=== PATIENT | female | born 1930 | race African-American/Black ===

== ENCOUNTER 2017-09-20 16:40 | Inpatient (IN) | payer OTHER ==
--- NOTE | 2017-09-20 16:55 | PDOC ---
History of Present Illness - General Chief Complaint: Nausea/Vomiting Stated Complaint: VOMITING Time Seen by Provider: 09/20/17 16:55 - History of Present Illness Initial Comments: The patient is an 87 year old female with a PMH of HTN, diabetes, PVD s/p right BKA, CAD, SVT, and dementia BIBEMS from [facility] after the staff noticed multiple episodes of coffee ground emesis. Patient denies any acute symptoms except for the vomiting. No acute symptoms such as fevers, chills , constipation, diarrhea, chest pain, SOB, or cough documented on [facility] transfer documents. 09/20/17 17:10 Past History - Past Medical History Allergies/Adverse Reactions: Allergies Allergy/AdvReac Type Severity Reaction Status Date / Time No Known Allergies Allergy Verified 09/20/17 17:28 Home Medications: Ambulatory Orders Aspirin [ASA -] 81 mg PO DAILY 01/30/14 Oxycodone HCl 5 mg PO BID 01/30/14 Acetaminophen [Tylenol .Extra-Strength -] 1,000 mg PO Q8H PRN #0 tablet Amlodipine Besylate [Norvasc -] 5 mg PO DAILY #0 tablet 02/04/14 Brimonidine Tartrate [Alphagan 0.2% -] 1 drop OU BID #0 drops 02/04/14 Insulin (Novolog) [Novolog Flexpen -] 0 units SQ ACHS #0 pen 02/04/14 Latanoprost 0.005% Eye Drops [Xalatan 0.005% Eye Drops -] 1 drop OU HS #0 drops 02/04/14 Cholecalciferol (Vitamin D3) [Vitamin D3 -] 50,000 unit PO WEEKLY 09/20/17 Docusate Sodium [Colace] 100 mg PO BID 09/20/17 Gabapentin [Neurontin -] 100 mg PO HS 09/20/17 Insulin (Levemir) [Levemir Flexpen -] 26 units SQ HS 09/20/17 Lisinopril [Prinivil] 30 mg PO DAILY 09/20/17 Magnesium Hydrox 2400MG/30Ml [Milk of Magnesia -] 30 ml PO DAILY PRN 09/20/17 Menthol [Icy Hot] 1 each TP ASDIR PRN 09/20/17 Mirtazapine [Remeron -] 30 mg PO HS 09/20/17 Polyethylene Glycol 3350 [Miralax (For Daily Use) -] 17 gm PO BID 09/20/17 Sennosides [Senna] 2 tab PO HS 09/20/17 Tramadol HCl 50 mg PO Q4H PRN 09/20/17 Dementia: Yes Diabetes: Yes HTN: Yes Hypercholesterolemia: Yes - Suicide/Smoking/Psychosocial Hx Smoking History: Unknown if ever smoked Have you smoked in the past 12 months: No Hx Alcohol Use: No Substance Use Type: None Review of Systems - Review of Systems Able to Perform ROS?: No (demented) *Physical Exam - Physical Exam General Appearance: Yes: Nourished, Appropriately Dressed, Apparent Distress, Mild Distress HEENT: positive: EOMI, CHALO, Normal ENT Inspection, Normal Voice Neck: positive: Trachea midline, Normal Thyroid, Supple. negative: Tender, Rigid Respiratory/Chest: positive: Lungs Clear, Normal Breath Sounds. negative: Chest Tender, Respiratory Distress Cardiovascular: positive: Regular Rhythm, Regular Rate Gastrointestinal/Abdominal: positive: Normal Bowel Sounds, Distended. negative : Tender, Flat Musculoskeletal: negative: Normal Inspection (Overall frail and weak) Extremity: positive: Normal Capillary Refill, Normal Inspection Integumentary: positive: Normal Color, Dry, Warm Neurologic: positive: Alert, Other (Pelasantly demented). negative: Fully Oriented ED Treatment Course - LABORATORY CBC & Chemistry Diagram: 09/23/17 05:40 09/23/17 05:40 Medical Decision Making - Medical Decision Making 87 year old female with multiple episodes of coffee ground emesis at [facility] and in our ED. No hiatory of UGIB and patient has no history of liver pathology so will have ot be evaluated for these pathologies on this admission Given Protonix 40, 2L IV NS, Coffee Ground Emesis seems to have ceased. @ units PRBC ordered but held because H/H only one unit below previous (chronic anemia) . Admitted patient under Dr. Grimes to the ICU under Dr. Lund. Switched over to protonix drip from 40 BID with appropriate consults placed. 09/20/17 19:32 *DC/Admit/Observation/Transfer Diagnosis at time of Disposition: Upper gastrointestinal hemorrhage - Referrals - Patient Instructions - Post Discharge Activity
--- NOTE | 2017-09-20 16:59 | PDOC ---
Attending Attestation - Resident Resident Name: Melina Garnettcharlesbam - HPI HPI: 09/24/17 09:20 Pt presents to the ED complaining of a one day history of coffee ground emesis. Denies other complaints. Extensive history as described in resident note. Patient is demented and is unable to give complete history. - Physicial Exam PE: 09/24/17 09:33 Agree with resident exam. Patient is alert but confused. Lungs are clear. Abdomen is soft, non tender and non distended. - Medical Decision Making 09/24/17 09:39 Pt presents to the ED with coffee ground emesis. Brief episode of hypotension, resolved after IV fluids. Hgb is stable. Will start protonix, admit to medicine for treatment of UGI bleed.
[2017-09-20] MEDS ORDERED: PANTOPRAZOLE SODIUM 40 MG VIAL IVPUSH ONE (17:20)
[2017-09-20] MEDS ORDERED: SODIUM CHLORIDE 0.9% 500 ML INFUS.BAG IV ONE ×2 (17:20→19:02)
[2017-09-20] MEDS ORDERED: ONDANSETRON 4 MG/2 ML VIAL IVPUSH ONE (17:23)
[2017-09-20 17:31] LABS: EOS % 1.3 % (0-4.5); HEMOGLOBIN 10.9 GM/dL (10.7-15.3); LYMPH % 27.8 % (8-40); MCH 27.4 pg (25.7-33.7); MCHC 32.9 g/dl (32.0-36.0); MEAN CELL VOLUME 83.3 fl (80-96); MEAN PLT VOLUME 8.6 fl (7.5-11.1); MONO % 8.1 % (3.8-10.2); NEUT % 61.8 % (42.8-82.8); PLATELET COUNT 309 K/MM3 (134-434); RBC 3.96 M/mm3 (3.60-5.2); RDW 15.9 % (11.6-15.6); WHITE BLOOD COUNT 11.2 K/mm3 (4.0-10.0)
[2017-09-20 17:46] LABS: URINE APPEARANCE CLOUDY; URINE BILIRUBIN NEGATIVE (<2.0 mg/dL); URINE COLOR AMBER; URINE GLUCOSE (UA) NEGATIVE (NEGATIVE); URINE KETONE TRACE (NEGATIVE); URINE LEUK ESTERASE NEGATIVE (NEGATIVE); URINE NITRITE NEGATIVE (NEGATIVE); URINE PROTEIN NEGATIVE (NEGATIVE); URINE UROBILINOGEN NEGATIVE mg/dL (0.2-1.0)
[2017-09-20] MEDS ORDERED: PANTOPRAZOLE SODIUM 40 MG VIAL ONE ×4 (17:52→21:00)
[2017-09-20] MEDS ORDERED: ONDANSETRON 4 MG/2 ML VIAL ONE ×2 (17:52→21:00)
[2017-09-20 17:57] LABS: INR 1.17 (0.82-1.09); PROTHROMBIN TIME (PATIENT) 13.2 SEC (9.7-13.0)
[2017-09-20 18:17] LABS: PHOSPHOROUS 3.4 mg/dL (2.5-4.9)
[2017-09-20 18:19] LABS: MAGNESIUM 2.6 mg/dL (1.8-2.4)
[2017-09-20 18:21] LABS: ALBUMIN 3.6 g/dl (3.4-5.0); ALK PHOS 70 U/L (45-117); ANION GAP 8 (8-16); BILIRUBIN,TOTAL 0.2 mg/dL (0.2-1.0); BLOOD UREA NITROGEN 44 mg/dL (7-18); CALCIUM 9.3 mg/dL (8.5-10.1); CHLORIDE 106 mmol/L (98-107); CO2 24 mmol/L (21-32); CREATININE 1.9 mg/dL (0.55-1.02); GLUCOSE,RANDOM 172 mg/dL (74-106); SGPT/ALT 31 U/L (12-78); SODIUM 138 mmol/L (136-145); TOT PROT 7.2 g/dl (6.4-8.2)
[2017-09-20 18:36] LABS: POTASSIUM 5.3 mmol/L (3.5-5.1); SGOT/AST 23 U/L (15-37)
--- NOTE | 2017-09-20 19:43 | PN ---
Teaching Attending Note Name of Resident: Arely Macedo ATTENDING PHYSICIAN STATEMENT I saw and evaluated the patient. I reviewed the resident's note and discussed the case with the resident. I agree with the resident's findings and plan as documented. SUBJECTIVE: 87 yo F with pmhx. of HTN, DM, PVD s/p R. BKA, CAD, SVT, and dementia who was BIBA from [facility] after coffee ground emesis, multiple times No chest pain or pressure. No shortness of breath. States she had plums earlier and she vomited that. Denies any current chest pain or pressure. No current nausea or vomiting. No diarrhea. States last BM was yesterday and brown, solid. No blood per rectum. No dark or tarry stools OBJECTIVE: Physical: VS: Vital Signs Period Temp Pulse Resp BP Sys/Cabral Pulse Ox Last 24 Hr 98.3 F-99.0 F 97-110 18-18 85-130/52-70 97-100 GEN: NAD, Resting in bed, AA0x3 HEENT: NCAT, PERRL, Throat without erythema or exudates CARD: RRR S1, S2 RESP: CTAB ABD: Distended, BSX4, NTD to palpation EXT: R. BKA, LLE - C/C/E, Bilateral UE - C/C/E, unable to move pt. to examine low back/gluteus. CBCD WBC 11.2 K/mm3 (4.0-10.0) H D 09/20/17 17:20 RBC 3.96 M/mm3 (3.60-5.2) 09/20/17 17:20 Hgb 10.9 GM/dL (10.7-15.3) 09/20/17 17:20 Hct 33.0 % (32.4-45.2) 09/20/17 17:20 MCV 83.3 fl (80-96) 09/20/17 17:20 MCHC 32.9 g/dl (32.0-36.0) 09/20/17 17:20 RDW 15.9 % (11.6-15.6) H 09/20/17 17:20 Plt Count 309 K/MM3 (134-434) 09/20/17 17:20 MPV 8.6 fl (7.5-11.1) D 09/20/17 17:20 CMP Sodium 138 mmol/L (136-145) 09/20/17 17:20 Potassium 5.3 mmol/L (3.5-5.1) H 09/20/17 17:20 Chloride 106 mmol/L (98-107) 09/20/17 17:20 Carbon Dioxide 24 mmol/L (21-32) 09/20/17 17:20 Anion Gap 8 (8-16) 09/20/17 17:20 BUN 44 mg/dL (7-18) H 09/20/17 17:20 Creatinine 1.9 mg/dL (0.55-1.02) H 09/20/17 17:20 Creat Clearance w eGFR 24.89 (>60) 09/20/17 17:20 Random Glucose 172 mg/dL (74-106) H 09/20/17 17:20 Calcium 9.3 mg/dL (8.5-10.1) 09/20/17 17:20 Total Bilirubin 0.2 mg/dL (0.2-1.0) D 09/20/17 17:20 AST 23 U/L (15-37) 09/20/17 17:20 ALT 31 U/L (12-78) 09/20/17 17:20 Alkaline Phosphatase 70 U/L (45-117) 09/20/17 17:20 Total Protein 7.2 g/dl (6.4-8.2) 09/20/17 17:20 Albumin 3.6 g/dl (3.4-5.0) 09/20/17 17:20 CARDIAC ENZYMES Creatine Kinase 44 IU/L (26-192) 09/20/17 17:20 Troponin I 0.02 ng/ml (0.00-0.05) 09/20/17 17:20 CXR: No acute process EKG: NSR St-T changes Inferolateral lead, no elevation Home Medications Medication Instructions Recorded Aspirin [ASA -] 81 mg PO DAILY 01/30/14 Oxycodone HCl 5 mg PO BID 01/30/14 Acetaminophen [Tylenol 1,000 mg PO Q8H PRN #0 tablet 02/04/14 .Extra-Strength -] Amlodipine Besylate [Norvasc -] 5 mg PO DAILY #0 tablet 02/04/14 Brimonidine Tartrate [Alphagan 1 drop OU BID #0 drops 02/04/14 0.2% -] Insulin (Novolog) [Novolog Flexpen 0 units SQ ACHS #0 pen 02/04/14 -] Latanoprost 0.005% Eye Drops 1 drop OU HS #0 drops 02/04/14 [Xalatan 0.005% Eye Drops -] Cholecalciferol (Vitamin D3) 50,000 unit PO WEEKLY 09/20/17 [Vitamin D3 -] Docusate Sodium [Colace] 100 mg PO BID 09/20/17 Gabapentin [Neurontin -] 100 mg PO HS 09/20/17 Insulin (Levemir) [Levemir Flexpen 26 units SQ HS 09/20/17 -] Lisinopril [Prinivil] 30 mg PO DAILY 09/20/17 Magnesium Hydrox 2400MG/30Ml [Milk 30 ml PO DAILY PRN 09/20/17 of Magnesia -] Menthol [Icy Hot] 1 each TP ASDIR PRN 09/20/17 Mirtazapine [Remeron -] 30 mg PO HS 09/20/17 Polyethylene Glycol 3350 [Miralax 17 gm PO BID 09/20/17 (For Daily Use) -] Sennosides [Senna] 2 tab PO HS 09/20/17 Tramadol HCl 50 mg PO Q4H PRN 09/20/17 ASSESSMENT AND PLAN: 87 yo F with pmhx. of HTN, DM, PVD s/p R. BKA, CAD, SVT, and dementia who was BIBA from [facility] after coffee ground emesis, being admitted for Upper GI bleed. 1.) Upper GI Bleed/Abd.Distension - NPo - 2 Large Bore Ivs - CBC Q 6h - Coags - Type & Screen, consent - Protonix - Hold ASA - GI consult - CT ABD wo Con 2.) SIRS? Sepsis ( Tachy may be from vomiting and leukocytosis reactive - Hold Abx. for now - Unkown Etiology - CT ABD wo con - Johns Cx - Repeat LA - IVF 3.) HTN - Hold MARILEE, Norvasc 4.) DM - FS - RAISS 5.) TRAY - U Lytes - Gentle IVF - Renally Dose all Meds - Nephro consult 6.) CAD Hx. - Hold ASA, MARILEE - Trop/EKG- Monitor 7.) Dvt Ppx - SCDS Admit to ICU CC Time: 40 minutes
[2017-09-20] MEDS ORDERED: PANTOPRAZOLE SODIUM 80 MG in SODIUM CHLORIDE 100 ML IVPB SCH ×2 (20:00→20:30)
--- NOTE | 2017-09-20 20:26 | MSN ---
Admitting History and Physical - Admission Chief Complaint: coffee ground emesis History of Present Illness: Patient is an 87 year old female with past medical hx of HTN, diabetes, PVD (S/ p right BKA), CAD, SVT, dementia that presented to the ER after multiple boughts of coffee ground emesis while at [facility]. The patient is a poor historian but stated that she remembered eating plums earlier in the day before feeling nauseas. The patient stated that she only remembered vomiting one time and that it was black in color. The patient states that she has a good appetite, has no abdominal pain, is not dizziness or weak. The patient is also not currently nauseas or or having any difficulty having bowel movements, although she does not remember her previous bowel moment. The patient also denies any chest pain, SOB, fever or chills. ED resident visualized black coffee ground emesis while patient was in ED. While in the ED the patient was given IV zofran 4mg and started on IV NS and protonix drip. 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 Cardiovascular: Yes: Other (perypheral vascular disease) Infectious Disease: Yes: C-Diff Musculoskeletal: Yes: Other (Right lower limb BKA) Endocrine: Yes: Diabetes Mellitus - Past Surgical History Past Surgical History: Yes: Amputation - Smoking History Smoking history: Unknown if ever smoked Have you smoked in the past 12 months: No - Alcohol/Substance Use Hx Alcohol Use: No - Social History Usual Living Arrangement: Yes: Retirement ADL: Support Services Home Medications - Allergies Allergies/Adverse Reactions: Allergies Allergy/AdvReac Type Severity Reaction Status Date / Time No Known Allergies Allergy Verified 09/20/17 17:28 - Home Medications Home Medications: Ambulatory Orders Aspirin [ASA -] 81 mg PO DAILY 01/30/14 Oxycodone HCl 5 mg PO BID 01/30/14 Acetaminophen [Tylenol .Extra-Strength -] 1,000 mg PO Q8H PRN #0 tablet Amlodipine Besylate [Norvasc -] 5 mg PO DAILY #0 tablet 02/04/14 Brimonidine Tartrate [Alphagan 0.2% -] 1 drop OU BID #0 drops 02/04/14 Insulin (Novolog) [Novolog Flexpen -] 0 units SQ ACHS #0 pen 02/04/14 Latanoprost 0.005% Eye Drops [Xalatan 0.005% Eye Drops -] 1 drop OU HS #0 drops 02/04/14 Cholecalciferol (Vitamin D3) [Vitamin D3 -] 50,000 unit PO WEEKLY 09/20/17 Docusate Sodium [Colace] 100 mg PO BID 09/20/17 Gabapentin [Neurontin -] 100 mg PO HS 09/20/17 Insulin (Levemir) [Levemir Flexpen -] 26 units SQ HS 09/20/17 Lisinopril [Prinivil] 30 mg PO DAILY 09/20/17 Magnesium Hydrox 2400MG/30Ml [Milk of Magnesia -] 30 ml PO DAILY PRN 09/20/17 Menthol [Icy Hot] 1 each TP ASDIR PRN 09/20/17 Mirtazapine [Remeron -] 30 mg PO HS 09/20/17 Polyethylene Glycol 3350 [Miralax (For Daily Use) -] 17 gm PO BID 09/20/17 Sennosides [Senna] 2 tab PO HS 09/20/17 Tramadol HCl 50 mg PO Q4H PRN 09/20/17 Review of Systems - Review of Systems Constitutional: denies: Chills, Fever, Lethargy Cardiovascular: denies: Chest Pain, Shortness of Breath Respiratory: denies: Cough, SOB Gastrointestinal: reports: Nausea, Vomiting. denies: Abdominal Pain, Constipation, Diarrhea Genitourinary: reports: No Symptoms Neurological: denies: Dizziness Physical Examination Vital Signs: Vital Signs Temperature 99.0 F 09/20/17 17:00 Pulse Rate 110 H 09/20/17 19:06 Respiratory Rate 18 09/20/17 19:06 Blood Pressure 130/53 09/20/17 19:06 O2 Sat by Pulse Oximetry (%) 98 09/20/17 19:06 Constitutional: Yes: Well Nourished, No Distress, Calm Eyes: Yes: Conjunctiva Clear, PERRL, Other (no conjuctival pallor noted) HENT: Yes: Atraumatic, Normocephalic Neck: Yes: Trachea Midline Cardiovascular: Yes: Tachycardia, S1, S2 Respiratory: Yes: Regular, CTA Bilaterally Gastrointestinal: Yes: Distention, Hyperactive Bowel Sounds ...Rectal Exam: Yes: Guaiac Negative Musculoskeletal: Yes: Other (right BKA) Extremities: Yes: Amputation (Right BKA) Wound/Incision: Yes: Well Approximated Neurological: Yes: Alert, Oriented Labs: CBC, BMP 09/20/17 17:20 09/20/17 17:20 Problem List - Problems (1) Bloody vomitus Code(s): K92.0 - HEMATEMESIS Assessment/Plan Patient is an 87 year old female with pmx of HTN, Diabetes, PVD (s/p R BKA), CAD , and dementia who is presnitng for coffee ground emesis that started today. Problem list: #Coffee ground emesis - R/O UGIB vs Obstruction - hb decreased from 10.9 on admission to 8.9 - Stool Occult blood test negative in ER - obtain CT with oral contrast - GI consult placed, follow up with possibility of upper endoscopy - place two large bore IVs - type/screen, and Coags - npo - start IV protonix - continue N/S - continue Zofran 4 mg PRN #TRAY - BUN 44 and Cr 1.9, elevated from baseline of BUN 24 and Cr 1.1 - continue hydration - hold MARILEE - obtain urine electrolytes - continue to monitor - nephrology consult placed #HTN - hold amlodipdine becasue NPO - hold ACER due to TRAY - continue to monitor BP - consider IV medication if the patient has increased BP # Diabetes - Start insulin sliding scale - hold at home medications #PVD and CAD - Repeat troponins - hold aspirin secondary to possible bleed - EKG showed new t wave changes in the inferior lateral leads, continue to monitor for signs of ACS #elevated WBC - possible reactive vs infectious process - obtain blood culture - monitor vital sign - search for possible source F/E/N -N/S -no electrolytes at this time -NPO Dispo - Admitted to ICU
[2017-09-20 20:28] LABS: BASO % 0.5 % (0-2.0); EOS % 1.2 % (0-4.5); HEMATOCRIT 27.4 % (32.4-45.2); HEMOGLOBIN 8.9 GM/dL (10.7-15.3); LYMPH % 17.4 % (8-40); MCHC 32.4 g/dl (32.0-36.0); MEAN CELL VOLUME 83.3 fl (80-96); MEAN PLT VOLUME 8.9 fl (7.5-11.1); MONO % 7.3 % (3.8-10.2); NEUT % 73.6 % (42.8-82.8); PLATELET COUNT 297 K/MM3 (134-434); RBC 3.29 M/mm3 (3.60-5.2); RDW 16.4 % (11.6-15.6)
[2017-09-20] MEDS ORDERED: INSULIN SLIDING SCALE (NOVOLOG) 1 VIAL SQ SCH (20:45)
[2017-09-20] MEDS ORDERED: PANTOPRAZOLE SODIUM 160 MG in DEXTROSE 5%-WATER - 290 ML IVPB SCH (20:45)
[2017-09-20] MEDS ORDERED: SODIUM CHLORIDE 1,000 ML IV SCH ×2 (20:45→21:00)
--- NOTE | 2017-09-20 20:47 | HP ---
CHIEF COMPLAINT: coffee ground emesis HISTORY OF PRESENT ILLNESS: Patient is a 87 F with a PMHx of HTN, DM, PVD s/p R BKA, CAD, Dementia, presented to the ED from [facility] because of multiple Coffee ground emesis. Patient is a poor historian. Patient mentions eating plums at the custodial that her friend gave which she says she vomited. She described the vomit as black in color. ED resident says the patient had multiple episodes of coffee ground emesis in the ED. Patient currently denies nausea. She said she had 1 normal BM today and yesterday. Patient denies chest pain, sob, dizziness, nausea, bloody stools, dysuria, diarrhea. ER course was notable for: (1) SIRS: Tachy 120, WBC 11.2 (2) IV fluids, Protonix, Zofran Recent Travel: n/a PAST MEDICAL HISTORY: per HPI PAST SURGICAL HISTORY: r bka Social History: Smoking: denies Alcohol:denies Drugs: denies Family History: Allergies No Known Allergies Allergy (Verified 09/20/17 17:28) HOME MEDICATIONS: Home Medications Medication Instructions Recorded Aspirin [ASA -] 81 mg PO DAILY 01/30/14 Oxycodone HCl 5 mg PO BID 01/30/14 Acetaminophen [Tylenol 1,000 mg PO Q8H PRN #0 tablet 02/04/14 .Extra-Strength -] Amlodipine Besylate [Norvasc -] 5 mg PO DAILY #0 tablet 02/04/14 Brimonidine Tartrate [Alphagan 1 drop OU BID #0 drops 02/04/14 0.2% -] Insulin (Novolog) [Novolog Flexpen 0 units SQ ACHS #0 pen 02/04/14 -] Latanoprost 0.005% Eye Drops 1 drop OU HS #0 drops 02/04/14 [Xalatan 0.005% Eye Drops -] Cholecalciferol (Vitamin D3) 50,000 unit PO WEEKLY 09/20/17 [Vitamin D3 -] Docusate Sodium [Colace] 100 mg PO BID 09/20/17 Gabapentin [Neurontin -] 100 mg PO HS 09/20/17 Insulin (Levemir) [Levemir Flexpen 26 units SQ HS 09/20/17 -] Lisinopril [Prinivil] 30 mg PO DAILY 09/20/17 Magnesium Hydrox 2400MG/30Ml [Milk 30 ml PO DAILY PRN 09/20/17 of Magnesia -] Menthol [Icy Hot] 1 each TP ASDIR PRN 09/20/17 Mirtazapine [Remeron -] 30 mg PO HS 09/20/17 Polyethylene Glycol 3350 [Miralax 17 gm PO BID 09/20/17 (For Daily Use) -] Sennosides [Senna] 2 tab PO HS 09/20/17 Tramadol HCl 50 mg PO Q4H PRN 09/20/17 REVIEW OF SYSTEMS CONSTITUTIONAL: Absent: fever, chills, diaphoresis, generalized weakness, malaise, loss of appetite, weight change CARDIOVASCULAR: Absent: chest pain, syncope, palpitations, irregular heart rate, lightheadedness , peripheral edema RESPIRATORY: Absent: cough, shortness of breath, dyspnea with exertion, orthopnea, wheezing, stridor, hemoptysis GASTROINTESTINAL: vomited Absent: abdominal pain, abdominal distension, nausea, diarrhea, constipation, melena, hematochezia GENITOURINARY: Absent: dysuria, frequency, urgency, hesitancy, hematuria, flank pain, genital pain ENDOCRINE: Absent: unexplained weight gain, unexplained weight loss, heat intolerance, cold intolerance NEUROLOGIC: Absent: headache, focal weakness or paresthesias, dizziness, unsteady gait, seizure, mental status changes, bladder or bowel incontinence PHYSICAL EXAMINATION Vital Signs - 24 hr 09/20/17 09/20/17 09/20/17 16:40 17:00 17:50 Temperature 98.3 F 99.0 F Pulse Rate 100 H Pulse Rate [ 103 H Apical] Respiratory 18 18 Rate Blood Pressure 126/60 Blood Pressure 85/52 [Right Arm] O2 Sat by Pulse 100 100 100 Oximetry (%) 09/20/17 09/20/17 18:22 19:06 Temperature Pulse Rate Pulse Rate [ 97 H 110 H Apical] Respiratory 18 18 Rate Blood Pressure Blood Pressure 120/70 130/53 [Right Arm] O2 Sat by Pulse 97 98 Oximetry (%) GENERAL: A/O x1 EYES: extraocular movements intact, sclera anicteric, conjunctiva clear. No lid lag. EARS, NOSE, THROAT: oropharynx clear without exudates. Moist mucous membranes. NECK: supple without lymphadenopathy, JVD, or masses. LUNGS: Breath sounds equal, clear to auscultation bilaterally. No wheezes, and no crackles HEART: tachy, normal S1 and S2 without murmur, rub or gallop. ABDOMEN: Hyperactive bowel sounds, distended abdomen, nontender to palpation. UPPER EXTREMITIES: 2+ pulses, warm, No peripheral edema. LOWER EXTREMITIES: 2+ pulses, No peripheral edema. R L amputation below knee NEUROLOGICAL: Cranial nerves II-XII intact. Normal speech. Laboratory Results - last 24 hr 09/20/17 09/20/17 09/20/17 17:11 17:20 17:20 WBC 11.2 H D RBC 3.96 Hgb 10.9 Hct 33.0 MCV 83.3 MCH 27.4 MCHC 32.9 RDW 15.9 H Plt Count 309 MPV 8.6 D Neutrophils % 61.8 Lymphocytes % 27.8 D Monocytes % 8.1 Eosinophils % 1.3 Basophils % 1.0 PT with INR 13.20 H INR 1.17 H Sodium Potassium Chloride Carbon Dioxide Anion Gap BUN Creatinine Creat Clearance w eGFR Random Glucose Lactic Acid Calcium Phosphorus Magnesium Total Bilirubin AST ALT Alkaline Phosphatase Creatine Kinase Troponin I Total Protein Albumin Urine Color Urine Appearance Urine pH Ur Specific Trail Urine Protein Urine Glucose (UA) Urine Ketones Urine Blood Urine Nitrite Urine Bilirubin Urine Urobilinogen Ur Leukocyte Esterase Stool Occult Blood Negative Blood Type Antibody Screen 09/20/17 09/20/17 09/20/17 17:20 17:20 17:20 WBC RBC Hgb Hct MCV MCH MCHC RDW Plt Count MPV Neutrophils % Lymphocytes % Monocytes % Eosinophils % Basophils % PT with INR INR Sodium 138 Potassium 5.3 H Chloride 106 Carbon Dioxide 24 Anion Gap 8 BUN 44 H Creatinine 1.9 H Creat Clearance w eGFR 24.89 Random Glucose 172 H Lactic Acid 2.7 H* Calcium 9.3 Phosphorus Magnesium Total Bilirubin 0.2 D AST 23 ALT 31 Alkaline Phosphatase 70 Creatine Kinase Troponin I Total Protein 7.2 Albumin 3.6 Urine Color Urine Appearance Urine pH Ur Specific Trail Urine Protein Urine Glucose (UA) Urine Ketones Urine Blood Urine Nitrite Urine Bilirubin Urine Urobilinogen Ur Leukocyte Esterase Stool Occult Blood Blood Type O POSITIVE Antibody Screen Negative 09/20/17 09/20/17 17:20 17:30 WBC RBC Hgb Hct MCV MCH MCHC RDW Plt Count MPV Neutrophils % Lymphocytes % Monocytes % Eosinophils % Basophils % PT with INR INR Sodium Potassium Chloride Carbon Dioxide Anion Gap BUN Creatinine Creat Clearance w eGFR Random Glucose Lactic Acid Calcium Phosphorus 3.4 Magnesium 2.6 H Total Bilirubin AST ALT Alkaline Phosphatase Creatine Kinase 44 Troponin I 0.02 Total Protein Albumin Urine Color Sanna Urine Appearance Cloudy Urine pH [address] 1.024 Urine Protein Negative Urine Glucose (UA) Negative Urine Ketones Trace H Urine Blood Negative Urine Nitrite Negative Urine Bilirubin Negative Urine Urobilinogen Negative Ur Leukocyte Esterase Negative Stool Occult Blood Blood Type Antibody Screen ASSESSMENT/PLAN: 87 yo F with a PMHx HTN, DM, PVD, s/p R BKA, CAD, dementia, presented from [facility] [place] with coffee ground emesis and abdominal distention. #Upper GI bleed -Hgb in ED 10.9, repeat Hgb 8.9 -CT Abd w/ Oral contrast -NPO -CBC q6h -Coags -Type screen -2 large bore IVs -Protonix -Aspirin held -GI consulted: Dr Mccormick -FOBT neg -Transfuse if Hgb<7 #Abdominal distention -KUB -CT Abd w/ oral contrast #SIRS -tachy, elevated wbc -likely reactive vs unlikely infectious -Bcx,Ucx -Ct Abd -Hold Abx at this time -Repeat LA -IVF -monitor VS #TRAY -1.1 cr in July from [place] paperwork -Urine lytes, cr -IV fluids @83ml/hour -renally dose all meds -avoid nephrotoxins -Nephro consulted #HTN/CAD -On Norvasc 5mg at home. -HELD norvasc due to hypotension and patient NPO -Will monitor BP -Held aspirin due to UGIB -cont when appropriate #DM -BGM -ISS -Held Home Levemir 26U HS #Hyperkalemia/Magnesium -5.3 K, Mg 2.6 -Possibly taking milk of magnesia a CO (need med rec) -will monitor #FEN -IV fluids @ 83ml/hour -Monitor K -NPO #PPX -SCDs -Protonix Gtt ICU admission Visit type - Emergency Visit Emergency Visit: Yes ED Registration Date: 09/20/17 Care time: The patient presented to the Emergency Department on the above date and was hospitalized for further evaluation of their emergent condition. - New Patient This patient is new to me today: Yes Date on this admission: 09/25/17 - Critical Care Critical Care patient: Yes Total Critical Care Time (in minutes): 40 Critical Care Statement: The care of this patient involved high complexity decision making to prevent further life threatening deterioration of the patient 's condition and/or to evaluate & treat vital organ system(s) failure or risk of failure. Hospitalist Screening - Colonoscopy Questionnaire Colonoscopy Questionnaire: Colonoscopy Questionnaire - Patient: 50 - 75 years old and never had a screening colonoscopy: Unknown History of colon or rectal polyps, or CA: Unknown History of IBD, Crohn's disease or UC: Unknown History of abdominal radiation therapy as a child: Unknown - Relative: 1 with colon or rectal CA, or polyps at age 60 or younger: Unknown Colon or rectal CA diagnosed at age 45 or younger: Unknown Multiple relatives with colon or rectal CA: Unknown - Outcome: Screening Result: Negative Screen
[2017-09-20] MEDS ORDERED: ONDANSETRON 4 MG/2 ML VIAL IVPUSH PRN (21:03)
[2017-09-20] MEDS ORDERED: BRIMONIDINE TARTRATE 0.2% OPHTHALMIC 5 ML BOTTLE OU SCH (22:00)
[2017-09-20] MEDS ORDERED: LATANOPROST 0.005% OPHTH SOLN 2.5ML BOTTLE OU SCH (22:00)
[2017-09-20] MEDS ORDERED: SODIUM CHLORIDE 1,000 ML IV STA (22:09)
[2017-09-20] MEDS: CHLORHEXIDINE GLUCONATE 4% CLEANSER FOR DECOLONIZATION TP SCH (22:37)
[2017-09-20] MEDS: SODIUM CHLORIDE 1,000 ML IV SCH (23:07)
[2017-09-20] MEDS: BRIMONIDINE TARTRATE 0.2% OPHTHALMIC 5 ML BOTTLE OU SCH (23:08)
[2017-09-20] MEDS: LATANOPROST 0.005% OPHTH SOLN 2.5ML BOTTLE OU SCH (23:08)
[2017-09-20] MEDS: MUPIROCIN 2% TOPICAL OINTMENT FOR DECOLONIZATION NS SCH (23:09)
[2017-09-21] MEDS ORDERED: INSULIN SLIDING SCALE (NOVOLOG) 1 VIAL SQ SCH
[2017-09-21 00:42] LABS: HEMOGLOBIN 8.1 GM/dL (10.7-15.3); MCHC 32.6 g/dl (32.0-36.0)
[2017-09-21 00:43] LABS: HEMATOCRIT 24.9 % (32.4-45.2); MEAN PLT VOLUME 8.5 fl (7.5-11.1); PLATELET COUNT 234 K/MM3 (134-434); RDW 16.2 % (11.6-15.6); WHITE BLOOD COUNT 9.6 K/mm3 (4.0-10.0)
[2017-09-21] MEDS: INSULIN SLIDING SCALE (NOVOLOG) 1 VIAL SQ SCH ×6 (02:00→23:17)
[2017-09-21 04:25] LABS: ALBUMIN 2.9 g/dl (3.4-5.0); ALK PHOS 55 U/L (45-117); ANION GAP 10 (8-16); BILIRUBIN,TOTAL 0.2 mg/dL (0.2-1.0); BLOOD UREA NITROGEN 35 mg/dL (7-18); CHLORIDE 113 mmol/L (98-107); CO2 21 mmol/L (21-32); CREATININE 1.4 mg/dL (0.55-1.02); GLUCOSE,RANDOM 138 mg/dL (74-106); MAGNESIUM 2.3 mg/dL (1.8-2.4); PHOSPHOROUS 2.5 mg/dL (2.5-4.9); POTASSIUM 5.2 mmol/L (3.5-5.1); SGOT/AST 21 U/L (15-37); SGPT/ALT 24 U/L (12-78); SODIUM 144 mmol/L (136-145); TOT PROT 5.7 g/dl (6.4-8.2)
[2017-09-21] MEDS ORDERED: PANTOPRAZOLE SODIUM 80 MG in SODIUM CHLORIDE 100 ML IVPB SCH (06:00)
[2017-09-21 06:26] LABS: INR 1.19 (0.82-1.09); PROTHROMBIN TIME (PATIENT) 13.4 SEC (9.7-13.0)
[2017-09-21 06:38] LABS: CALCIUM 7.7 mg/dL (8.5-10.1); CHLORIDE 114 mmol/L (98-107); SODIUM 144 mmol/L (136-145)
[2017-09-21 06:45] LABS: ALBUMIN 2.8 g/dl (3.4-5.0); ALK PHOS 53 U/L (45-117); ANION GAP 8 (8-16); BILIRUBIN,TOTAL 0.2 mg/dL (0.2-1.0); BLOOD UREA NITROGEN 31 mg/dL (7-18); CO2 22 mmol/L (21-32); CREATININE 1.2 mg/dL (0.55-1.02); GLUCOSE,RANDOM 110 mg/dL (74-106); MAGNESIUM 2.2 mg/dL (1.8-2.4); PHOSPHOROUS 2.5 mg/dL (2.5-4.9); SGOT/AST 20 U/L (15-37); SGPT/ALT 21 U/L (12-78); TOT PROT 5.5 g/dl (6.4-8.2)
[2017-09-21 09:21] LABS: HEMATOCRIT 23.8 % (32.4-45.2); HEMOGLOBIN 7.6 GM/dL (10.7-15.3); MCH 26.8 pg (25.7-33.7); MEAN CELL VOLUME 83.6 fl (80-96); MEAN PLT VOLUME 7.8 fl (7.5-11.1); PLATELET COUNT 220 K/MM3 (134-434); RBC 2.84 M/mm3 (3.60-5.2); WHITE BLOOD COUNT 8.3 K/mm3 (4.0-10.0)
--- NOTE | 2017-09-21 10:29 | EKG ---
Test Reason : Blood Pressure : / mmHG Vent. Rate : 111 BPM Atrial Rate : 111 BPM P-R Int : 122 ms QRS Dur : 102 ms QT Int : 334 ms P-R-T Axes : 058 030 178 degrees QTc Int : 454 ms SINUS TACHYCARDIA ABNORMAL ECG WHEN COMPARED WITH ECG OF 30-JAN-2014 09:56, SINUS RHYTHM HAS REPLACED JUNCTIONAL RHYTHM VENT. RATE HAS INCREASED BY 43 BPM T WAVE INVERSION NOW EVIDENT IN INFERIOR LEADS T WAVE INVERSION NOW EVIDENT IN LATERAL LEADS Confirmed by RESHMA MAYA MD ([id number]) on 09/21/2017 10:28:54 AM Referred By: Confirmed By:RESHMA MAYA MD
[2017-09-21] MEDS: BRIMONIDINE TARTRATE 0.2% OPHTHALMIC 5 ML BOTTLE OU SCH ×2 (10:38→22:30)
[2017-09-21] MEDS ORDERED: PT OWN MED DRAWER 7, Y5N ONE (10:41)
[2017-09-21] MEDS: MUPIROCIN 2% TOPICAL OINTMENT FOR DECOLONIZATION NS SCH ×2 (11:00→23:17)
--- NOTE | 2017-09-21 11:20 | PN ---
Teaching Attending Note Name of Resident: Becka Lewis ATTENDING PHYSICIAN STATEMENT I saw and evaluated the patient. I reviewed the resident's note and discussed the case with the resident. I agree with the resident's findings and plan as documented. SUBJECTIVE: Pt seen and examined in the ICU. Briefly, 87yo female with h/o HTN, DM, PAD s/p R BKA, CAD, dementia who was transferred from the assisted for coffee ground emesis. History not reliable given dementia. H/H dropping, denies abdominal pain. Has not vomited since admission to ICU. Abdominal film showing gastric distention. Seen by GI who is planning upper endoscopy. OBJECTIVE: Last Vital Signs Temp Pulse Resp BP Pulse Ox 98.4 F 88 12 111/47 100 09/21/17 09:28 09/21/17 09:28 09/21/17 09:28 09/21/17 09:28 09/21/17 08:11 Intake & Output 09/18/17 09/19/17 09/20/17 09/21/17 23:59 23:59 23:59 23:59 Intake Total 1000 Balance 1000 Weight 57.153 kg 57.198 kg Gen: NAD at rest Heart: RRR Lung: decreased breath sounds at the bases Abd: soft, nontender Ext: R BKA CBC, BMP 09/21/17 09:00 09/21/17 05:40 Active Medications Brimonidine Tartrate (Alphagan 0.2% -) 1 drop OU BID [facility] Last Admin: 09/21/17 10:38 Dose: 1 drop Chlorhexidine Gluconate (Hibiclens For Decolonization -) 1 applic TP HS [facility] Last Admin: 09/20/17 22:37 Dose: 1 applic Sodium Chloride (Normal Saline -) 1,000 mls @ 83 mls/hr IV ASDIR [facility] Last Admin: 09/20/17 23:07 Dose: 83 mls/hr Pantoprazole Sodium 80 mg/ (Sodium Chloride) 100 mls @ 10 mls/hr IVPB Q10H [facility] Stop: 09/21/17 15:59 Last Admin: 09/21/17 06:00 Dose: 10 mls/hr Pantoprazole Sodium 160 mg/ (Dextrose) 290 mls @ 14.5 mls/hr IVPB Q20H [facility] Insulin Aspart (Novolog Vial Sliding Scale -) 1 vial SQ Q4HPO [facility] PRN Reason: Protocol Last Admin: 09/21/17 10:30 Dose: Not Given Latanoprost (Xalatan 0.005% Eye Drops -) 1 drop OU HS [facility] Last Admin: 09/20/17 23:08 Dose: 1 drop Mupirocin (Bactroban Ointment (For Decolonization) -) 1 applic NS BID [facility] Stop: 09/25/17 21:59 Last Admin: 09/20/17 23:09 Dose: Not Given ASSESSMENT AND PLAN: GI Bleed Acute Blood Loss Anemia r/o Gastric/Duodenal Obstruction/Mass Lactic Acidosis Acute Kidney Injury HTN DM Dementia - monitor CBC, coags - transfuse as needed - continue protonix - IVF - for endoscopy - ensure large bore peripheral access - mechanical DVT prophylaxis - continue ICU monitoring critical care time spent in reviewing chart, evaluating patient and formulating plan 35 min
[2017-09-21] MEDS: SODIUM CHLORIDE 1,000 ML IV SCH ×2 (12:00→21:00)
--- NOTE | 2017-09-21 12:29 | CON.GI ---
Consult Consult Specialty:: GI Reason for Consultation:: coffee ground emesis - History of Present Illness History of Present Illness: chart reviewed. The events noted. As per initial intake: Patient is a 87 F with a PMHx of HTN, DM, PVD s/p R BKA, CAD, Dementia, presented to the ED from [facility] because of multiple Coffee ground emesis. Patient is a poor historian. Patient mentions eating pl[facility] the [facility] that her friend gave which she says she vomited. She described the vomit as black in color. ED resident says the patient had multiple episodes of coffee ground emesis in the ED. Patient currently denies nausea. She said she had 1 normal BM today and yesterday. Patient denies chest pain, sob, dizziness, nausea, bloody stools, dysuria, diarrhea. At the time of This encounter, the patient appears comfortable. Awake and alert. Not in distress, or pain. Denies abdominal symptoms. No further coffee -ground emesis, hematemesis, melena, hematochezia, diarrhea. The patient is drinking contrast material for scheduled CT abdomen and pelvis. No hemodynamic instability noted. Decrease in hemoglobin by 3 g overnight. - History Source History Provided By: Medical Record, Caregiver, Transfer Record - Past Medical History PUBLICITY MANAGER: Yes: Dementia Cardio/Vascular: Yes: Other (perypheral vascular disease) Infectious Disease: Yes: C-Diff Musculoskeletal: Yes: Other (Right lower limb BKA) Endocrine: Yes: Diabetes Mellitus - Past Surgical History Past Surgical History: Yes: Amputation - Alcohol/Substance Use Hx Alcohol Use: No - Smoking History Smoking history: Unknown if ever smoked Have you smoked in the past 12 months: No - Social History ADL: Support Services Home Medications - Allergies Allergies/Adverse Reactions: Allergies Allergy/AdvReac Type Severity Reaction Status Date / Time No Known Allergies Allergy Verified 09/20/17 17:28 - Home Medications Home Medications: Ambulatory Orders Aspirin [ASA -] 81 mg PO DAILY 01/30/14 Oxycodone HCl 5 mg PO BID 01/30/14 Acetaminophen [Tylenol .Extra-Strength -] 1,000 mg PO Q8H PRN #0 tablet Amlodipine Besylate [Norvasc -] 5 mg PO DAILY #0 tablet 02/04/14 Brimonidine Tartrate [Alphagan 0.2% -] 1 drop OU BID #0 drops 02/04/14 Insulin (Novolog) [Novolog Flexpen -] 0 units SQ ACHS #0 pen 02/04/14 Latanoprost 0.005% Eye Drops [Xalatan 0.005% Eye Drops -] 1 drop OU HS #0 drops 02/04/14 Cholecalciferol (Vitamin D3) [Vitamin D3 -] 50,000 unit PO WEEKLY 09/20/17 Docusate Sodium [Colace] 100 mg PO BID 09/20/17 Gabapentin [Neurontin -] 100 mg PO HS 09/20/17 Insulin (Levemir) [Levemir Flexpen -] 26 units SQ HS 09/20/17 Lisinopril [Prinivil] 30 mg PO DAILY 09/20/17 Magnesium Hydrox 2400MG/30Ml [Milk of Magnesia -] 30 ml PO DAILY PRN 09/20/17 Menthol [Icy Hot] 1 each TP [facility] PRN 09/20/17 Mirtazapine [Remeron -] 30 mg PO HS 09/20/17 Polyethylene Glycol 3350 [Miralax (For Daily Use) -] 17 gm PO BID 09/20/17 Sennosides [Senna] 2 tab PO HS 09/20/17 Tramadol HCl 50 mg PO Q4H PRN 09/20/17 Family Disease History - Family Disease History Family History: Unremarkable (noncontributory) Review of Systems Unable to obtain ROS, reason: dimension Physical Exam-GI Vital Signs: Vital Signs Temperature 98.4 F 09/21/17 10:00 Pulse Rate 88 09/21/17 10:00 Respiratory Rate 12 09/21/17 10:00 Blood Pressure 111/47 09/21/17 10:00 O2 Sat by Pulse Oximetry (%) 100 09/21/17 08:11 Constitutional: Yes: No Distress, Calm Eyes: Yes: Conjunctiva Clear HENT: Yes: Atraumatic Neck: Yes: Supple Cardiovascular: Yes: Regular Rate and Rhythm Respiratory: Yes: Regular ...Auscultate: Yes: Normoactive Bowel Sounds ...Rectal Exam: Yes: Guaiac Negative Neurological: Yes: Alert Labs: CBC, BMP 09/21/17 09:00 09/21/17 05:40 INR, PTT INR 1.19 (0.82-1.09) H 09/21/17 05:40 Laboratory Last Values WBC 8.3 K/mm3 (4.0-10.0) 09/21/17 09:00 RBC 2.84 M/mm3 (3.60-5.2) L 09/21/17 09:00 Hgb 7.6 GM/dL (10.7-15.3) L 09/21/17 09:00 Hct 23.8 % (32.4-45.2) L 09/21/17 09:00 MCV 83.6 fl (80-96) 09/21/17 09:00 MCH 26.8 pg (25.7-33.7) 09/21/17 09:00 MCHC 32.0 g/dl (32.0-36.0) 09/21/17 09:00 RDW 16.0 % (11.6-15.6) H 09/21/17 09:00 Plt Count 220 K/MM3 (134-434) 09/21/17 09:00 MPV 7.8 fl (7.5-11.1) 09/21/17 09:00 Neutrophils % 73.6 % (42.8-82.8) 09/20/17 20:15 Lymphocytes % 17.4 % (8-40) D 09/20/17 20:15 Monocytes % 7.3 % (3.8-10.2) 09/20/17 20:15 Eosinophils % 1.2 % (0-4.5) 09/20/17 20:15 Basophils % 0.5 % (0-2.0) 09/20/17 20:15 PT with INR 13.40 SEC (9.7-13.0) H 09/21/17 05:40 INR 1.19 (0.82-1.09) H 09/21/17 05:40 Sodium 144 mmol/L (136-145) 09/21/17 05:40 Potassium 5.0 mmol/L (3.5-5.1) 09/21/17 05:40 Chloride 114 mmol/L (98-107) H 09/21/17 05:40 Carbon Dioxide 22 mmol/L (21-32) 09/21/17 05:40 Anion Gap 8 (8-16) 09/21/17 05:40 BUN 31 mg/dL (7-18) H 09/21/17 05:40 Creatinine 1.2 mg/dL (0.55-1.02) H 09/21/17 05:40 Creat Clearance w eGFR 42.30 (>60) 09/21/17 05:40 POC Glucometer 178.51900 UNITS (80-120) 09/20/17 20:55 Random Glucose 110 mg/dL (74-106) H 09/21/17 05:40 Lactic Acid 1.0 mmol/L (0.0-2.0) 09/21/17 00:35 Calcium 7.7 mg/dL (8.5-10.1) L 09/21/17 05:40 Phosphorus 2.5 mg/dL (2.5-4.9) 09/21/17 05:40 Magnesium 2.2 mg/dL (1.8-2.4) 09/21/17 05:40 Total Bilirubin 0.2 mg/dL (0.2-1.0) 09/21/17 05:40 AST 20 U/L (15-37) 09/21/17 05:40 ALT 21 U/L (12-78) 09/21/17 05:40 Alkaline Phosphatase 53 U/L (45-117) 09/21/17 05:40 Creatine Kinase 40 IU/L (26-192) 09/21/17 00:35 Troponin I 0.15 ng/ml (0.00-0.05) H 09/21/17 00:35 Total Protein 5.5 g/dl (6.4-8.2) L 09/21/17 05:40 Albumin 2.8 g/dl (3.4-5.0) L 09/21/17 05:40 Urine Color Sanna 09/20/17 17:30 Urine Appearance Cloudy 09/20/17 17:30 Urine pH 5.0 (5.0-8.0) 09/20/17 17:30 Ur Specific [place] 1.024 (1.001-1.035) 09/20/17 17:30 Urine Protein Negative (NEGATIVE) 09/20/17 17:30 Urine Glucose (UA) Negative (NEGATIVE) 09/20/17 17:30 Urine Ketones Trace (NEGATIVE) H 09/20/17 17:30 Urine Blood Negative (NEGATIVE) 09/20/17 17:30 Urine Nitrite Negative (NEGATIVE) 09/20/17 17:30 Urine Bilirubin Negative (<2.0 mg/dL) 09/20/17 17:30 Urine Urobilinogen Negative mg/dL (0.2-1.0) 09/20/17 17:30 Ur Leukocyte Esterase Negative (NEGATIVE) 09/20/17 17:30 Ur Random Sodium 44 MMOL/L 09/21/17 00:35 Ur Random Potassium 60.7 MMOL/L 09/21/17 00:35 Ur Random Chloride 61 MMOL/L 09/21/17 00:35 Urine Creatinine 110.0 mg/dL (20-320) 09/21/17 00:35 Stool Occult Blood Negative (NEGATIVE) 09/20/17 17:20 Blood Type O POSITIVE 09/21/17 00:35 Antibody Screen Negative 09/21/17 00:35 Crossmatch See Detail 09/21/17 00:35 Imaging - Results Cat Scan: Report Reviewed ( cholelithiasis, no acute GI pathology.) Problem List - Problems (1) Upper gastrointestinal hemorrhage Code(s): K92.2 - GASTROINTESTINAL HEMORRHAGE, UNSPECIFIED Assessment/Plan Suspected upper GI bleeding. The patient is currently stable with no signs of ongoing gastrointestinal bleed. Unable to perform upper endoscopy due to patient drinking contrast. Plan endoscopy for tomorrow morning, or sooner if signs of active gastrointestinal bleed. Keep nothing by mouth. PPI IV piggyback twice a day. Close monitoring for signs and symptoms of acute blood loss. Unable to reach patient's son due to Telephone number, as documented in chart, not in service.
--- NOTE | 2017-09-21 12:44 | PN ---
Teaching Attending Note Name of Resident: Rudy Matthews ATTENDING PHYSICIAN STATEMENT I saw and evaluated the patient. I reviewed the resident's note and discussed the case with the resident. I agree with the resident's findings and plan as documented. SUBJECTIVE: Denies any pain, N/V or fever . No events over night , no new episodes of emesis OBJECTIVE: NAD . MMM CV: RRR, 2/6 Sm at RUSB. Lungs : minimal bibasilar crackles Abd: soft, slightly ditended in upper part. tympanic in upper part, no tenderness Ext: no edema or erythema . R BKA with clean normal stump with no skin breakdown ASSESSMENT AND PLAN: 87 y/o lady with h/o dementia , CAD, PVD, R BKA, DM , HTN, And SVt who was brought form [place] with coffee ground emesis . 1- Upper GI bleed. with acute blood loss anemia. r/o gastric or duodenal ulcers. r/o gastritis - PPI gtt - NPO - GI eval for EGD - transfuse RBC - repeat HB and monitor - cont IVF - hold ASA 2- Stomach distention: on exam and KUB. possible duodenal bulb ulcer with inflammation or ulcerated mass with partial obstruction - follow EGD 3- h/o HTN: old all antihypertensives in settig of GI bleed 4- H/o CAd, PVD: hold ASA Dispo : ICU level of care. Critical Care Total Critical Care Time (in minutes): 40 Critical Care Statement: The care of this patient involved high complexity decision making to prevent further life threatening deterioration of the patient 's condition and/or to evaluate & treat vital organ system(s) failure or risk of failure.
--- NOTE | 2017-09-21 13:02 | CONSULT ---
Consult - text type - Consultation Consultation Note: Renal Consult for TRAY This is a 87 year old woman with PMhx of Dementia, PVD s/p R BKA, Hypertension, DM who presented from home with coffee ground emesis and admitted for GI bleed with TRAY with Cr of 1.9. Pt is awake and alert and denies any history of kidney disease. No further emesis since admission. No Melena. Hgb has been down trending. Pt was on ACEi as a outpatient. BP is low/normal here. Pt denies any abd pain, N/V, chest pain, Fever, chills, flank pain. PMhx: as above Allergies: NKDA Family Hx: NC Social Hx: No T/A/D ROS: as per HPI Home Medications Medication Instructions Recorded Aspirin [ASA -] 81 mg PO DAILY 01/30/14 Oxycodone HCl 5 mg PO BID 01/30/14 Acetaminophen [Tylenol 1,000 mg PO Q8H PRN #0 tablet 02/04/14 .Extra-Strength -] Amlodipine Besylate [Norvasc -] 5 mg PO DAILY #0 tablet 02/04/14 Brimonidine Tartrate [Alphagan 1 drop OU BID #0 drops 02/04/14 0.2% -] Insulin (Novolog) [Novolog Flexpen 0 units SQ ACHS #0 pen 02/04/14 -] Latanoprost 0.005% Eye Drops 1 drop OU HS #0 drops 02/04/14 [Xalatan 0.005% Eye Drops -] Cholecalciferol (Vitamin D3) 50,000 unit PO WEEKLY 09/20/17 [Vitamin D3 -] Docusate Sodium [Colace] 100 mg PO BID 09/20/17 Gabapentin [Neurontin -] 100 mg PO HS 09/20/17 Insulin (Levemir) [Levemir Flexpen 26 units SQ HS 09/20/17 -] Lisinopril [Prinivil] 30 mg PO DAILY 09/20/17 Magnesium Hydrox 2400MG/30Ml [Milk 30 ml PO DAILY PRN 09/20/17 of Magnesia -] Menthol [Icy Hot] 1 each TP ASDIR PRN 09/20/17 Mirtazapine [Remeron -] 30 mg PO HS 09/20/17 Polyethylene Glycol 3350 [Miralax 17 gm PO BID 09/20/17 (For Daily Use) -] Sennosides [Senna] 2 tab PO HS 09/20/17 Tramadol HCl 50 mg PO Q4H PRN 09/20/17 Vital Signs Temperature 98.4 F 09/21/17 10:00 Pulse Rate 86 09/21/17 12:00 Respiratory Rate 12 09/21/17 12:00 Blood Pressure 131/58 09/21/17 12:00 O2 Sat by Pulse Oximetry (%) 100 09/21/17 08:11 Intake & Output 09/18/17 09/19/17 09/20/17 09/21/17 23:59 23:59 23:59 23:59 Intake Total 1000 Balance 1000 Weight 57.153 kg 57.198 kg NAD awake and alert MMM, No JVD RRR, no M/R CTA anterior exam soft NT/ND Right BKA, No LE edema, clubbing or cyanosis CBC, BMP 09/21/17 09:00 09/21/17 05:40 Current Medications Brimonidine Tartrate (Alphagan 0.2% -) 1 drop OU BID [facility] Last Admin: 09/21/17 10:38 Dose: 1 drop Chlorhexidine Gluconate (Hibiclens For Decolonization -) 1 applic TP [facility] Last Admin: 09/20/17 22:37 Dose: 1 applic Sodium Chloride (Normal Saline -) 1,000 mls @ 83 mls/hr IV ASDIR [facility] Last Admin: 09/20/17 23:07 Dose: 83 mls/hr Pantoprazole Sodium 80 mg/ (Sodium Chloride) 100 mls @ 10 mls/hr IVPB Q10H [facility] Stop: 09/21/17 15:59 Last Admin: 09/21/17 06:00 Dose: 10 mls/hr Pantoprazole Sodium 160 mg/ (Dextrose) 290 mls @ 14.5 mls/hr IVPB Q20H [facility] Insulin Aspart (Novolog Vial Sliding Scale -) 1 vial SQ Q4HPO [facility] PRN Reason: Protocol Last Admin: 09/21/17 10:30 Dose: Not Given Latanoprost (Xalatan 0.005% Eye Drops -) 1 drop OU [facility] Last Admin: 09/20/17 23:08 Dose: 1 drop Mupirocin (Bactroban Ointment (For Decolonization) -) 1 applic NS BID [facility] Stop: 09/25/17 21:59 Last Admin: 09/20/17 23:09 Dose: Not Given 87 year old woman with PMhx of Dementia, PVD s/p R BKA, Hypertension, DM who presented from home with coffee ground emesis and admitted for GI bleed with TRAY with Cr of 1.9. #Acute Kidney Injury #GI bleed with Anemia #Hx of hypertension now normotensive #DM Type @ Renal function improving with IVF Trend BUN/Cr continue gentle IVF while not getting transfusion Trend CBC, transfuse PRBC as per GI Continue PPI for endoscopy tomorrow Maintain off MARILEE/ARB for now Continue insulin sliding scale as per primary Will follow Jonatan Arredondo DO
--- NOTE | 2017-09-21 14:48 | CONSULT ---
Consultation: CONSULT REQUEST: We have been asked to medically evaluate this patient for suspected upper GIB. HISTORY OF PRESENT ILLNESS: 87F with PMH of dementia, htn, CAD, DM, PVD s/p Right BKA, presents from [facility] on [facility] with multiple episodes of coffee ground emesis. Pt pleasantly confused, alert and oriented x 1 (to self). Pt not a reliable historian. H/H trending down. Pt receiving 1U PRBCs now. No vomiting since admitted to the ICU. Ab xray reveals abdominal distention. GI (Dr. Mccormick) planning an EGD. Pt denies chest pain, sob, abdominal pain, nausea, vomiting, fever, chills. No events overnight. REVIEW OF SYSTEMS: CONSTITUTIONAL: Absent: fever, chills, diaphoresis HEENT: Absent: rhinorrhea, nasal congestion, ear pain, eye pain CARDIOVASCULAR: Absent: chest pain, palpitations, irregular heart rate, lightheadedness, peripheral edema RESPIRATORY: Absent: cough, shortness of breath, dyspnea with exertion, orthopnea, wheezing, stridor GASTROINTESTINAL: Absent: abdominal pain, abdominal distension, nausea, vomiting, diarrhea, constipation MUSCULOSKELETAL: Absent: myalgia, arthralgia, joint swelling, back pain, neck pain SKIN: Absent: rash, itching, pallor HEMATOLOGIC/IMMUNOLOGIC: Absent: easy bleeding, easy bruising NEUROLOGIC: Absent: headache, focal weakness or paresthesias PSYCHIATRIC: Absent: anxiety, depression PHYSICAL EXAMINATION Vital Signs - 24 hr 09/20/17 09/20/17 09/20/17 16:40 17:00 17:50 Temperature 98.3 F 99.0 F Pulse Rate 100 H Pulse Rate [ 103 H Apical] Respiratory 18 18 Rate Blood Pressure 126/60 Blood Pressure 85/52 [Right Arm] O2 Sat by Pulse 100 100 100 Oximetry (%) 09/20/17 09/20/17 09/20/17 18:22 19:06 20:47 Temperature Pulse Rate Pulse Rate [ 97 H 110 H 112 H Apical] Respiratory 18 18 18 Rate Blood Pressure Blood Pressure 120/70 130/53 128/55 [Right Arm] O2 Sat by Pulse 97 98 99 Oximetry (%) 09/20/17 09/20/17 09/20/17 21:30 22:00 22:39 Temperature 98.7 F 98.8 F 98.8 F Pulse Rate 115 H 106 H 120 H Pulse Rate [ Apical] Respiratory 16 13 18 Rate Blood Pressure 120/47 95/41 148/91 Blood Pressure [Right Arm] O2 Sat by Pulse 98 98 Oximetry (%) 09/20/17 09/21/17 09/21/17 23:54 00:00 00:41 Temperature Pulse Rate 108 H 108 H Pulse Rate [ Apical] Respiratory 11 L 18 Rate Blood Pressure 110/47 110/47 Blood Pressure [Right Arm] O2 Sat by Pulse 98 Oximetry (%) 09/21/17 09/21/17 09/21/17 02:00 04:00 05:47 Temperature 98.4 F Pulse Rate 95 H 93 H Pulse Rate [ Apical] Respiratory 18 18 18 Rate Blood Pressure 140/85 114/54 Blood Pressure [Right Arm] O2 Sat by Pulse 99 Oximetry (%) 09/21/17 09/21/17 09/21/17 06:00 08:00 08:11 Temperature 98.7 F Pulse Rate 89 86 Pulse Rate [ Apical] Respiratory 12 12 Rate Blood Pressure 114/51 111/50 Blood Pressure [Right Arm] O2 Sat by Pulse 100 Oximetry (%) 09/21/17 09/21/17 09/21/17 09:00 10:00 12:00 Temperature 98.4 F Pulse Rate 88 86 Pulse Rate [ Apical] Respiratory 12 12 12 Rate Blood Pressure 111/47 131/58 Blood Pressure [Right Arm] O2 Sat by Pulse 100 Oximetry (%) GENERAL: AAOx1 (to self), pleasantly confused, in NAD. HEAD: Normal with no signs of trauma. EYES: Extraocular movements intact, sclera anicteric, conjunctiva clear. No lid lag. ENT: MMM. NECK: Normal range of motion, supple without lymphadenopathy, JVD, or masses. LUNGS: Breath sounds equal, clear to auscultation bilaterally. No wheezes, and no crackles. No accessory muscle use. HEART: Regular rate and rhythm, normal S1 and S2 without murmur, rub or gallop. ABDOMEN: Soft, nontender, not distended, normoactive bowel sounds, no guarding. LOWER EXTREMITIES: Right BKA. Warm, well-perfused. No calf tenderness. No peripheral edema. NEUROLOGICAL: Cranial nerves II-XII grossly intact. Normal speech. PSYCHIATRIC: Cooperative. Good eye contact. Appropriate mood and affect. SKIN: Warm, dry, normal turgor, no rashes or lesions noted. RECTAL: performed by Dr. Matthews with process description writer present: good rectal tone, no hemorrhoids or masses Laboratory Results - last 24 hr 09/20/17 09/20/17 09/20/17 17:11 17:20 17:20 WBC 11.2 H D RBC 3.96 Hgb 10.9 Hct 33.0 MCV 83.3 MCH 27.4 MCHC 32.9 RDW 15.9 H Plt Count 309 MPV 8.6 D Neutrophils % 61.8 Lymphocytes % 27.8 D Monocytes % 8.1 Eosinophils % 1.3 Basophils % 1.0 PT with INR 13.20 H INR 1.17 H Sodium Potassium Chloride Carbon Dioxide Anion Gap BUN Creatinine Creat Clearance w eGFR POC Glucometer Random Glucose Lactic Acid Calcium Phosphorus Magnesium Total Bilirubin AST ALT Alkaline Phosphatase Creatine Kinase Troponin I Total Protein Albumin Urine Color Urine Appearance Urine pH Ur Specific [place] Urine Protein Urine Glucose (UA) Urine Ketones Urine Blood Urine Nitrite Urine Bilirubin Urine Urobilinogen Ur Leukocyte Esterase Ur Random Sodium Ur Random Potassium Ur Random Chloride Urine Creatinine Stool Occult Blood Negative Blood Type Antibody Screen Crossmatch 09/20/17 09/20/17 09/20/17 17:20 17:20 17:20 WBC RBC Hgb Hct MCV MCH MCHC RDW Plt Count MPV Neutrophils % Lymphocytes % Monocytes % Eosinophils % Basophils % PT with INR INR Sodium 138 Potassium 5.3 H Chloride 106 Carbon Dioxide 24 Anion Gap 8 BUN 44 H Creatinine 1.9 H Creat Clearance w eGFR 24.89 POC Glucometer Random Glucose 172 H Lactic Acid 2.7 H* Calcium 9.3 Phosphorus Magnesium Total Bilirubin 0.2 D AST 23 ALT 31 Alkaline Phosphatase 70 Creatine Kinase Troponin I Total Protein 7.2 Albumin 3.6 Urine Color Urine Appearance Urine pH Ur Specific [place] Urine Protein Urine Glucose (UA) Urine Ketones Urine Blood Urine Nitrite Urine Bilirubin Urine Urobilinogen Ur Leukocyte Esterase Ur Random Sodium Ur Random Potassium Ur Random Chloride Urine Creatinine Stool Occult Blood Blood Type O POSITIVE Antibody Screen Negative Crossmatch 09/20/17 09/20/17 09/20/17 17:20 17:30 20:15 WBC 12.0 H RBC 3.29 L Hgb 8.9 L D Hct 27.4 L D MCV 83.3 MCH 27.0 MCHC 32.4 RDW 16.4 H Plt Count 297 MPV 8.9 Neutrophils % 73.6 Lymphocytes % 17.4 D Monocytes % 7.3 Eosinophils % 1.2 Basophils % 0.5 PT with INR INR Sodium Potassium Chloride Carbon Dioxide Anion Gap BUN Creatinine Creat Clearance w eGFR POC Glucometer Random Glucose Lactic Acid Calcium Phosphorus 3.4 Magnesium 2.6 H Total Bilirubin AST ALT Alkaline Phosphatase Creatine Kinase 44 Troponin I 0.02 Total Protein Albumin Urine Color Sanna Urine Appearance Cloudy Urine pH 5.0 Ur Specific [place] 1.024 Urine Protein Negative Urine Glucose (UA) Negative Urine Ketones Trace H Urine Blood Negative Urine Nitrite Negative Urine Bilirubin Negative Urine Urobilinogen Negative Ur Leukocyte Esterase Negative Ur Random Sodium Ur Random Potassium Ur Random Chloride Urine Creatinine Stool Occult Blood Blood Type Antibody Screen Crossmatch 09/20/17 09/20/17 09/21/17 20:15 20:55 00:35 WBC RBC Hgb Hct MCV MCH MCHC RDW Plt Count MPV Neutrophils % Lymphocytes % Monocytes % Eosinophils % Basophils % PT with INR INR Sodium Potassium Chloride Carbon Dioxide Anion Gap BUN Creatinine Creat Clearance w eGFR POC Glucometer [phone] Random Glucose Lactic Acid 2.6 H* Calcium Phosphorus Magnesium Total Bilirubin AST ALT Alkaline Phosphatase Creatine Kinase Troponin I Total Protein Albumin Urine Color Urine Appearance Urine pH Ur Specific [place] Urine Protein Urine Glucose (UA) Urine Ketones Urine Blood Urine Nitrite Urine Bilirubin Urine Urobilinogen Ur Leukocyte Esterase Ur Random Sodium Ur Random Potassium Ur Random Chloride Urine Creatinine Stool Occult Blood Blood Type O POSITIVE Antibody Screen Negative Crossmatch See Detail 09/21/17 09/21/17 09/21/17 00:35 00:35 00:35 WBC 9.6 RBC 3.00 L Hgb 8.1 L Hct 24.9 L MCV 83.0 MCH 27.0 MCHC 32.6 RDW 16.2 H Plt Count 234 D MPV 8.5 Neutrophils % Lymphocytes % Monocytes % Eosinophils % Basophils % PT with INR INR Sodium Potassium Chloride Carbon Dioxide Anion Gap BUN Creatinine Creat Clearance w eGFR POC Glucometer Random Glucose Lactic Acid 1.0 Calcium Phosphorus Magnesium Total Bilirubin AST ALT Alkaline Phosphatase Creatine Kinase Troponin I Total Protein Albumin Urine Color Urine Appearance Urine pH Ur Specific [place] Urine Protein Urine Glucose (UA) Urine Ketones Urine Blood Urine Nitrite Urine Bilirubin Urine Urobilinogen Ur Leukocyte Esterase Ur Random Sodium 44 Ur Random Potassium 60.7 Ur Random Chloride 61 Urine Creatinine 110.0 Stool Occult Blood Blood Type Antibody Screen Crossmatch 09/21/17 09/21/17 09/21/17 00:35 05:40 05:40 WBC RBC Hgb Hct MCV MCH MCHC RDW Plt Count MPV Neutrophils % Lymphocytes % Monocytes % Eosinophils % Basophils % PT with INR 13.40 H INR 1.19 H Sodium 144 144 Potassium 5.2 H 5.0 Chloride 113 H 114 H Carbon Dioxide 21 22 Anion Gap 10 8 BUN 35 H 31 H Creatinine 1.4 H 1.2 H Creat Clearance w eGFR 35.41 42.30 POC Glucometer Random Glucose 138 H 110 H Lactic Acid Calcium 8.0 L 7.7 L Phosphorus 2.5 2.5 Magnesium 2.3 2.2 Total Bilirubin 0.2 0.2 AST 21 20 ALT 24 21 Alkaline Phosphatase 55 53 Creatine Kinase 40 Troponin I 0.15 H Total Protein 5.7 L 5.5 L Albumin 2.9 L 2.8 L Urine Color Urine Appearance Urine pH Ur Specific [place] Urine Protein Urine Glucose (UA) Urine Ketones Urine Blood Urine Nitrite Urine Bilirubin Urine Urobilinogen Ur Leukocyte Esterase Ur Random Sodium Ur Random Potassium Ur Random Chloride Urine Creatinine Stool Occult Blood Blood Type Antibody Screen Crossmatch 09/21/17 09/21/17 05:40 09:00 WBC 8.3 RBC 2.84 L Hgb 7.6 L Hct 23.8 L MCV 83.6 MCH 26.8 MCHC 32.0 RDW 16.0 H Plt Count 220 MPV 7.8 Neutrophils % Lymphocytes % Monocytes % Eosinophils % Basophils % PT with INR INR Sodium Potassium Chloride Carbon Dioxide Anion Gap BUN Creatinine Creat Clearance w eGFR POC Glucometer Random Glucose Lactic Acid Calcium Phosphorus Magnesium Total Bilirubin AST ALT Alkaline Phosphatase Creatine Kinase Cancelled Troponin I Cancelled Total Protein Albumin Urine Color Urine Appearance Urine pH Ur Specific [place] Urine Protein Urine Glucose (UA) Urine Ketones Urine Blood Urine Nitrite Urine Bilirubin Urine Urobilinogen Ur Leukocyte Esterase Ur Random Sodium Ur Random Potassium Ur Random Chloride Urine Creatinine Stool Occult Blood Blood Type Antibody Screen Crossmatch Active Medications Generic Name Dose Route Start Last Admin Trade Name Freq PRN Reason Stop Dose Admin Brimonidine Tartrate 1 drop 09/20/17 22:00 09/21/17 10:38 Alphagan 0.2% - OU 1 drop BID JAIRON Administration Chlorhexidine Gluconate 1 applic 09/20/17 22:00 09/20/17 22:37 Hibiclens For Decolonization - TP 1 applic HS JAIRON Administration Sodium Chloride 1,000 mls @ 83 mls/hr 09/20/17 21:00 09/20/17 23:07 Normal Saline - IV 83 mls/hr ASDIR JAIRON Administration Pantoprazole Sodium 80 mg/ 100 mls @ 10 mls/hr 09/21/17 06:00 09/21/17 06:00 Sodium Chloride IVPB 09/21/17 15:59 10 mls/hr Q10H JAIRON Administration Pantoprazole Sodium 160 mg/ 290 mls @ 14.5 mls/hr 09/21/17 16:00 Dextrose IVPB Q20H JAIRON Insulin Aspart 1 vial 09/21/17 02:00 09/21/17 10:30 Novolog Vial Sliding Scale - SQ Not Given Q4HPO [facility] Protocol Latanoprost 1 drop 09/20/17 22:00 09/20/17 23:08 Xalatan 0.005% Eye Drops - OU 1 drop HS JAIRON Administration Mupirocin 1 applic 09/20/17 22:00 09/20/17 23:09 Bactroban Ointment (For Decolonization) - NS 09/25/17 21:59 Not Given BID JAIRON IMAGIN09/21/17 Ab/Pel CT -> Bibasilar atelectasis and small pleural effusions. Mildly distended gallbladder with small calculi. Moderately distended urinary bladder. No evidence of SBO or acute pathology within abdomen or pelvis. 09/20/17 Ab xray -> gastric distention and generalized abdominal distention noted. 09/20/17 CXR -> no acute pathology ASSESSMENT/PLAN: 87F with PMH of dementia, htn, CAD, DM, PVD s/p Right BKA, presents from [facility] on [facility] with multiple episodes of coffee ground emesis, admitted for suspected upper GIB. # upper GIB with acute blood loss anemia - possible gastric or duodenal ulcer vs gastritis - 1U PRBCs transfusing now - monitor CBC - transfuse prn - continue Protonix IVPB BID - GI (Dr. Mccormick) recs appreciated: Endoscopy planned for tomorrow morning - monitor for overt s/s of bleeding - lactic acidosis resolved # troponinemia - troponins trending up - EKG from this morning reveals no ST segment elevation - pt denies chest pain - continue to trend trops and monitor EKG # TRAY - baseline Cr 1.1 from [place] paperwork - Cr trending down, renal function improving with IVFs - monitor Cr and UOP - Nephrology (Dr. Arredondo) recs appreciated: Maintain off MARILEE/ARB for now # DM - BGMs - Novolog SSI - home medication of Levemir 26U at HS held as pt npo # CAD - hold ASA # htn - hold Norvasc and Lisinopril for now # FEN - Fluids: NS @ 83 ml/hr - Electrolytes: hyperkalemia resolved, continue to monitor - Nutrition: npo for procedure tomorrow - DVT ppx with Left SCD Dispo: We will continue to follow the patient. Thank you for this consultative opportunity. Visit type - Emergency Visit Emergency Visit: Yes ED Registration Date: 09/20/17 Care time: The patient presented to the Emergency Department on the above date and was hospitalized for further evaluation of their emergent condition. - New Patient This patient is new to me today: Yes Date on this admission: 09/21/17 - Critical Care Critical Care patient: Yes Total Critical Care Time (in minutes): 45 Critical Care Statement: The care of this patient involved high complexity decision making to prevent further life threatening deterioration of the patient 's condition and/or to evaluate & treat vital organ system(s) failure or risk of failure.
--- NOTE | 2017-09-21 14:56 | PN ---
Physical Exam: SUBJECTIVE: Patient seen and examined at bedside. No new complaints. No more episodes of vomiting overnight. OBJECTIVE: Vital Signs Period Temp Pulse Resp BP Sys/Cabral Pulse Ox Last 24 Hr 98.3 F-99.0 F 86-120 11-18 85-148/41-91 97-100 GENERAL: The patient is awake, alert, oriented x1 , in no acute distress. HEAD: Normal with no signs of trauma. NECK: Trachea midline, full range of motion, supple. LUNGS: Breath sounds equal, clear to auscultation bilaterally, no wheezes, no crackles, no accessory muscle use. HEART: Regular rate and rhythm, S1, S2 without murmur, rub or gallop. ABDOMEN: Soft, nontender, nondistended, normoactive bowel sounds, no guarding, no rebound, no hepatosplenomegaly, no masses. EXTREMITIES: 2+ pulses, warm, well-perfused, no edema. NEUROLOGICAL: Cranial nerves II through X grossly intact. Normal speech, gait not observed. RECTAL EXAM: Normal tone. No masses felt. No fecal impaction felt. No jarrod blood seen on glove. SKIN: Warm, dry, normal turgor, no rashes or lesions noted Laboratory Results - last 24 hr 09/20/17 09/20/17 09/20/17 17:11 17:20 17:20 WBC 11.2 H D RBC 3.96 Hgb 10.9 Hct 33.0 MCV 83.3 MCH 27.4 MCHC 32.9 RDW 15.9 H Plt Count 309 MPV 8.6 D Neutrophils % 61.8 Lymphocytes % 27.8 D Monocytes % 8.1 Eosinophils % 1.3 Basophils % 1.0 PT with INR 13.20 H INR 1.17 H Sodium Potassium Chloride Carbon Dioxide Anion Gap BUN Creatinine Creat Clearance w eGFR POC Glucometer Random Glucose Lactic Acid Calcium Phosphorus Magnesium Total Bilirubin AST ALT Alkaline Phosphatase Creatine Kinase Troponin I Total Protein Albumin Urine Color Urine Appearance Urine pH Ur Specific [place] Urine Protein Urine Glucose (UA) Urine Ketones Urine Blood Urine Nitrite Urine Bilirubin Urine Urobilinogen Ur Leukocyte Esterase Ur Random Sodium Ur Random Potassium Ur Random Chloride Urine Creatinine Stool Occult Blood Negative Blood Type Antibody Screen Crossmatch 09/20/17 09/20/17 09/20/17 17:20 17:20 17:20 WBC RBC Hgb Hct MCV MCH MCHC RDW Plt Count MPV Neutrophils % Lymphocytes % Monocytes % Eosinophils % Basophils % PT with INR INR Sodium 138 Potassium 5.3 H Chloride 106 Carbon Dioxide 24 Anion Gap 8 BUN 44 H Creatinine 1.9 H Creat Clearance w eGFR 24.89 POC Glucometer Random Glucose 172 H Lactic Acid 2.7 H* Calcium 9.3 Phosphorus Magnesium Total Bilirubin 0.2 D AST 23 ALT 31 Alkaline Phosphatase 70 Creatine Kinase Troponin I Total Protein 7.2 Albumin 3.6 Urine Color Urine Appearance Urine pH Ur Specific [place] Urine Protein Urine Glucose (UA) Urine Ketones Urine Blood Urine Nitrite Urine Bilirubin Urine Urobilinogen Ur Leukocyte Esterase Ur Random Sodium Ur Random Potassium Ur Random Chloride Urine Creatinine Stool Occult Blood Blood Type O POSITIVE Antibody Screen Negative Crossmatch 09/20/17 09/20/17 09/20/17 17:20 17:30 20:15 WBC 12.0 H RBC 3.29 L Hgb 8.9 L D Hct 27.4 L D MCV 83.3 MCH 27.0 MCHC 32.4 RDW 16.4 H Plt Count 297 MPV 8.9 Neutrophils % 73.6 Lymphocytes % 17.4 D Monocytes % 7.3 Eosinophils % 1.2 Basophils % 0.5 PT with INR INR Sodium Potassium Chloride Carbon Dioxide Anion Gap BUN Creatinine Creat Clearance w eGFR POC Glucometer Random Glucose Lactic Acid Calcium Phosphorus 3.4 Magnesium 2.6 H Total Bilirubin AST ALT Alkaline Phosphatase Creatine Kinase 44 Troponin I 0.02 Total Protein Albumin Urine Color [place]anna Urine Appearance Cloudy Urine pH 5.0 Ur Specific [place] 1.024 Urine Protein Negative Urine Glucose (UA) Negative Urine Ketones Trace H Urine Blood Negative Urine Nitrite Negative Urine Bilirubin Negative Urine Urobilinogen Negative Ur Leukocyte Esterase Negative Ur Random Sodium Ur Random Potassium Ur Random Chloride Urine Creatinine Stool Occult Blood Blood Type Antibody Screen Crossmatch 09/20/17 09/20/17 09/21/17 20:15 20:55 00:35 WBC RBC Hgb Hct MCV MCH MCHC RDW Plt Count MPV Neutrophils % Lymphocytes % Monocytes % Eosinophils % Basophils % PT with INR INR Sodium Potassium Chloride Carbon Dioxide Anion Gap BUN Creatinine Creat Clearance w eGFR POC Glucometer [phone] Random Glucose Lactic Acid 2.6 H* Calcium Phosphorus Magnesium Total Bilirubin AST ALT Alkaline Phosphatase Creatine Kinase Troponin I Total Protein Albumin Urine Color Urine Appearance Urine pH Ur Specific [place] Urine Protein Urine Glucose (UA) Urine Ketones Urine Blood Urine Nitrite Urine Bilirubin Urine Urobilinogen Ur Leukocyte Esterase Ur Random Sodium Ur Random Potassium Ur Random Chloride Urine Creatinine Stool Occult Blood Blood Type O POSITIVE Antibody Screen Negative Crossmatch See Detail 09/21/17 09/21/17 09/21/17 00:35 00:35 00:35 WBC 9.6 RBC 3.00 L Hgb 8.1 L Hct 24.9 L MCV 83.0 MCH 27.0 MCHC 32.6 RDW 16.2 H Plt Count 234 D MPV 8.5 Neutrophils % Lymphocytes % Monocytes % Eosinophils % Basophils % PT with INR INR Sodium Potassium Chloride Carbon Dioxide Anion Gap BUN Creatinine Creat Clearance w eGFR POC Glucometer Random Glucose Lactic Acid 1.0 Calcium Phosphorus Magnesium Total Bilirubin AST ALT Alkaline Phosphatase Creatine Kinase Troponin I Total Protein Albumin Urine Color Urine Appearance Urine pH Ur Specific [place] Urine Protein Urine Glucose (UA) Urine Ketones Urine Blood Urine Nitrite Urine Bilirubin Urine Urobilinogen Ur Leukocyte Esterase Ur Random Sodium 44 Ur Random Potassium 60.7 Ur Random Chloride 61 Urine Creatinine 110.0 Stool Occult Blood Blood Type Antibody Screen Crossmatch 09/21/17 09/21/17 09/21/17 00:35 05:40 05:40 WBC RBC Hgb Hct MCV MCH MCHC RDW Plt Count MPV Neutrophils % Lymphocytes % Monocytes % Eosinophils % Basophils % PT with INR 13.40 H INR 1.19 H Sodium 144 144 Potassium 5.2 H 5.0 Chloride 113 H 114 H Carbon Dioxide 21 22 Anion Gap 10 8 BUN 35 H 31 H Creatinine 1.4 H 1.2 H Creat Clearance w eGFR 35.41 42.30 POC Glucometer Random Glucose 138 H 110 H Lactic Acid Calcium 8.0 L 7.7 L Phosphorus 2.5 2.5 Magnesium 2.3 2.2 Total Bilirubin 0.2 0.2 AST 21 20 ALT 24 21 Alkaline Phosphatase 55 53 Creatine Kinase 40 Troponin I 0.15 H Total Protein 5.7 L 5.5 L Albumin 2.9 L 2.8 L Urine Color Urine Appearance Urine pH Ur Specific [place] Urine Protein Urine Glucose (UA) Urine Ketones Urine Blood Urine Nitrite Urine Bilirubin Urine Urobilinogen Ur Leukocyte Esterase Ur Random Sodium Ur Random Potassium Ur Random Chloride Urine Creatinine Stool Occult Blood Blood Type Antibody Screen Crossmatch 09/21/17 09/21/17 05:40 09:00 WBC 8.3 RBC 2.84 L Hgb 7.6 L Hct 23.8 L MCV 83.6 MCH 26.8 MCHC 32.0 RDW 16.0 H Plt Count 220 MPV 7.8 Neutrophils % Lymphocytes % Monocytes % Eosinophils % Basophils % PT with INR INR Sodium Potassium Chloride Carbon Dioxide Anion Gap BUN Creatinine Creat Clearance w eGFR POC Glucometer Random Glucose Lactic Acid Calcium Phosphorus Magnesium Total Bilirubin AST ALT Alkaline Phosphatase Creatine Kinase Cancelled Troponin I Cancelled Total Protein Albumin Urine Color Urine Appearance Urine pH Ur Specific [place] Urine Protein Urine Glucose (UA) Urine Ketones Urine Blood Urine Nitrite Urine Bilirubin Urine Urobilinogen Ur Leukocyte Esterase Ur Random Sodium Ur Random Potassium Ur Random Chloride Urine Creatinine Stool Occult Blood Blood Type Antibody Screen Crossmatch Active Medications Generic Name Dose Route Start Last Admin Trade Name Freq PRN Reason Stop Dose Admin Brimonidine Tartrate 1 drop 09/20/17 22:00 09/21/17 10:38 Alphagan 0.2% - OU 1 drop BID JAIRON Administration Chlorhexidine Gluconate 1 applic 09/20/17 22:00 09/20/17 22:37 Hibiclens For Decolonization - TP 1 applic HS JAIRON Administration Sodium Chloride 1,000 mls @ 83 mls/hr 09/20/17 21:00 09/20/17 23:07 Normal Saline - IV 83 mls/hr ASDIR JAIRON Administration Pantoprazole Sodium 80 mg/ 100 mls @ 10 mls/hr 09/21/17 06:00 09/21/17 06:00 Sodium Chloride IVPB 09/21/17 15:59 10 mls/hr Q10H JAIRON Administration Pantoprazole Sodium 160 mg/ 290 mls @ 14.5 mls/hr 09/21/17 16:00 Dextrose IVPB Q20H JAIRON Insulin Aspart 1 vial 09/21/17 02:00 09/21/17 10:30 Novolog Vial Sliding Scale - SQ Not Given Q4HPO [facility] Protocol Latanoprost 1 drop 09/20/17 22:00 09/20/17 23:08 Xalatan 0.005% Eye Drops - OU 1 drop HS JAIRON Administration Mupirocin 1 applic 09/20/17 22:00 09/20/17 23:09 Bactroban Ointment (For Decolonization) - NS 09/25/17 21:59 Not Given BID JAIRON ASSESSMENT/PLAN: 87 yo F with a PMHx HTN, DM, PVD, s/p R BKA, CAD, dementia, presented from [facility] on [facility] with coffee ground emesis and abdominal distention. #Upper GI bleed and abdominal distension -Hb dropping from 8.1 -> 7.6 -will transfuse 2u PRBC as patient's Hb dropping -f/u RPT CBC after second unit -f/u CT Abd w/ Oral contrast -CBC q6h -Aspirin held -F/u GI recommendations -Protonix 40 IV BID -NPO. For EGD in AM #SIRS- resolved -Met criteria on admission with tachycardia, elevated wbc -Has since resolved. -f/u BCX, UCX #TRAY- resolved -baseline cr. 1.1 from [place] paperwork; Cr. this AM 1.2 -f/u Urine lytes -NS @83 -avoid nephrotoxins -Nephro consulted #HTN/CAD -holding antihypertensives and ASA while the patient is bleeding #DM -BGM -ISS -holding home Levemir 26U HS #Hyperkalemia/Magnesium- resolved -K+ 5.0, Magnesium 2.2 #FEN -NS @ 83 -Monitor lytes, replete PRN -NPO #PPX -SCDs while patient bleeding -Protonix 40 IVPB BID #Dispo -admit to ICU Visit type - Emergency Visit Emergency Visit: Yes ED Registration Date: 09/20/17 Care time: The patient presented to the Emergency Department on the above date and was hospitalized for further evaluation of their emergent condition. - New Patient This patient is new to me today: Yes Date on this admission: 09/21/17 - Critical Care Critical Care patient: Yes Total Critical Care Time (in minutes): 40 Critical Care Statement: The care of this patient involved high complexity decision making to prevent further life threatening deterioration of the patient 's condition and/or to evaluate & treat vital organ system(s) failure or risk of failure.
[2017-09-21] MEDS ORDERED: PANTOPRAZOLE SODIUM 160 MG in DEXTROSE 5%-WATER - 290 ML IVPB SCH ×2 (16:00→16:45)
--- NOTE | 2017-09-21 17:16 | PN ---
Progress Note (short form) - Note Progress Note: Troponin of 4.18 appreciated, up from 0.15 this am. MD went to see pt who was found resting comfortably in bed. Pt denies chest pain, palpitations, SOB, and any other symptoms. Vitals: HR 92 BP 123/70 RR 15 O2 100 on NC Exam: General: resting comfortably in bed in NAD CV: RRR, no murmurs Resp: CTAB Abd: soft, tender in suprapubic region Extremities: no edema A&P: likely demand ischemia given acute anemia and tachycardia -repeat trop ordered in 6 hours. f/u -cardiology consult placed, Dr. Armando. -continue to monitor vitals and pt's symptoms At 5:20pm, Spoke with Dr. Barragan ([employer] consultant for Dr. Armando's group) who said to give statin, metoprolol 12.5, and to obtain echo in am. He will come in bradley morning to see patient.
[2017-09-21] MEDS ORDERED: ATORVASTATIN CA 80 MG TABLET (FP) PO ONE (17:45)
[2017-09-21] MEDS: metoPROLOL SUCCINATE 25 MG TAB.SR.24H (FP) PO SCH (19:44)
--- NOTE | 2017-09-21 19:50 | EKG ---
Test Reason : Blood Pressure : / mmHG Vent. Rate : 077 BPM Atrial Rate : 077 BPM P-R Int : 122 ms QRS Dur : 108 ms QT Int : 412 ms P-R-T Axes : 043 021 122 degrees QTc Int : 466 ms NORMAL SINUS RHYTHM VENTRICULAR PRE-EXCITATION, WPW PATTERN TYPE B ABNORMAL ECG WHEN COMPARED WITH ECG OF 20-SEP-2017 16:52, [id number] IS NOW PRESENT Confirmed by ZULMA SHUKLA, RESHMA ([id number]) on 09/21/2017 7:49:46 PM Referred By: SNEHAL GOMES DR Confirmed By:RESHMA MAYA MD
[2017-09-21 21:40] LABS: BASO % 0.5 % (0-2.0); EOS % 5.9 % (0-4.5); HEMATOCRIT 34.2 % (32.4-45.2); HEMOGLOBIN 11.7 GM/dL (10.7-15.3); LYMPH % 27.9 % (8-40); MCH 28.5 pg (25.7-33.7); MCHC 34.4 g/dl (32.0-36.0); MEAN PLT VOLUME 8.4 fl (7.5-11.1); MONO % 7.4 % (3.8-10.2); NEUT % 58.3 % (42.8-82.8); PLATELET COUNT 206 K/MM3 (134-434); RBC 4.12 M/mm3 (3.60-5.2); RDW 14.9 % (11.6-15.6); WHITE BLOOD COUNT 8.4 K/mm3 (4.0-10.0)
[2017-09-21] MEDS: PANTOPRAZOLE SODIUM 40 MG VIAL IVPB SCH (22:31)
[2017-09-21] MEDS: LATANOPROST 0.005% OPHTH SOLN 2.5ML BOTTLE OU SCH (22:31)
[2017-09-21] MEDS: CHLORHEXIDINE GLUCONATE 4% CLEANSER FOR DECOLONIZATION TP SCH (23:17)
[2017-09-22] MEDS ORDERED: HEMOQUE TEST 1 EACH EACH ONE (01:18)
[2017-09-22] MEDS: INSULIN SLIDING SCALE (NOVOLOG) 1 VIAL SQ SCH ×6 (01:25→22:06)
[2017-09-22 06:33] LABS: HEMOGLOBIN 12.1 GM/dL (10.7-15.3); MCH 28.7 pg (25.7-33.7); MCHC 34.5 g/dl (32.0-36.0); MEAN CELL VOLUME 83.2 fl (80-96); MEAN PLT VOLUME 8.7 fl (7.5-11.1); PLATELET COUNT 228 K/MM3 (134-434); RBC 4.21 M/mm3 (3.60-5.2); RDW 14.7 % (11.6-15.6); WHITE BLOOD COUNT 9.4 K/mm3 (4.0-10.0)
[2017-09-22 06:50] LABS: INR 1.19 (0.82-1.09); PROTHROMBIN TIME (PATIENT) 13.5 SEC (9.7-13.0)
[2017-09-22 06:53] LABS: ACTIVATED PTT 37.4 SECONDS (26.9-34.4)
[2017-09-22 07:04] LABS: ANION GAP 11 (8-16); BLOOD UREA NITROGEN 15 mg/dL (7-18); CALCIUM 8.1 mg/dL (8.5-10.1); CHLORIDE 109 mmol/L (98-107); CO2 22 mmol/L (21-32); CREATININE 0.8 mg/dL (0.55-1.02); GLUCOSE,RANDOM 90 mg/dL (74-106); SODIUM 142 mmol/L (136-145)
[2017-09-22 07:45] LABS: POTASSIUM 4.6 mmol/L (3.5-5.1)
--- NOTE | 2017-09-22 07:51 | PN ---
Physical Exam: SUBJECTIVE: Patient seen and examined at bedside. No new complaints. No events on tele. No episodes of bleeding overnight. Patient leaking troponins yesterday afternoon and overnight. OBJECTIVE: Vital Signs Period Temp Pulse Resp BP Sys/Cabral Pulse Ox Last 24 Hr 98.2 F-98.6 F 77-92 12-18 111-156/47-71 95-100 GENERAL: The patient is awake, alert, oriented x1 , in no acute distress. HEAD: Normal with no signs of trauma. NECK: Trachea midline, full range of motion, supple. LUNGS: Breath sounds equal, clear to auscultation bilaterally, no wheezes, no crackles, no accessory muscle use. HEART: Regular rate and rhythm, S1, S2 without murmur, rub or gallop. ABDOMEN: Soft, nontender, nondistended, normoactive bowel sounds, no guarding, no rebound, no hepatosplenomegaly, no masses. EXTREMITIES: 2+ pulses, warm, well-perfused, no edema. NEUROLOGICAL: Cranial nerves II through X grossly intact. Normal speech, gait not observed. SKIN: Warm, dry, normal turgor, no rashes or lesions noted Laboratory Results - last 24 hr 09/21/17 09/21/17 09/21/17 00:35 00:35 00:35 WBC RBC Hgb Hct MCV MCH MCHC RDW Plt Count MPV Neutrophils % Lymphocytes % Monocytes % Eosinophils % Basophils % PT with INR INR PTT (Actin FS) Sodium 144 Potassium 5.2 H Chloride 113 H Carbon Dioxide 21 Anion Gap 10 BUN 35 H Creatinine 1.4 H Creat Clearance w eGFR 35.41 Random Glucose 138 H Calcium 8.0 L Phosphorus 2.5 Magnesium 2.3 Total Bilirubin 0.2 AST 21 ALT 24 Alkaline Phosphatase 55 Creatine Kinase 40 Troponin I 0.15 H Total Protein 5.7 L Albumin 2.9 L Ur Random Sodium 44 Ur Random Potassium 60.7 Ur Random Chloride 61 Urine Creatinine 110.0 Blood Type O POSITIVE Antibody Screen Negative Crossmatch See Detail 09/21/17 09/21/17 09/21/17 05:40 05:40 09:00 WBC 8.3 RBC 2.84 L Hgb 7.6 L Hct 23.8 L MCV 83.6 MCH 26.8 MCHC 32.0 RDW 16.0 H Plt Count 220 MPV 7.8 Neutrophils % Lymphocytes % Monocytes % Eosinophils % Basophils % PT with INR INR PTT (Actin FS) Sodium 144 Potassium 5.0 Chloride 114 H Carbon Dioxide 22 Anion Gap 8 BUN 31 H Creatinine 1.2 H Creat Clearance w eGFR 42.30 Random Glucose 110 H Calcium 7.7 L Phosphorus 2.5 Magnesium 2.2 Total Bilirubin 0.2 AST 20 ALT 21 Alkaline Phosphatase 53 Creatine Kinase Cancelled Troponin I Cancelled Total Protein 5.5 L Albumin 2.8 L Ur Random Sodium Ur Random Potassium Ur Random Chloride Urine Creatinine Blood Type Antibody Screen Crossmatch 09/21/17 09/21/17 09/21/17 14:30 21:00 21:00 WBC 8.4 RBC 4.12 D Hgb 11.7 D Hct 34.2 D MCV 83.0 MCH 28.5 MCHC 34.4 RDW 14.9 Plt Count 206 MPV 8.4 Neutrophils % 58.3 D Lymphocytes % 27.9 D Monocytes % 7.4 Eosinophils % 5.9 H D Basophils % 0.5 PT with INR INR PTT (Actin FS) Sodium Potassium Chloride Carbon Dioxide Anion Gap BUN Creatinine Creat Clearance w eGFR Random Glucose Calcium Phosphorus Magnesium Total Bilirubin AST ALT Alkaline Phosphatase Creatine Kinase Troponin I 4.18 H* 6.16 H* Total Protein Albumin Ur Random Sodium Ur Random Potassium Ur Random Chloride Urine Creatinine Blood Type Antibody Screen Crossmatch 09/22/17 09/22/17 09/22/17 05:52 05:52 05:52 WBC 9.4 RBC 4.21 Hgb 12.1 Hct 35.0 MCV 83.2 MCH 28.7 MCHC 34.5 RDW 14.7 Plt Count 228 MPV 8.7 Neutrophils % Lymphocytes % Monocytes % Eosinophils % Basophils % PT with INR 13.50 H INR 1.19 H PTT (Actin FS) 37.4 H Sodium 142 Potassium 4.6 Chloride 109 H Carbon Dioxide 22 Anion Gap 11 BUN 15 Creatinine 0.8 Creat Clearance w eGFR Random Glucose 90 Calcium 8.1 L Phosphorus Magnesium Total Bilirubin AST ALT Alkaline Phosphatase Creatine Kinase Troponin I Total Protein Albumin Ur Random Sodium Ur Random Potassium Ur Random Chloride Urine Creatinine Blood Type Antibody Screen Crossmatch 09/22/17 05:52 WBC RBC Hgb Hct MCV MCH MCHC RDW Plt Count MPV Neutrophils % Lymphocytes % Monocytes % Eosinophils % Basophils % PT with INR INR PTT (Actin FS) Sodium Potassium Chloride Carbon Dioxide Anion Gap BUN Creatinine Creat Clearance w eGFR Random Glucose Calcium Phosphorus Magnesium Total Bilirubin AST ALT Alkaline Phosphatase Creatine Kinase Troponin I 5.92 H* Total Protein Albumin Ur Random Sodium Ur Random Potassium Ur Random Chloride Urine Creatinine Blood Type Antibody Screen Crossmatch Active Medications Generic Name Dose Route Start Last Admin Trade Name Freq PRN Reason Stop Dose Admin Brimonidine Tartrate 1 drop 09/20/17 22:00 09/21/17 22:30 Alphagan 0.2% - OU 1 drop BID JAIRON Administration Chlorhexidine Gluconate 1 applic 09/20/17 22:00 09/21/17 23:17 Hibiclens For Decolonization - TP 1 applic HS JAIRON Administration Sodium Chloride 1,000 mls @ 83 mls/hr 09/20/17 21:00 09/21/17 21:00 Normal Saline - IV 83 mls/hr ASDIR JAIRON Administration Insulin Aspart 1 vial 09/21/17 02:00 09/22/17 06:05 Novolog Vial Sliding Scale - SQ Not Given Q4HPO JAIRON Protocol Latanoprost 1 drop 09/20/17 22:00 09/21/17 22:31 Xalatan 0.005% Eye Drops - OU 1 drop HS JAIRON Administration Metoprolol Succinate 12.5 mg 09/21/17 17:45 09/21/17 19:44 Toprol Xl - PO 12.5 mg DAILY JAIRON Administration Mupirocin 1 applic 09/20/17 22:00 09/21/17 23:17 Bactroban Ointment (For Decolonization) - NS 09/25/17 21:59 1 applic BID JAIRON Administration Pantoprazole Sodium 40 mg 09/21/17 22:00 09/21/17 22:31 Protonix Iv IVPB 40 mg BID JAIRON Administration ASSESSMENT/PLAN: The patient is an 87 yo F with a PMHx HTN, DM, PVD, s/p R BKA, CAD, dementia who is admistted to the ICU for suspected UGIB #Troponemia 2/2 demand ischemia -Tropes .2 -> .15 -> 4.18 -> 6.16 -> 5.92 -EKG w/o acute ischemic changes -no events on tele -EGD cancelled today -Cardiology onboard; patient cleared for procedures. -AC contraindicated 2/2 bleeding; per cardiology, can place the patient on Plavix after bleeding r/o #Upper GI bleed and abdominal distension -Hb stable at 12,1 this AM -will transfuse 2u PRBC as patient's Hb dropping -f/u RPT CBC after second unit -f/u CT Abd w/ Oral contrast -CBC q6h -Aspirin held -F/u GI recommendations -Protonix 40 IV BID -NPO. For possible EGD in AM #SIRS- resolved -f/u BCX, UCX #TRAY- resolved -[facility]1 [facility]; Cr. this AM 1.4 -NS @83 -avoid nephrotoxins -Nephro consulted #HTN/CAD -restarted lisinopril 10mg daily today #DM -BGM -ISS -holding home Levemir 26U HS #Hyperkalemia/Magnesium- resolved #FEN -NS @ 83 -Monitor lytes, replete PRN -NPO #PPX -SCDs while patient bleeding -Protonix 40 IVPB BID #Dispo -admit to ICU Visit type - Emergency Visit Emergency Visit: Yes ED Registration Date: 09/20/17 Care time: The patient presented to the Emergency Department on the above date and was hospitalized for further evaluation of their emergent condition. - New Patient This patient is new to me today: No - Critical Care Critical Care patient: Yes Total Critical Care Time (in minutes): 63 Critical Care Statement: The care of this patient involved high complexity decision making to prevent further life threatening deterioration of the patient 's condition and/or to evaluate & treat vital organ system(s) failure or risk of failure.
[2017-09-22] MEDS ORDERED: SODIUM CHLORIDE 1,000 ML IV SCH (09:33)
[2017-09-22] MEDS: metoPROLOL SUCCINATE 25 MG TAB.SR.24H (FP) PO SCH (10:28)
[2017-09-22] MEDS: MUPIROCIN 2% TOPICAL OINTMENT FOR DECOLONIZATION NS SCH (10:30)
[2017-09-22] MEDS: BRIMONIDINE TARTRATE 0.2% OPHTHALMIC 5 ML BOTTLE OU SCH ×2 (10:30→21:55)
[2017-09-22] MEDS: PANTOPRAZOLE SODIUM 40 MG VIAL IVPB SCH (10:43)
[2017-09-22] MEDS ORDERED: LISINOPRIL 20 MG TABLET (FP) PO SCH (10:45)
--- NOTE | 2017-09-22 11:27 | EKG ---
Test Reason : Blood Pressure : / mmHG Vent. Rate : 087 BPM Atrial Rate : 087 BPM P-R Int : 122 ms QRS Dur : 098 ms QT Int : 398 ms P-R-T Axes : 045 016 145 degrees QTc Int : 478 ms NORMAL SINUS RHYTHM NONSPECIFIC ST AND T WAVE ABNORMALITY ABNORMAL ECG WHEN COMPARED WITH ECG OF 21-SEP-2017 14:08, [id number] IS NO LONGER PRESENT Confirmed by CHARLIE SHUKLA, STEVEN ([id number]) on 09/22/2017 11:27:32 AM Referred By: Confirmed By:STEVEN GUERRA MD
[2017-09-22 11:46] LABS: CHOLESTEROL 145 mg/dL (50-200); HDL CHOLESTEROL 29 mg/dL (40-60); TRIGLYCERIDES 147 mg/dL (35-160)
--- NOTE | 2017-09-22 12:01 | PN ---
Teaching Attending Note Name of Resident: Rudy Matthews ATTENDING PHYSICIAN STATEMENT I saw and evaluated the patient. I reviewed the resident's note and discussed the case with the resident. I agree with the resident's findings and plan as documented. SUBJECTIVE: No fever or chills, denies CP. no SOB. No events last night OBJECTIVE: NAD. dry MM . CV: RRR, 2/6 SM at RUSB. Lungs: CTAB Ext: no edema or erythema. R BKA with clean normal stump with no skin breakdown ASSESSMENT AND PLAN: 87 y/o lady with h/o dementia , CAD, PVD, R BKA, DM , HTN, And SVt who [place] with coffee ground emesis . 1- Upper GI bleed. with acute blood loss anemia. S/P 2 units of RBCs - will cancel EGD today pending Card eval. - cont PPI - try clears . - hold ASA - increase IVF - CT scan reviewed. no evidence of obstruction or stomach distension 2- NSTEMI: EKGs reviewed. - cont BB . HR in 70s - BP is above goal in 140s /80s. will introduce lower dose of lisinopril - unfortunately , will not be able to use asa pending EGD results - cont tele - LDL 99 , add lipitor 40 mg HS - - card eval pending 3- TRAY: prerenal azoemia , resolved . monitor on ACEI 4- h/o HTN: resume lisinopril at lower dose given he rMI. cont BB as above 5- H/o PVD: hold ASA Tx to tele .
--- NOTE | 2017-09-22 12:35 | PN ---
Teaching Attending Note Name of Resident: Becka Lewis ATTENDING PHYSICIAN STATEMENT I saw and evaluated the patient. I reviewed the resident's note and discussed the case with the resident. I agree with the resident's findings and plan as documented. SUBJECTIVE: Patient seen and examined in the ICU. Awake and alert. Mildly confused. Denies CP or SOB. No nausea or vomiting. No occult bleeding. Intake & Output 09/19/17 09/20/17 09/21/17 09/22/17 23:59 23:59 23:59 23:59 Intake Total 2968 996 Output Total 1000 900 Balance 1968 96 Weight 126 lb 126 lb 1.6 oz 131 lb 3.2 oz Last Vital Signs Temp Pulse Resp BP Pulse Ox 98.4 F 62 15 119/50 95 09/22/17 10:00 09/22/17 12:00 09/22/17 12:00 09/22/17 12:00 09/22/17 09:34 Active Medications Atorvastatin Calcium (Lipitor -) 40 mg PO HS [facility] Brimonidine Tartrate (Alphagan 0.2% -) 1 drop OU BID [facility] Last Admin: 09/22/17 10:30 Dose: 1 drop Chlorhexidine Gluconate (Hibiclens For Decolonization -) 1 applic TP HS [facility] Last Admin: 09/21/17 23:17 Dose: 1 applic Sodium Chloride (Normal Saline -) 1,000 mls @ 100 mls/hr IV ASDIR [facility] Last Admin: 09/22/17 10:32 Dose: 100 mls/hr Insulin Aspart (Novolog Vial Sliding Scale -) 1 vial SQ Q4H [facility] PRN Reason: Protocol Last Admin: 09/22/17 10:00 Dose: Not Given Latanoprost (Xalatan 0.005% Eye Drops -) 1 drop OU HS [facility] Last Admin: 09/21/17 22:31 Dose: 1 drop Lisinopril (Prinivil) 20 mg PO DAILY [facility] Last Admin: 09/22/17 10:48 Dose: 20 mg Metoprolol Succinate (Toprol Xl -) 12.5 mg PO DAILY [facility] Last Admin: 09/22/17 10:28 Dose: 12.5 mg Mupirocin (Bactroban Ointment (For Decolonization) -) 1 applic NS BID [facility] Stop: 09/25/17 21:59 Last Admin: 09/22/17 10:30 Dose: 1 applic Pantoprazole Sodium (Protonix Iv) 40 mg IVPB BID JAIRON Last Admin: 09/22/17 10:43 Dose: 40 mg Gen: NAD at rest Heart: RRR Lung: Clear Abd: soft, NT, ND Ext: Right BKA Laboratory Results - last 24 hr 09/21/17 09/21/17 09/21/17 00:35 00:35 00:50 WBC RBC Hgb Hct MCV MCH MCHC RDW Plt Count MPV Neutrophils % Lymphocytes % Monocytes % Eosinophils % Basophils % PT with INR INR PTT (Actin FS) Sodium Potassium Chloride Carbon Dioxide Anion Gap BUN Creatinine POC Glucometer 168.60194 Random Glucose Calcium Creatine Kinase 40 Troponin I 0.15 H Triglycerides Cholesterol Total LDL Cholesterol HDL Cholesterol Blood Type O POSITIVE Antibody Screen Negative Crossmatch See Detail 09/21/17 09/21/17 09/21/17 10:47 13:55 14:30 WBC RBC Hgb Hct MCV MCH MCHC RDW Plt Count MPV Neutrophils % Lymphocytes % Monocytes % Eosinophils % Basophils % PT with INR INR PTT (Actin FS) Sodium Potassium Chloride Carbon Dioxide Anion Gap BUN Creatinine POC Glucometer 121.70405 134.93180 Random Glucose Calcium Creatine Kinase Troponin I 4.18 H* Triglycerides Cholesterol Total LDL Cholesterol HDL Cholesterol Blood Type Antibody Screen Crossmatch 09/21/17 09/21/17 09/21/17 19:11 21:00 21:00 WBC 8.4 RBC 4.12 D Hgb 11.7 D Hct 34.2 D MCV 83.0 MCH 28.5 MCHC 34.4 RDW 14.9 Plt Count 206 MPV 8.4 Neutrophils % 58.3 D Lymphocytes % 27.9 D Monocytes % 7.4 Eosinophils % 5.9 H D Basophils % 0.5 PT with INR INR PTT (Actin FS) Sodium Potassium Chloride Carbon Dioxide Anion Gap BUN Creatinine POC Glucometer 104.55348 Random Glucose Calcium Creatine Kinase Troponin I 6.16 H* Triglycerides Cholesterol Total LDL Cholesterol HDL Cholesterol Blood Type Antibody Screen Crossmatch 09/21/17 09/22/17 09/22/17 23:15 01:23 05:52 WBC 9.4 RBC 4.21 Hgb 12.1 Hct 35.0 MCV 83.2 MCH 28.7 MCHC 34.5 RDW 14.7 Plt Count 228 MPV 8.7 Neutrophils % Lymphocytes % Monocytes % Eosinophils % Basophils % PT with INR INR PTT (Actin FS) Sodium Potassium Chloride Carbon Dioxide Anion Gap BUN Creatinine POC Glucometer 108.75551 104.79849 Random Glucose Calcium Creatine Kinase Troponin I Triglycerides Cholesterol Total LDL Cholesterol HDL Cholesterol Blood Type Antibody Screen Crossmatch 09/22/17 09/22/17 09/22/17 05:52 05:52 05:52 WBC RBC Hgb Hct MCV MCH MCHC RDW Plt Count MPV Neutrophils % Lymphocytes % Monocytes % Eosinophils % Basophils % PT with INR 13.50 H INR 1.19 H PTT (Actin FS) 37.4 H Sodium 142 Potassium 4.6 Chloride 109 H Carbon Dioxide 22 Anion Gap 11 BUN 15 Creatinine 0.8 POC Glucometer Random Glucose 90 Calcium 8.1 L Creatine Kinase Troponin I 5.92 H* Triglycerides 147 Cholesterol 145 Total LDL Cholesterol 99 HDL Cholesterol 29 L Blood Type Antibody Screen Crossmatch 09/22/17 09/22/17 09/22/17 05:52 06:00 09:57 WBC RBC Hgb Hct MCV MCH MCHC RDW Plt Count MPV Neutrophils % Lymphocytes % Monocytes % Eosinophils % Basophils % PT with INR INR PTT (Actin FS) Sodium Potassium Chloride Carbon Dioxide Anion Gap BUN Creatinine POC Glucometer 110.65842 112.06957 Random Glucose Calcium Creatine Kinase Troponin I Triglycerides Cancelled Cholesterol Cancelled Total LDL Cholesterol Cancelled HDL Cholesterol Cancelled Blood Type Antibody Screen Crossmatch ASSESSMENT AND PLAN: GI Bleed Acute Blood Loss Anemia (?) GI Mass NSTEMI Lactic Acidosis Acute Kidney Injury HTN DM Dementia - monitor CBC, coags - Normal transfusion thresholds - continue protonix - Endoscopic workup on hold - ensure large bore peripheral access - mechanical DVT prophylaxis - Cardiology evaluation - Cardiac Telemetry monitoring - DNR/DNI Dr Kapoor Critical care time spent in reviewing chart, evaluating patient and formulating plan 36 min
--- NOTE | 2017-09-22 12:48 | PN ---
Progress Note, Physician History of Present Illness: No stigmata of active gastrointestinal bleed. High troponins this morning. EGD canceled. - Current Medication List Current Medications: Active Medications Atorvastatin Calcium (Lipitor -) 40 mg PO HS [facility] Brimonidine Tartrate (Alphagan 0.2% -) 1 drop OU BID [facility] Last Admin: 09/22/17 10:30 Dose: 1 drop Chlorhexidine Gluconate (Hibiclens For Decolonization -) 1 applic TP HS [facility] Last Admin: 09/21/17 23:17 Dose: 1 applic Sodium Chloride (Normal Saline -) 1,000 mls @ 100 mls/hr IV ASDIR [facility] Last Admin: 09/22/17 10:32 Dose: 100 mls/hr Insulin Aspart (Novolog Vial Sliding Scale -) 1 vial SQ Q4H [facility] PRN Reason: Protocol Last Admin: 09/22/17 10:00 Dose: Not Given Latanoprost (Xalatan 0.005% Eye Drops -) 1 drop OU [facility] Last Admin: 09/21/17 22:31 Dose: 1 drop Lisinopril (Prinivil) 20 mg PO DAILY [facility] Last Admin: 09/22/17 10:48 Dose: 20 mg Metoprolol Succinate (Toprol Xl -) 12.5 mg PO DAILY [facility] Last Admin: 09/22/17 10:28 Dose: 12.5 mg Mupirocin (Bactroban Ointment (For Decolonization) -) 1 applic NS BID [facility] Stop: 09/25/17 21:59 Last Admin: 09/22/17 10:30 Dose: 1 applic Pantoprazole Sodium (Protonix Iv) 40 mg IVPB BID [facility] Last Admin: 09/22/17 10:43 Dose: 40 mg - Objective Vital Signs: Vital Signs Temperature 98.4 F 09/22/17 10:00 Pulse Rate 62 09/22/17 12:00 Respiratory Rate 15 09/22/17 12:00 Blood Pressure 119/50 09/22/17 12:00 O2 Sat by Pulse Oximetry (%) 95 09/22/17 09:34 Constitutional: Yes: No Distress, Calm Eyes: Yes: Conjunctiva Clear HENT: Yes: Atraumatic Neck: Yes: Supple Cardiovascular: Yes: Regular Rate and Rhythm Respiratory: Yes: Regular Gastrointestinal: Yes: Soft. No: Tenderness Neurological: Yes: Alert Labs: CBC, BMP 09/22/17 05:52 09/22/17 05:52 INR, PTT INR 1.19 (0.82-1.09) H 09/22/17 05:52 Laboratory Last Values WBC 9.4 K/mm3 (4.0-10.0) 09/22/17 05:52 RBC 4.21 M/mm3 (3.60-5.2) 09/22/17 05:52 Hgb 12.1 GM/dL (10.7-15.3) 09/22/17 05:52 Hct 35.0 % (32.4-45.2) 09/22/17 05:52 MCV 83.2 fl (80-96) 09/22/17 05:52 MCH 28.7 pg (25.7-33.7) 09/22/17 05:52 MCHC 34.5 g/dl (32.0-36.0) 09/22/17 05:52 RDW 14.7 % (11.6-15.6) 09/22/17 05:52 Plt Count 228 K/MM3 (134-434) 09/22/17 05:52 MPV 8.7 fl (7.5-11.1) 09/22/17 05:52 Neutrophils % 58.3 % (42.8-82.8) D 09/21/17 21:00 Lymphocytes % 27.9 % (8-40) D 09/21/17 21:00 Monocytes % 7.4 % (3.8-10.2) 09/21/17 21:00 Eosinophils % 5.9 % (0-4.5) H D 09/21/17 21:00 Basophils % 0.5 % (0-2.0) 09/21/17 21:00 PT with INR 13.50 SEC (9.7-13.0) H 09/22/17 05:52 INR 1.19 (0.82-1.09) H 09/22/17 05:52 PTT (Actin FS) 37.4 SECONDS (26.9-34.4) H 09/22/17 05:52 Sodium 142 mmol/L (136-145) 09/22/17 05:52 Potassium 4.6 mmol/L (3.5-5.1) 09/22/17 05:52 Chloride 109 mmol/L (98-107) H 09/22/17 05:52 Carbon Dioxide 22 mmol/L (21-32) 09/22/17 05:52 Anion Gap 11 (8-16) 09/22/17 05:52 BUN 15 mg/dL (7-18) 09/22/17 05:52 Creatinine 0.8 mg/dL (0.55-1.02) 09/22/17 05:52 Creat Clearance w eGFR 42.30 (>60) 09/21/17 05:40 POC Glucometer 112.37509 UNITS (80-120) 09/22/17 09:57 Random Glucose 90 mg/dL (74-106) 09/22/17 05:52 Lactic Acid 1.0 mmol/L (0.0-2.0) 09/21/17 00:35 Calcium 8.1 mg/dL (8.5-10.1) L 09/22/17 05:52 Phosphorus 2.5 mg/dL (2.5-4.9) 09/21/17 05:40 Magnesium 2.2 mg/dL (1.8-2.4) 09/21/17 05:40 Total Bilirubin 0.2 mg/dL (0.2-1.0) 09/21/17 05:40 AST 20 U/L (15-37) 09/21/17 05:40 ALT 21 U/L (12-78) 09/21/17 05:40 Alkaline Phosphatase 53 U/L (45-117) 09/21/17 05:40 Creatine Kinase 40 IU/L (26-192) 09/21/17 00:35 Troponin I 5.92 ng/ml (0.00-0.05) H* 09/22/17 05:52 Total Protein 5.5 g/dl (6.4-8.2) L 09/21/17 05:40 Albumin 2.8 g/dl (3.4-5.0) L 09/21/17 05:40 Triglycerides 147 mg/dL (35-160) 09/22/17 05:52 Cholesterol 145 mg/dL (50-200) 09/22/17 05:52 Total LDL Cholesterol 99 mg/dL (5-100) 09/22/17 05:52 HDL Cholesterol 29 mg/dL (40-60) L 09/22/17 05:52 Urine Color Sanna 09/20/17 17:30 Urine Appearance Cloudy 09/20/17 17:30 Urine pH 5.0 (5.0-8.0) 09/20/17 17:30 Ur Specific [place] 1.024 (1.001-1.035) 09/20/17 17:30 Urine Protein Negative (NEGATIVE) 09/20/17 17:30 Urine Glucose (UA) Negative (NEGATIVE) 09/20/17 17:30 Urine Ketones Trace (NEGATIVE) H 09/20/17 17:30 Urine Blood Negative (NEGATIVE) 09/20/17 17:30 Urine Nitrite Negative (NEGATIVE) 09/20/17 17:30 Urine Bilirubin Negative (<2.0 mg/dL) 09/20/17 17:30 Urine Urobilinogen Negative mg/dL (0.2-1.0) 09/20/17 17:30 Ur Leukocyte Esterase Negative (NEGATIVE) 09/20/17 17:30 Ur Random Sodium 44 MMOL/L 09/21/17 00:35 Ur Random Potassium 60.7 MMOL/L 09/21/17 00:35 Ur Random Chloride 61 MMOL/L 09/21/17 00:35 Urine Creatinine 110.0 mg/dL (20-320) 09/21/17 00:35 Stool Occult Blood Negative (NEGATIVE) 09/20/17 17:20 Blood Type O POSITIVE 09/21/17 00:35 Antibody Screen Negative 09/21/17 00:35 Crossmatch See Detail 09/21/17 00:35 Problem List - Problems (1) Upper gastrointestinal hemorrhage Code(s): K92.2 - GASTROINTESTINAL HEMORRHAGE, UNSPECIFIED Assessment/Plan Hemoglobin at the normal level today. NSTEMI. No stigmata of ongoing gastrointestinal bleeding. Continue care as per primary NICU teams. Will continue to monitor.
--- NOTE | 2017-09-22 13:54 | PN ---
Progress Note (short form) - Note Progress Note: Renal Follow up for TRAY on CKD Pt seen and examined in the ICU awake and alert reports diffuse body pain no SOB, N/V/d Endoscopy held because of elevated cardiac enzymes no further melena Vital Signs Temperature 98.4 F 09/22/17 10:00 Pulse Rate 63 09/22/17 12:44 Respiratory Rate 15 09/22/17 12:44 Blood Pressure 119/48 09/22/17 12:44 O2 Sat by Pulse Oximetry (%) 95 09/22/17 09:34 Intake & Output 09/19/17 09/20/17 09/21/17 09/22/17 23:59 23:59 23:59 23:59 Intake Total 2968 996 Output Total 1000 900 Balance 1968 96 Weight 57.153 kg 57.198 kg 59.511 kg NAD awake and alert MMM, No JVD RRR, no M/R CTA anterior exam soft NT/ND Right BKA, No LE edema, clubbing or cyanosis CBC, BMP 09/22/17 05:52 09/22/17 05:52 Current Medications Atorvastatin Calcium (Lipitor -) 40 mg PO HS [facility] Brimonidine Tartrate (Alphagan 0.2% -) 1 drop OU BID [facility] Last Admin: 09/22/17 10:30 Dose: 1 drop Chlorhexidine Gluconate (Hibiclens For Decolonization -) 1 applic TP [facility] Last Admin: 09/21/17 23:17 Dose: 1 applic Sodium Chloride (Normal Saline -) 1,000 mls @ 100 mls/hr IV ASDIR [facility] Last Admin: 09/22/17 10:32 Dose: 100 mls/hr Insulin Aspart (Novolog Vial Sliding Scale -) 1 vial SQ Q4H [facility] PRN Reason: Protocol Last Admin: 09/22/17 10:00 Dose: Not Given Latanoprost (Xalatan 0.005% Eye Drops -) 1 drop OU HS [facility] Last Admin: 09/21/17 22:31 Dose: 1 drop Lisinopril (Prinivil) 20 mg PO DAILY [facility] Last Admin: 09/22/17 10:48 Dose: 20 mg Metoprolol Succinate (Toprol Xl -) 12.5 mg PO DAILY [facility] Last Admin: 09/22/17 10:28 Dose: 12.5 mg Mupirocin (Bactroban Ointment (For Decolonization) -) 1 applic NS BID [facility] Stop: 09/25/17 21:59 Last Admin: 09/22/17 10:30 Dose: 1 applic Pantoprazole Sodium (Protonix Iv) 40 mg IVPB BID [facility] Last Admin: 09/22/17 10:43 Dose: 40 mg 87 year old woman with PMhx of Dementia, PVD s/p R BKA, Hypertension, DM who presented from home with coffee ground emesis and admitted for GI bleed with TRAY with Cr of 1.9. #Acute Kidney Injury secondary to intravascular volume depletion #GI bleed with Anemia #Hx of hypertension now normotensive #DM Type 2 #Elevated Cardiac Enzymes Renal function improving with IVF Trend BUN/Cr continue gentle IVF while not getting transfusion Trend CBC, transfuse PRBC as per GI Continue PPI for endoscopy tomorrow Maintain off MARILEE/ARB for now Continue insulin sliding scale as per primary Will follow Renal function now improved to baseline s/p PRBC transfusion and IVF can titrate down IVF Cardiology follow up for elevated cardiac enzymes MARILEE restarted this am BP is at goal Trend H/H, transfuse as per ICU protocol Jonatan Arredondo DO
--- NOTE | 2017-09-22 14:24 | PN ---
Physical Exam: SUBJECTIVE: Patient seen and examined in the ICU. Pt remains AAOx1, pleasantly confused. Pt had troponins that peaked at 6.1 last night. Serial EKGs revealed no ST segment changes. Pt never experienced chest pain. Pt has had no further episodes of vomiting. Pt denies chest pain, sob, abdominal pain, fever, chills. OBJECTIVE: Vital Signs Period Temp Pulse Resp BP Sys/Cabral Pulse Ox Last 24 Hr 98.2 F-98.6 F 62-92 12-18 119-156/48-71 95-100 GENERAL: AAOx1 (to self), pleasantly confused, in NAD. LUNGS: CTAB. HEART: RRR, no murmur appreciated. ABDOMEN: Soft, nontender, not distended, normoactive bowel sounds, no guarding. LOWER EXTREMITIES: Right BKA. Warm, well-perfused. No calf tenderness. No peripheral edema. PSYCHIATRIC: Cooperative. Good eye contact. Appropriate mood and affect. Laboratory Results - last 24 hr 09/21/17 09/21/17 09/21/17 00:35 00:50 10:47 WBC RBC Hgb Hct MCV MCH MCHC RDW Plt Count MPV Neutrophils % Lymphocytes % Monocytes % Eosinophils % Basophils % PT with INR INR PTT (Actin FS) Sodium Potassium Chloride Carbon Dioxide Anion Gap BUN Creatinine POC Glucometer 168.85748 121.70498 Random Glucose Calcium Troponin I Triglycerides Cholesterol Total LDL Cholesterol HDL Cholesterol Blood Type O POSITIVE Antibody Screen Negative Crossmatch See Detail 09/21/17 09/21/17 09/21/17 13:55 14:30 19:11 WBC RBC Hgb Hct MCV MCH MCHC RDW Plt Count MPV Neutrophils % Lymphocytes % Monocytes % Eosinophils % Basophils % PT with INR INR PTT (Actin FS) Sodium Potassium Chloride Carbon Dioxide Anion Gap BUN Creatinine POC Glucometer 134.54542 104.35623 Random Glucose Calcium Troponin I 4.18 H* Triglycerides Cholesterol Total LDL Cholesterol HDL Cholesterol Blood Type Antibody Screen Crossmatch 09/21/17 09/21/17 09/21/17 21:00 21:00 23:15 WBC 8.4 RBC 4.12 D Hgb 11.7 D Hct 34.2 D MCV 83.0 MCH 28.5 MCHC 34.4 RDW 14.9 Plt Count 206 MPV 8.4 Neutrophils % 58.3 D Lymphocytes % 27.9 D Monocytes % 7.4 Eosinophils % 5.9 H D Basophils % 0.5 PT with INR INR PTT (Actin FS) Sodium Potassium Chloride Carbon Dioxide Anion Gap BUN Creatinine POC Glucometer 108.61956 Random Glucose Calcium Troponin I 6.16 H* Triglycerides Cholesterol Total LDL Cholesterol HDL Cholesterol Blood Type Antibody Screen Crossmatch 09/22/17 09/22/17 09/22/17 01:23 05:52 05:52 WBC 9.4 RBC 4.21 Hgb 12.1 Hct 35.0 MCV 83.2 MCH 28.7 MCHC 34.5 RDW 14.7 Plt Count 228 MPV 8.7 Neutrophils % Lymphocytes % Monocytes % Eosinophils % Basophils % PT with INR INR PTT (Actin FS) Sodium 142 Potassium 4.6 Chloride 109 H Carbon Dioxide 22 Anion Gap 11 BUN 15 Creatinine 0.8 POC Glucometer 104.44890 Random Glucose 90 Calcium 8.1 L Troponin I Triglycerides 147 Cholesterol 145 Total LDL Cholesterol 99 HDL Cholesterol 29 L Blood Type Antibody Screen Crossmatch 09/22/17 09/22/17 09/22/17 05:52 05:52 05:52 WBC RBC Hgb Hct MCV MCH MCHC RDW Plt Count MPV Neutrophils % Lymphocytes % Monocytes % Eosinophils % Basophils % PT with INR 13.50 H INR 1.19 H PTT (Actin FS) 37.4 H Sodium Potassium Chloride Carbon Dioxide Anion Gap BUN Creatinine POC Glucometer Random Glucose Calcium Troponin I 5.92 H* Triglycerides Cancelled Cholesterol Cancelled Total LDL Cholesterol Cancelled HDL Cholesterol Cancelled Blood Type Antibody Screen Crossmatch 09/22/17 09/22/17 06:00 09:57 WBC RBC Hgb Hct MCV MCH MCHC RDW Plt Count MPV Neutrophils % Lymphocytes % Monocytes % Eosinophils % Basophils % PT with INR INR PTT (Actin FS) Sodium Potassium Chloride Carbon Dioxide Anion Gap BUN Creatinine POC Glucometer 110.94070 112.45828 Random Glucose Calcium Troponin I Triglycerides Cholesterol Total LDL Cholesterol HDL Cholesterol Blood Type Antibody Screen Crossmatch Active Medications Generic Name Dose Route Start Last Admin Trade Name Freq PRN Reason Stop Dose Admin Atorvastatin Calcium 40 mg 09/22/17 22:00 Lipitor - PO HS JAIRON Brimonidine Tartrate 1 drop 09/20/17 22:00 09/22/17 10:30 Alphagan 0.2% - OU 1 drop BID JAIRON Administration Chlorhexidine Gluconate 1 applic 09/20/17 22:00 09/21/17 23:17 Hibiclens For Decolonization - TP 1 applic HS JAIRON Administration Sodium Chloride 1,000 mls @ 100 mls/hr 09/22/17 09:33 09/22/17 10:32 Normal Saline - IV 100 mls/hr ASDIR JAIRON Administration Insulin Aspart 1 vial 09/22/17 09:00 09/22/17 10:00 Novolog Vial Sliding Scale - SQ Not Given Q4H [facility] Protocol Latanoprost 1 drop 09/20/17 22:00 09/21/17 22:31 Xalatan 0.005% Eye Drops - OU 1 drop HS JAIRON Administration Lisinopril 20 mg 09/22/17 10:45 09/22/17 10:48 Prinivil PO 20 mg DAILY JAIRON Administration Metoprolol Succinate 12.5 mg 09/21/17 17:45 09/22/17 10:28 Toprol Xl - PO 12.5 mg DAILY JAIRON Administration Mupirocin 1 applic 09/20/17 22:00 09/22/17 10:30 Bactroban Ointment (For Decolonization) - NS 09/25/17 21:59 1 applic BID JAIRON Administration Pantoprazole Sodium 40 mg 09/21/17 22:00 09/22/17 10:43 Protonix Iv IVPB 40 mg BID JAIRON Administration IMAGIN09/22/17 Echo -> Left ventricle with moderately reduced systolic function and moderate global hypokinesis. Right ventricle normal in size and function. ASSESSMENT/PLAN: 87F with PMH of dementia, htn, CAD, DM, PVD s/p Right BKA, presents from [facility] on [facility] with multiple episodes of coffee ground emesis, admitted for suspected upper GIB. # NSTEMI - Cardiology Consult - continue Toprol XL 12.5mg daily - continue Lipitor - troponins peaked at 6.1 last night # upper GIB with acute blood loss anemia - possible gastric or duodenal ulcer vs gastritis - s/p 2U PRBCs with appropriate response - monitor CBC - transfuse prn - continue Protonix IVPB BID - GI (Dr. Mccormick) recs appreciated: Endoscopy cancelled for today 2/2 NSTEMI - monitor for overt s/s of bleeding # TRAY - resolved - monitor Cr and UOP - Nephrology (Dr. Arredondo) recs appreciated: resume MARILEE, titrate down on IVFs # DM - BGMs - Novolog SSI, no coverage required/given x 24 hrs - consider resuming home med of Levemir 26U at HS # htn - continue home med of Lisinopril # FEN/ppx - Fluids: NS @ 50 ml/hr - Electrolytes: wnl, continue to monitor - Nutrition: sodium controlled diet - DVT ppx with Left SCD # dispo - pt stable for transfer to Telemetry - pt is DNR/DNI Visit type - Emergency Visit Emergency Visit: Yes ED Registration Date: 09/20/17 Care time: The patient presented to the Emergency Department on the above date and was hospitalized for further evaluation of their emergent condition. - New Patient This patient is new to me today: No - Critical Care Critical Care patient: Yes Total Critical Care Time (in minutes): 37 Critical Care Statement: The care of this patient involved high complexity decision making to prevent further life threatening deterioration of the patient 's condition and/or to evaluate & treat vital organ system(s) failure or risk of failure.
--- NOTE | 2017-09-22 14:26 | CON.CARD ---
Consult Consult Specialty:: Cardiology - History of Present Illness History of Present Illness: 87 F with DM, bilateral BKA and HT was admitted with coffee ground emesis due to suspected upper GI bleeding, significant anemia, and TRAY. She has recived transfusion and has occasional mild low BP SBP around 90mmHg. On labs was noted to have TP up >6 with negative CPK. No dynamic ECG changes. An echocardiogram showed EF 45-40% without valvular pathology or segmental wall motion abnormality. She seems comfortable. - History Source History Provided By: Medical Record Limitations to Obtaining History: Dementia - Past Medical History DANDY TENDER: Yes: Dementia Cardio/Vascular: Yes: Other (perypheral vascular disease) Infectious Disease: Yes: C-Diff Musculoskeletal: Yes: Other (Right lower limb BKA) Endocrine: Yes: Diabetes Mellitus - Past Surgical History Past Surgical History: Yes: Amputation - Alcohol/Substance Use Hx Alcohol Use: No - Smoking History Smoking history: Unknown if ever smoked Have you smoked in the past 12 months: No - Social History ADL: Support Services Home Medications - Allergies Allergies/Adverse Reactions: Allergies Allergy/AdvReac Type Severity Reaction Status Date / Time No Known Allergies Allergy Verified 09/20/17 17:28 - Home Medications Home Medications: Ambulatory Orders Aspirin [ASA -] 81 mg PO DAILY 01/30/14 Oxycodone HCl 5 mg PO BID 01/30/14 Acetaminophen [Tylenol .Extra-Strength -] 1,000 mg PO Q8H PRN #0 tablet Amlodipine Besylate [Norvasc -] 5 mg PO DAILY #0 tablet 02/04/14 Brimonidine Tartrate [Alphagan 0.2% -] 1 drop OU BID #0 drops 02/04/14 Insulin (Novolog) [Novolog Flexpen -] 0 units SQ ACHS #0 pen 02/04/14 Latanoprost 0.005% Eye Drops [Xalatan 0.005% Eye Drops -] 1 drop OU HS #0 drops 02/04/14 Cholecalciferol (Vitamin D3) [Vitamin D3 -] 50,000 unit PO WEEKLY 09/20/17 Docusate Sodium [Colace] 100 mg PO BID 09/20/17 Gabapentin [Neurontin -] 100 mg PO HS 09/20/17 Insulin (Levemir) [Levemir Flexpen -] 26 units SQ HS 09/20/17 Lisinopril [Prinivil] 30 mg PO DAILY 09/20/17 Magnesium Hydrox 2400MG/30Ml [Milk of Magnesia -] 30 ml PO DAILY PRN 09/20/17 Menthol [Icy Hot] 1 each TP ASDIR PRN 09/20/17 Mirtazapine [Remeron -] 30 mg PO HS 09/20/17 Polyethylene Glycol 3350 [Miralax (For Daily Use) -] 17 gm PO BID 09/20/17 Sennosides [Senna] 2 tab PO HS 09/20/17 Tramadol HCl 50 mg PO Q4H PRN 09/20/17 Review of Systems Unable to obtain ROS, reason: Dementia Vital Signs: Vital Signs Temperature 98.4 F 09/22/17 10:00 Pulse Rate 63 09/22/17 12:44 Respiratory Rate 15 09/22/17 12:44 Blood Pressure 119/48 09/22/17 12:44 O2 Sat by Pulse Oximetry (%) 95 09/22/17 09:34 Constitutional: Yes: No Distress, Calm Eyes: Yes: Conjunctiva Clear HENT: Yes: Atraumatic, Normocephalic Neck: Yes: Supple, Trachea Midline Respiratory: Yes: Regular, CTA Bilaterally Gastrointestinal: Yes: Normal Bowel Sounds, Soft Cardiovascular: Yes: Regular Rate and Rhythm JVD: No Carotid Bruit: No Heart Sounds: Yes: S1, S2 Murmur: No: Systolic Murmur, Diastolic Murmur Extremities: Yes: Amputation Edema: No - Other Data Labs, Other Data: CBC, BMP 09/22/17 05:52 09/22/17 05:52 INR, PTT INR 1.19 (0.82-1.09) H 09/22/17 05:52 Troponin, BNP 09/21/17 09/21/17 09/22/17 14:30 21:00 05:52 Troponin I 4.18 H* 6.16 H* 5.92 H* Troponin, BNP 09/21/17 09/21/17 09/22/17 14:30 21:00 05:52 Troponin I 4.18 H* 6.16 H* 5.92 H* NSR with nl axis and intervals and nonspecific ST T wave changes. Echo: Report Reviewed Assessment/Plan 87 F with DM and significant PVD with amputations and is admitted with severe anemia, coffee ground emesis and borderline BP. There is significant TP elevation with negative CPK and non-dynamic ECG. Echocardiogram with EF 40-45% without segmental wall motion abnormalities. 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 Not a candidate for ASA or plavix due to bleeding. No role for AC. Continue with low dose metoprolol, avoid hypotension and consider lowering lisinopril dose to avoid low BP. Transfuse for Hgb <8. No cardiac contraindication to GI procedures. When cleared by GI would consider placing on Plavix (no ASA).
[2017-09-22] MEDS: SODIUM CHLORIDE 1,000 ML IV SCH (14:30)
[2017-09-22] MEDS ORDERED: PT OWN MED DRAWER 7, Y5N ONE (21:44)
[2017-09-22] MEDS: PANTOPRAZOLE SODIUM 40 MG VIAL IVPUSH SCH (21:55)
[2017-09-22] MEDS ORDERED: LATANOPROST 0.005% OPHTH SOLN 2.5ML BOTTLE OU SCH (22:00)
[2017-09-22] MEDS ORDERED: ATORVASTATIN CA 40 MG TABLET (FP) PO SCH (22:00)
[2017-09-23] MEDS: INSULIN SLIDING SCALE (NOVOLOG) 1 VIAL SQ SCH ×4 (06:24→21:32)
[2017-09-23 06:42] LABS: HEMATOCRIT 37.5 % (32.4-45.2); HEMOGLOBIN 12.7 GM/dL (10.7-15.3); MCH 28.4 pg (25.7-33.7); MCHC 33.9 g/dl (32.0-36.0); MEAN CELL VOLUME 83.6 fl (80-96); MEAN PLT VOLUME 8.7 fl (7.5-11.1); PLATELET COUNT 224 K/MM3 (134-434); RBC 4.49 M/mm3 (3.60-5.2); RDW 15.1 % (11.6-15.6)
[2017-09-23 06:55] LABS: ANION GAP 6 (8-16); BLOOD UREA NITROGEN 12 mg/dL (7-18); CALCIUM 8.1 mg/dL (8.5-10.1); CHLORIDE 110 mmol/L (98-107); CO2 24 mmol/L (21-32); CREATININE 0.8 mg/dL (0.55-1.02); GLUCOSE,RANDOM 107 mg/dL (74-106); MAGNESIUM 1.8 mg/dL (1.8-2.4); PHOSPHOROUS 2.3 mg/dL (2.5-4.9); POTASSIUM 4.3 mmol/L (3.5-5.1); SODIUM 140 mmol/L (136-145)
[2017-09-23 07:01] LABS: INR 1.22 (0.82-1.09); PROTHROMBIN TIME (PATIENT) 13.8 SEC (9.7-13.0)
[2017-09-23 07:04] LABS: ACTIVATED PTT 36.2 SECONDS (26.9-34.4)
[2017-09-23] MEDS ORDERED: INSULIN (NOVOLOG) ASPART 100 UNITS/ML 10ML VIAL ONE (07:07)
--- NOTE | 2017-09-23 08:56 | PN ---
Physical Exam: SUBJECTIVE: Patient seen and examined. No acute events overnight. Pt has no complaints. She denies chest pain, SOB, abdominal pain, n/v/d/c, and dysuria. OBJECTIVE: Vital Signs Period Temp Pulse Resp BP Sys/Cabral Pulse Ox Last 24 Hr 98.0 F-98.6 F 53-83 10-18 115-160/36-78 95-98 GENERAL: elderly female, lying in bed, in NAD HEENT: NC, AT LUNGS: CTAB, no rales or wheezing HEART: RRR, no murmurs appreciated ABDOMEN: soft, NT, ND EXTREMITIES: no edema NEUROLOGICAL: Cranial nerves II through XII grossly intact. Normal speech, gait not observed. Laboratory Results - last 24 hr 09/21/17 09/21/17 09/21/17 00:50 10:47 13:55 WBC RBC Hgb Hct MCV MCH MCHC RDW Plt Count MPV PT with INR INR PTT (Actin FS) Sodium Potassium Chloride Carbon Dioxide Anion Gap BUN Creatinine POC Glucometer 168.67747 121.52587 134.97015 Random Glucose Calcium Phosphorus Magnesium Triglycerides Cholesterol Total LDL Cholesterol HDL Cholesterol 09/21/17 09/21/17 09/22/17 19:11 23:15 01:23 WBC RBC Hgb Hct MCV MCH MCHC RDW Plt Count MPV PT with INR INR PTT (Actin FS) Sodium Potassium Chloride Carbon Dioxide Anion Gap BUN Creatinine POC Glucometer 104.63518 108.48726 104.34684 Random Glucose Calcium Phosphorus Magnesium Triglycerides Cholesterol Total LDL Cholesterol HDL Cholesterol 09/22/17 09/22/17 09/22/17 05:52 05:52 06:00 WBC RBC Hgb Hct MCV MCH MCHC RDW Plt Count MPV PT with INR INR PTT (Actin FS) Sodium 142 Potassium 4.6 Chloride 109 H Carbon Dioxide 22 Anion Gap 11 BUN 15 Creatinine 0.8 POC Glucometer 110.63798 Random Glucose 90 Calcium 8.1 L Phosphorus Magnesium Triglycerides 147 Cancelled Cholesterol 145 Cancelled Total LDL Cholesterol 99 Cancelled HDL Cholesterol 29 L Cancelled 09/22/17 09/22/17 09/23/17 09:57 16:22 05:40 WBC 7.0 RBC 4.49 Hgb 12.7 Hct 37.5 MCV 83.6 MCH 28.4 MCHC 33.9 RDW 15.1 Plt Count 224 MPV 8.7 PT with INR INR PTT (Actin FS) Sodium Potassium Chloride Carbon Dioxide Anion Gap BUN Creatinine POC Glucometer 112.85476 124.30418 Random Glucose Calcium Phosphorus Magnesium Triglycerides Cholesterol Total LDL Cholesterol HDL Cholesterol 09/23/17 09/23/17 05:40 05:40 WBC RBC Hgb Hct MCV MCH MCHC RDW Plt Count MPV PT with INR 13.80 H INR 1.22 H PTT (Actin FS) 36.2 H Sodium 140 Potassium 4.3 Chloride 110 H Carbon Dioxide 24 Anion Gap 6 L BUN 12 Creatinine 0.8 POC Glucometer Random Glucose 107 H Calcium 8.1 L Phosphorus 2.3 L Magnesium 1.8 Triglycerides Cholesterol Total LDL Cholesterol HDL Cholesterol Active Medications Generic Name Dose Route Start Last Admin Trade Name Freq PRN Reason Stop Dose Admin Atorvastatin Calcium 40 mg 09/22/17 22:00 09/22/17 21:55 Lipitor - PO 40 mg HS JAIRON Administration Brimonidine Tartrate 1 drop 09/22/17 22:00 09/22/17 21:55 Alphagan 0.2% - OU 1 drop BID JAIRON Administration Sodium Chloride 1,000 mls @ 50 mls/hr 09/22/17 14:24 09/22/17 14:30 Normal Saline - IV 50 mls/hr ASDIR JAIRON Administration Insulin Aspart 1 vial 09/22/17 16:30 09/23/17 06:24 Novolog Vial Sliding Scale - SQ Not Given ACHS AJIRON Protocol Latanoprost 1 drop 09/22/17 22:00 09/22/17 21:56 Xalatan 0.005% Eye Drops - OU 1 drop HS JAIRON Administration Lisinopril 10 mg 09/23/17 10:00 Prinivil PO DAILY JAIRON Metoprolol Succinate 12.5 mg 09/23/17 10:00 Toprol Xl - PO DAILY JAIRON Pantoprazole Sodium 40 mg 09/22/17 22:00 09/22/17 21:55 Protonix Iv IVPUSH 40 mg BID JAIRON Administration ASSESSMENT/PLAN: 87F with PMH of dementia, htn, CAD, DM, and PVD s/p Right BKA who presented from [facility] on [facility] with multiple episodes of coffee ground emesis, admitted for suspected upper GIB. Cardio # NSTEMI - Cardiology Consult - continue Toprol XL 12.5mg daily - continue Lipitor - troponins peaked at 6.1 # HTN - continue home med of Lisinopril GI # upper GIB with acute blood loss anemia - s/p EGD today with Dr. Mccormick, which revealed erosive gastritis. recs appreciated. - resume diet, PPI, carafate. No NSAIDs Renal # TRAY - resolved, creatinine today of 0.8 - monitor Cr and UOP - Nephrology (Dr. Arredondo) recs appreciated: resume MARILEE, titrate down on IVFs Endo # DM - BGMs - Novolog SSI - consider resuming home med of Levemir 26U at HS FEN/ppx - Fluids: NS @ 50 ml/hr - Electrolytes: wnl, continue to monitor - Nutrition: sodium controlled diet - DVT ppx with Left SCD Dispo - pt stable for transfer to Telemetry - pt is DNR/DNI Case discussed with attending, Dr. Kapoor. -Chalo Atkinson MD PGY1 Visit type - Emergency Visit Emergency Visit: Yes ED Registration Date: 09/20/17 Care time: The patient presented to the Emergency Department on the above date and was hospitalized for further evaluation of their emergent condition. - New Patient This patient is new to me today: No - Critical Care Critical Care patient: Yes Total Critical Care Time (in minutes): 37 Critical Care Statement: The care of this patient involved high complexity decision making to prevent further life threatening deterioration of the patient 's condition and/or to evaluate & treat vital organ system(s) failure or risk of failure.
[2017-09-23] MEDS ORDERED: LISINOPRIL 10 MG TABLET (FP) PO SCH (10:00)
[2017-09-23] MEDS ORDERED: metoPROLOL SUCCINATE 25 MG TAB.SR.24H (FP) PO SCH (10:00)
[2017-09-23] MEDS: PANTOPRAZOLE SODIUM 40 MG VIAL IVPUSH SCH ×2 (11:04→21:18)
[2017-09-23] MEDS: BRIMONIDINE TARTRATE 0.2% OPHTHALMIC 5 ML BOTTLE OU SCH ×2 (11:04→21:17)
[2017-09-23] MEDS: SODIUM CHLORIDE 1,000 ML IV SCH ×2 (11:09→15:06)
--- NOTE | 2017-09-23 12:38 | PN ---
Progress Note (short form) - Note Progress Note: Renal Follow up for TRAY on CKD Pt seen and examined in the ICU awake and alert no acute complaints denies any sob, chest pain, abd pain, N/V for endoscopy today making urine Vital Signs Temperature 98 F 09/23/17 10:00 Pulse Rate 68 09/23/17 12:00 Respiratory Rate 18 09/23/17 12:00 Blood Pressure 130/70 09/23/17 12:00 O2 Sat by Pulse Oximetry (%) 98 09/23/17 09:00 Intake & Output 09/20/17 09/21/17 09/22/17 09/23/17 23:59 23:59 23:59 23:59 Intake Total 2968 2602 350 Output Total 1000 2000 600 Balance 1968 602 -250 Weight 57.153 kg 57.198 kg 59.511 kg 58.513 kg NAD awake and alert MMM, No JVD RRR, no M/R CTA anterior exam soft NT/ND Right BKA, No LE edema, clubbing or cyanosis CBC, BMP 09/23/17 05:40 09/23/17 05:40 Current Medications Atorvastatin Calcium (Lipitor -) 40 mg PO HS [facility] Last Admin: 09/22/17 21:55 Dose: 40 mg Brimonidine Tartrate (Alphagan 0.2% -) 1 drop OU BID [facility] Last Admin: 09/23/17 11:04 Dose: 1 drop Sodium Chloride (Normal Saline -) 1,000 mls @ 50 mls/hr IV ASDIR [facility] Last Admin: 09/23/17 11:09 Dose: 50 mls/hr Insulin Aspart (Novolog Vial Sliding Scale -) 1 vial SQ ACHS [facility] PRN Reason: Protocol Last Admin: 09/23/17 12:34 Dose: Not Given Latanoprost (Xalatan 0.005% Eye Drops -) 1 drop OU HS [facility] Last Admin: 09/22/17 21:56 Dose: 1 drop Lisinopril (Prinivil) 10 mg PO DAILY [facility] Last Admin: 09/23/17 11:04 Dose: 10 mg Metoprolol Succinate (Toprol Xl -) 12.5 mg PO DAILY [facility] Last Admin: 09/23/17 11:04 Dose: 12.5 mg Pantoprazole Sodium (Protonix Iv) 40 mg IVPUSH BID [facility] Last Admin: 09/23/17 11:04 Dose: 40 mg 87 year old woman with PMhx of Dementia, PVD s/p R BKA, Hypertension, DM who presented from home with coffee ground emesis and admitted for GI bleed with TRAY with Cr of 1.9. #Acute Kidney Injury secondary to intravascular volume depletion #GI bleed with Anemia #Hx of hypertension now normotensive #DM Type 2 #Elevated Cardiac Enzymes Renal function improved and stable On lisinopril for BP control can d/c IVF when tolerating oral diet Replete Phos with PO Neutra-phos s/p endoscopy GI follow up, endoscopy today Will sign off case at this time please call with any questions or concerns Jonatan Arredondo DO
--- NOTE | 2017-09-23 12:45 | PN ---
Teaching Attending Note Name of Resident: Chalo Atkinson ATTENDING PHYSICIAN STATEMENT I saw and evaluated the patient. I reviewed the resident's note and discussed the case with the resident. I agree with the resident's findings and plan as documented. SUBJECTIVE: Patient seen and examined in the ICU. Awake and alert. Denies CP or SOB. No nausea or vomiting. No occult bleeding. Intake & Output 09/20/17 09/21/17 09/22/17 09/23/17 23:59 23:59 23:59 23:59 Intake Total 2968 2602 350 Output Total 1000 2000 600 Balance 1968 602 -250 Weight 126 lb 126 lb 1.6 oz 131 lb 3.2 oz 129 lb Last Vital Signs Temp Pulse Resp BP Pulse Ox 98 F 68 18 130/70 98 09/23/17 10:00 09/23/17 12:00 09/23/17 12:00 09/23/17 12:00 09/23/17 09:00 Active Medications Atorvastatin Calcium (Lipitor -) [address] [facility] Last Admin: 09/22/17 21:55 Dose: 40 mg Brimonidine Tartrate (Alphagan 0.2% -) [address] [facility] Last Admin: 09/23/17 11:04 Dose: 1 drop Sodium Chloride (Normal Saline -) 1,000 mls @ 50 mls/hr IV ASDIR [facility] Last Admin: 09/23/17 11:09 Dose: 50 mls/hr Insulin Aspart (Novolog Vial Sliding Scale -) [address] [facility] PRN Reason: Protocol Last Admin: 09/23/17 12:34 Dose: Not Given Latanoprost (Xalatan 0.005% Eye Drops -) 1 drop OU [facility] Last Admin: 09/22/17 21:56 Dose: 1 drop Lisinopril (Prinivil) [address] [facility] Last Admin: 09/23/17 11:04 Dose: 10 mg Metoprolol Succinate (Toprol Xl -) 12.[address] [facility] Last Admin: 09/23/17 11:04 Dose: 12.5 mg Pantoprazole Sodium (Protonix Iv) [address] [facility] Last Admin: 09/23/17 11:04 Dose: 40 mg Potassium Phos/Sodium Phos (Phos-Nak Packet -) [address] [facility] Stop: 09/24/17 06:01 Gen: NAD at rest Heart: RRR Lung: Clear Abd: soft, NT, ND Ext: Right BKA Laboratory Results - last 24 hr 09/21/17 09/22/17 09/23/17 05:41 16:22 05:40 WBC 7.0 RBC 4.49 Hgb 12.7 Hct 37.5 MCV 83.6 MCH 28.4 MCHC 33.9 RDW 15.1 Plt Count 224 MPV 8.7 PT with INR INR PTT (Actin FS) Sodium Potassium Chloride Carbon Dioxide Anion Gap BUN Creatinine POC Glucometer 135.95725 124.58715 Random Glucose Calcium Phosphorus Magnesium Creatine Kinase Troponin I 09/23/17 09/23/17 09/23/17 05:40 05:40 05:40 WBC RBC Hgb Hct MCV MCH MCHC RDW Plt Count MPV PT with INR 13.80 H INR 1.22 H PTT (Actin FS) 36.2 H Sodium 140 Potassium 4.3 Chloride 110 H Carbon Dioxide 24 Anion Gap 6 L BUN 12 Creatinine 0.8 POC Glucometer Random Glucose 107 H Calcium 8.1 L Phosphorus 2.3 L Magnesium 1.8 Creatine Kinase 93 Troponin I 4.07 H* ASSESSMENT AND PLAN: GI Bleed Acute Blood Loss Anemia (?) GI Mass NSTEMI Lactic Acidosis Acute Kidney Injury HTN DM Dementia - For possible Endoscopy - monitor CBC, coags - Normal transfusion thresholds - PPI - Ensure large bore peripheral access - mechanical DVT prophylaxis - Cardiac Telemetry monitoring - DNR/DNI Dr Kapoor Critical care time spent in reviewing chart, evaluating patient and formulating plan 36 min
--- NOTE | 2017-09-23 13:44 | PN ---
Teaching Attending Note Name of Resident: Rudy Matthews ATTENDING PHYSICIAN STATEMENT I saw and evaluated the patient. I reviewed the resident's note and discussed the case with the resident. I agree with the resident's findings and plan as documented. SUBJECTIVE: no fever or chills . no dysuria . no abd pain . per RN. melena over night OBJECTIVE: NAD. MMM CV: RRR, 2/6 SM at RUSB. Lungs: CTAB Ext: no edema or erythema. R BKA with clean normal stump with no skin breakdown Abd: soft, NT, ND , NL BS ASSESSMENT AND PLAN: 87 y/o lady with h/o dementia , CAD, PVD, R BKA, DM , HTN, And SVt who was [place] with coffee ground emesis . 1- Upper GI bleed. with acute blood loss anemia. S/P 2 units of RBCs stable HB ,but had black stool last night . - EGD today - cont PPI - hold ASA - OB 2- NSTEMI:trop trended down - cont BB . - increae lisinopril - possibly plavix after EGD , depending on results - cont tele - cont lipitor 40 mg HS 3- TRAY: resolved. dc IVF when able to eat 4- h/o HTN: increae lisinopril . cont BB 5- H/o PVD: hold ASA Tx to tele . dispo : HLOC
--- NOTE | 2017-09-23 13:54 | PROC ---
Endoscopy Procedure Endoscopy procedure completed. Please see scanned procedure report. Erosive gastritis was found and biopsied. No other abnormalities noted. Resume previous diet PPI Carafate No NSAIDs
[2017-09-23] MEDS: NAPH,MB-DB/K PH,MBDB POWDER PACKET PO SCH ×2 (15:05→21:18)
[2017-09-23] MEDS: SUCRALFATE 1 GM/10 ML UNIT DOSE CUPS PO SCH ×3 (15:05→21:18)
--- NOTE | 2017-09-23 15:06 | PN ---
Progress Note, Physician Chief Complaint: Comfortable. no events. Telem NSR History of Present Illness: 87 F with DM, bilateral BKA and HT was admitted with coffee ground emesis due to suspected upper GI bleeding, significant anemia, and TRAY. She has recived transfusion and has occasional mild low BP SBP around 90mmHg. On labs was noted to have TP up >6 with negative CPK. No dynamic ECG changes. An echocardiogram showed EF 45-40% without valvular pathology or segmental wall motion abnormality. She seems comfortable. - Current Medication List Current Medications: Active Medications Atorvastatin Calcium (Lipitor -) 40 mg PO HS [facility] Last Admin: 09/22/17 21:55 Dose: 40 mg Brimonidine Tartrate (Alphagan 0.2% -) 1 drop OU BID [facility] Last Admin: 09/23/17 11:04 Dose: 1 drop Sodium Chloride (Normal Saline -) 1,000 mls @ 50 mls/hr IV ASDIR [facility] Last Admin: 09/23/17 11:09 Dose: 50 mls/hr Insulin Aspart (Novolog Vial Sliding Scale -) 1 vial SQ ACHS [facility] PRN Reason: Protocol Last Admin: 09/23/17 12:34 Dose: Not Given Latanoprost (Xalatan 0.005% Eye Drops -) 1 drop OU HS [facility] Last Admin: 09/22/17 21:56 Dose: 1 drop Lisinopril (Prinivil) 10 mg PO DAILY [facility] Last Admin: 09/23/17 11:04 Dose: 10 mg Metoprolol Succinate (Toprol Xl -) 12.5 mg PO DAILY [facility] Last Admin: 09/23/17 11:04 Dose: 12.5 mg Pantoprazole Sodium (Protonix Iv) 40 mg IVPUSH BID [facility] Last Admin: 09/23/17 11:04 Dose: 40 mg Potassium Phos/Sodium Phos (Phos-Nak Packet -) 1 packet PO TID [facility] Stop: 09/24/17 06:01 Sucralfate (Carafate Oral Suspension -) 1 gm PO QID [facility] - Objective Vital Signs: Vital Signs Temperature 98 F 09/23/17 10:00 Pulse Rate 68 09/23/17 12:00 Respiratory Rate 18 09/23/17 12:00 Blood Pressure 130/70 09/23/17 12:00 O2 Sat by Pulse Oximetry (%) 98 09/23/17 09:00 Constitutional: Yes: No Distress, Calm Eyes: Yes: Conjunctiva Clear HENT: Yes: Atraumatic, Normocephalic Neck: Yes: Supple, Trachea Midline Cardiovascular: Yes: Regular Rate and Rhythm, S1, S2. No: JVD, Gallop, Murmur Respiratory: Yes: Regular, CTA Bilaterally Gastrointestinal: Yes: Normal Bowel Sounds, Soft Labs: CBC, BMP 09/23/17 05:40 09/23/17 05:40 INR, PTT INR 1.22 (0.82-1.09) H 09/23/17 05:40 Problem List - Problems (1) NSTEMI (non-ST elevated myocardial infarction) Code(s): I21.4 - NON-ST ELEVATION (NSTEMI) MYOCARDIAL INFARCTION Assessment/Plan 87 F with DM and significant PVD with amputations and is admitted with severe anemia, coffee ground emesis and borderline BP. There is significant TP elevation with negative CPK and non-dynamic ECG. Echocardiogram with EF 40-45% without segmental wall motion abnormalities. erosive gastritis on EGD. HR and BP stable. Expect TP o remain elevated for some time. Transfuse for Hgb <8. No NSAID. Hold off on Plavix until cleared by GI. Will see as needed.
[2017-09-23 15:30] VITALS: BMI 21.4
--- NOTE | 2017-09-23 18:44 | PN ---
Physical Exam: SUBJECTIVE: Patient seen and examined at bedside. No new complaints. no events overnight OBJECTIVE: Vital Signs Period Temp Pulse Resp BP Sys/Cabral Pulse Ox Last 24 Hr 97.8 F-98.4 F 53-72 10-18 93-162/36-78 98-98 GENERAL: The patient is awake, alert, oriented x1 , in no acute distress. HEAD: Normal with no signs of trauma. NECK: Trachea midline, full range of motion, supple. LUNGS: Breath sounds equal, clear to auscultation bilaterally, no wheezes, no crackles, no accessory muscle use. HEART: Regular rate and rhythm, S1, S2 without murmur, rub or gallop. ABDOMEN: Soft, nontender, nondistended, normoactive bowel sounds, no guarding, no rebound, no hepatosplenomegaly, no masses. EXTREMITIES: 2+ pulses, warm, well-perfused, no edema. NEUROLOGICAL: Cranial nerves II through X grossly intact. Normal speech, gait not observed. SKIN: Warm, dry, normal turgor, no rashes or lesions noted Laboratory Results - last 24 hr 09/21/17 09/22/17 09/23/17 05:41 16:22 05:40 WBC 7.0 RBC 4.49 Hgb 12.7 Hct 37.5 MCV 83.6 MCH 28.4 MCHC 33.9 RDW 15.1 Plt Count 224 MPV 8.7 PT with INR INR PTT (Actin FS) Sodium Potassium Chloride Carbon Dioxide Anion Gap BUN Creatinine POC Glucometer 135.66957 124.63775 Random Glucose Calcium Phosphorus Magnesium Creatine Kinase Troponin I 09/23/17 09/23/17 09/23/17 05:40 05:40 05:40 WBC RBC Hgb Hct MCV MCH MCHC RDW Plt Count MPV PT with INR 13.80 H INR 1.22 H PTT (Actin FS) 36.2 H Sodium 140 Potassium 4.3 Chloride 110 H Carbon Dioxide 24 Anion Gap 6 L BUN 12 Creatinine 0.8 POC Glucometer Random Glucose 107 H Calcium 8.1 L Phosphorus 2.3 L Magnesium 1.8 Creatine Kinase 93 Troponin I 4.07 H* Active Medications Generic Name Dose Route Start Last Admin Trade Name Freq PRN Reason Stop Dose Admin Atorvastatin Calcium 40 mg 09/22/17 22:00 09/22/17 21:55 Lipitor - PO 40 mg HS JAIRON Administration Brimonidine Tartrate 1 drop 09/22/17 22:00 09/23/17 11:04 Alphagan 0.2% - OU 1 drop BID JAIRON Administration Insulin Aspart 1 vial 09/22/17 16:30 09/23/17 18:26 Novolog Vial Sliding Scale - SQ Not Given ACHS [facility] Protocol Latanoprost 1 drop 09/22/17 22:00 09/22/17 21:56 Xalatan 0.005% Eye Drops - OU 1 drop HS JAIRON Administration Lisinopril 20 mg 09/24/17 10:00 Prinivil PO DAILY JAIRON Metoprolol Succinate 12.5 mg 09/23/17 10:00 09/23/17 11:04 Toprol Xl - PO 12.5 mg DAILY JAIRON Administration Pantoprazole Sodium 40 mg 09/22/17 22:00 09/23/17 11:04 Protonix Iv IVPUSH 40 mg BID JAIRON Administration Potassium Phos/Sodium Phos 1 packet 09/23/17 14:00 09/23/17 15:05 Phos-Nak Packet - PO 09/24/17 06:01 1 packet TID JAIRON Administration Sucralfate 1 gm 09/23/17 14:00 09/23/17 18:21 Carafate Oral Suspension - PO 1 gm QID JAIRON Administration ASSESSMENT/PLAN: The patient is an 87 yo F with a PMHx HTN, DM, PVD, s/p R BKA, CAD, dementia who is admistted to the ICU for UGIB #Troponemia 2/2 demand ischemia -Tropes .2 -> .15 -> 4.18 -> 6.16 -> 5.92 -> 4.07 -EKG w/o acute ischemic changes -no events on tele -Cardiology onboard; patient cleared for procedures. -AC contraindicated 2/2 bleeding; per cardiology, can place the patient on Plavix after bleeding r/o #Upper GI bleed and abdominal distension -Patient wihtout episodes of vomiting -s/p EGD today which showed only gastritis -Hb Stable #SIRS- resolved -f/u BCX, UCX #TRAY- resolved -baseline cr. 1.1 from [place] paperwork; Cr. this AM 1.4 -NS @83 -avoid nephrotoxins -Nephro consulted #HTN/CAD -restarted lisinopril 10mg daily today #DM -BGM -ISS -holding home Levemir 26U HS #Hyperkalemia/Magnesium- resolved #FEN -NS @ 83 -Monitor lytes, replete PRN -NPO #PPX -SCDs while patient bleeding -Protonix 40 IVPB BID #Dispo -admit to ICU Visit type - Emergency Visit Emergency Visit: Yes ED Registration Date: 09/20/17 Care time: The patient presented to the Emergency Department on the above date and was hospitalized for further evaluation of their emergent condition. - New Patient This patient is new to me today: No - Critical Care Critical Care patient: Yes Total Critical Care Time (in minutes): 40 Critical Care Statement: The care of this patient involved high complexity decision making to prevent further life threatening deterioration of the patient 's condition and/or to evaluate & treat vital organ system(s) failure or risk of failure.
[2017-09-23] MEDS: LATANOPROST 0.005% OPHTH SOLN 2.5ML BOTTLE OU SCH (21:17)
[2017-09-23] MEDS: ATORVASTATIN CA 40 MG TABLET (FP) PO SCH (21:18)
[2017-09-23] MEDS ORDERED: HEMOQUE TEST 1 EACH EACH ONE (21:28)
[2017-09-24] MEDS: NAPH,MB-DB/K PH,MBDB POWDER PACKET PO SCH (05:10)
[2017-09-24] MEDS: INSULIN SLIDING SCALE (NOVOLOG) 1 VIAL SQ SCH ×2 (06:06→17:16)
[2017-09-24 06:53] LABS: BASO % 0.5 % (0-2.0); EOS % 3.1 % (0-4.5); HEMATOCRIT 40.6 % (32.4-45.2); LYMPH % 20.8 % (8-40); MCH 28.9 pg (25.7-33.7); MCHC 34.5 g/dl (32.0-36.0); MEAN CELL VOLUME 83.8 fl (80-96); MEAN PLT VOLUME 8.9 fl (7.5-11.1); MONO % 8.3 % (3.8-10.2); NEUT % 67.3 % (42.8-82.8); PLATELET COUNT 235 K/MM3 (134-434); RBC 4.85 M/mm3 (3.60-5.2); RDW 15.2 % (11.6-15.6); WHITE BLOOD COUNT 9.2 K/mm3 (4.0-10.0)
[2017-09-24 09:00] LABS: ALBUMIN 3.3 g/dl (3.4-5.0); ALK PHOS 68 U/L (45-117); ANION GAP 8 (8-16); BILIRUBIN,TOTAL 0.7 mg/dL (0.2-1.0); BLOOD UREA NITROGEN 8 mg/dL (7-18); CALCIUM 8.2 mg/dL (8.5-10.1); CHLORIDE 106 mmol/L (98-107); CO2 25 mmol/L (21-32); CREATININE 0.8 mg/dL (0.55-1.02); GLUCOSE,RANDOM 85 mg/dL (74-106); MAGNESIUM 1.6 mg/dL (1.8-2.4); PHOSPHOROUS 2.5 mg/dL (2.5-4.9); POTASSIUM 4.1 mmol/L (3.5-5.1); SGOT/AST 24 U/L (15-37); SGPT/ALT 20 U/L (12-78); SODIUM 139 mmol/L (136-145); TOT PROT 6.7 g/dl (6.4-8.2)
[2017-09-24] MEDS ORDERED: PT OWN MED DRAWER 7, Y5N ONE (09:09)
[2017-09-24] MEDS: PANTOPRAZOLE SODIUM 40 MG VIAL IVPUSH SCH (09:13)
[2017-09-24] MEDS: metoPROLOL SUCCINATE 25 MG TAB.SR.24H (FP) PO SCH (09:13)
[2017-09-24] MEDS: SUCRALFATE 1 GM/10 ML UNIT DOSE CUPS PO SCH (09:13)
[2017-09-24] MEDS: LISINOPRIL 20 MG TABLET (FP) PO SCH (09:13)
[2017-09-24] MEDS: BRIMONIDINE TARTRATE 0.2% OPHTHALMIC 5 ML BOTTLE OU SCH ×2 (09:13→21:13)
--- NOTE | 2017-09-24 09:50 | PN ---
Teaching Attending Note Name of Resident: Rudy Matthews ATTENDING PHYSICIAN STATEMENT I saw and evaluated the patient. I reviewed the resident's note and discussed the case with the resident. I agree with the resident's findings and plan as documented. SUBJECTIVE: no fever or chills . no abd pain, no N/V , no melena . no events over night OBJECTIVE: NAD. MMM CV: RRR, 2/6 SM at RUSB. Lungs: CTAB Ext: no edema or erythema. R BKA with clean stump with no skin breakdown Abd: soft, NT, ND , NL BS ASSESSMENT AND PLAN: 87 y/o lady with h/o dementia , CAD, PVD, R BKA, DM , HTN, And SVt who was brought form [place] with coffee ground emesis . 1- Upper GI bleed. with acute blood loss anemia. S/P 2 units of RBCs EGD with erosive gastritis . likely the source of bleed -switch to po PPI -will d/w GI if safe to start plavix 2- NSTEMI:trop trended down - cont BB . - cont lisinopril - will add plavix if OK with GI - cont tele - cont lipitor 40 mg HS - will d/w Card the timing of stress test in [place] out patient 3- TRAY: resolved. off IVF . oral hydration 4- h/o HTN: cont BB and lisinopril 5- H/o PVD: hold ASA Dispo : if stress test to be done as out pt , will dc to [place] today
[2017-09-24] MEDS ORDERED: MAGNESIUM OXIDE 400 MG TABLET (FP) PO ONE (10:15)
--- NOTE | 2017-09-24 12:03 | PN ---
Progress Note (short form) - Note Progress Note: Dr. Beltrán covering for Dr. Mccormick: Asked to comment re use of antipletelet therapy Reviewed images from procedure: report was not available. Discussed W/ Dr. Mccormick. Only erosive gastritis found No absolute contraindication to Plavix if cardiology feels stongly about resuming antipletelet therapy Changed to PO protonix. Can given give Plavix in AM and Protonix in PM
--- NOTE | 2017-09-24 16:02 | PN ---
Physical Exam: SUBJECTIVE: Patient seen and examined at bedside. No new complaints. Patient feels well. OBJECTIVE: Vital Signs Period Temp Pulse Resp BP Sys/Cabral Pulse Ox Last 24 Hr 97.6 F-98.2 F 62-102 16-20 100-162/45-72 98-99 GENERAL: The patient is awake, alert, oriented x1 , in no acute distress. HEAD: Normal with no signs of trauma. NECK: Trachea midline, full range of motion, supple. LUNGS: Breath sounds equal, clear to auscultation bilaterally, no wheezes, no crackles, no accessory muscle use. HEART: Regular rate and rhythm, S1, S2 without murmur, rub or gallop. ABDOMEN: Soft, nontender, nondistended, normoactive bowel sounds, no guarding, no rebound, no hepatosplenomegaly, no masses. EXTREMITIES: 2+ pulses, warm, well-perfused, no edema. NEUROLOGICAL: Cranial nerves II through X grossly intact. Normal speech, gait not observed. SKIN: Warm, dry, normal turgor, no rashes or lesions noted Laboratory Results - last 24 hr 09/21/17 09/24/17 09/24/17 00:35 06:30 06:30 WBC 9.2 D RBC 4.85 Hgb 14.0 D Hct 40.6 MCV 83.8 MCH 28.9 MCHC 34.5 RDW 15.2 Plt Count 235 MPV 8.9 Neutrophils % 67.3 Lymphocytes % 20.8 D Monocytes % 8.3 Eosinophils % 3.1 Basophils % 0.5 Sodium 139 Potassium 4.1 Chloride 106 Carbon Dioxide 25 Anion Gap 8 BUN 8 Creatinine 0.8 Creat Clearance w eGFR > 60 Random Glucose 85 Calcium 8.2 L Phosphorus 2.5 Magnesium 1.6 L Total Bilirubin 0.7 D AST 24 ALT 20 Alkaline Phosphatase 68 Total Protein 6.7 Albumin 3.3 L Blood Type O POSITIVE Antibody Screen Negative Crossmatch See Detail Active Medications Generic Name Dose Route Start Last Admin Trade Name Freq PRN Reason Stop Dose Admin Atorvastatin Calcium 40 mg 09/23/17 22:00 09/23/17 21:18 Lipitor - PO 40 mg HS JAIRON Administration Brimonidine Tartrate 1 drop 09/23/17 22:00 09/24/17 09:13 Alphagan 0.2% - OU 1 drop BID JAIRON Administration Insulin Aspart 1 vial 09/24/17 16:30 Novolog Vial Sliding Scale - SQ BIDAC [facility] Protocol Latanoprost 1 drop 09/23/17 22:00 09/23/17 21:17 Xalatan 0.005% Eye Drops - OU 1 drop HS JAIRON Administration Lisinopril 20 mg 09/24/17 10:00 09/24/17 09:13 Prinivil PO 20 mg DAILY JAIRON Administration Metoprolol Succinate 12.5 mg 09/24/17 10:00 09/24/17 09:13 Toprol Xl - PO 12.5 mg DAILY JAIRON Administration Pantoprazole Sodium 40 mg 09/25/17 22:00 Protonix - PO DAILY [facility] ASSESSMENT/PLAN: The patient is an 87 yo F with a PMHx HTN, DM, PVD, s/p R BKA, CAD, dementia who is admistted to the ICU for UGIB #Troponemia 2/2 demand ischemia -Tropes .2 -> .15 -> 4.18 -> 6.16 -> 5.92 -> 4.07 -Per cardio, stress testing typically not indicated directly after recent KS. -Per GI, bleeding ruled out and can administer Plavix in the AM and Protonix in the PM. #Upper GI bleed and abdominal distension -Patient wihtout episodes of vomiting -s/p EGD which showed erosive gastritis -Hb Stable -protonix 40mg PO HS #HTN/CAD -lisinopril 20mg daily #DM -BGM -ISS -holding home Levemir 26U HS #Hyperkalemia/Magnesium- resolved #SIRS- resolved #TRAY- resolved -avoid nephrotoxins -Nephro consulted #FEN -no fluids indicated -Monitor lytes, replete PRN -NPO #PPX -SCDs while patient bleeding -Protonix 40 po hs #Dispo -admit to tele -Patient scheduled to return to [facility] on Mccormick in the AM pending Cardio clearance Visit type - Emergency Visit Emergency Visit: Yes ED Registration Date: 09/20/17 Care time: The patient presented to the Emergency Department on the above date and was hospitalized for further evaluation of their emergent condition. - New Patient This patient is new to me today: No - Critical Care Critical Care patient: Yes Total Critical Care Time (in minutes): 35 Critical Care Statement: The care of this patient involved high complexity decision making to prevent further life threatening deterioration of the patient 's condition and/or to evaluate & treat vital organ system(s) failure or risk of failure.
[2017-09-24] MEDS: ATORVASTATIN CA 40 MG TABLET (FP) PO SCH (21:12)
[2017-09-24] MEDS: LATANOPROST 0.005% OPHTH SOLN 2.5ML BOTTLE OU SCH (21:12)
--- NOTE | 2017-09-24 22:10 | PN ---
Progress Note (short form) - Note Progress Note: CCM SUBJECTIVE: Patient seen and examined in the ICU. No acute events, was to be d/c to [place] today, no pending cardio clearance. Likely to NH tomorrow. Vital Signs Temp 97.9 F 09/24/17 18:00 Pulse 72 09/24/17 20:00 Resp 18 09/24/17 20:00 BP 149/64 09/24/17 20:00 Pulse Ox 98 09/24/17 21:00 Intake & Output 09/23/17 09/24/17 09/24/17 23:59 11:59 23:59 Intake Total 1240 100 350 Output Total 600 Balance 640 100 350 Weight 58.513 kg 59.024 kg Intake: IV 800 Normal Saline - 1,000 ml 600 @ 50 mls/hr IV ASDIR [facility] Rx#:[id number] Oral 440 100 350 Output: Urine 600 Mondragon 600 Other: Voiding Method Diaper Diaper Diaper # Unmeasured Voids Void 2 2 2 Bowel Movement No Height 5 ft 5 in Body Mass Index (BMI) 21.4 Weight Measurement Method Built in [facility] Active Medications Atorvastatin Calcium (Lipitor -) 40 mg PO HS [facility] Last Admin: 09/24/17 21:12 Dose: 40 mg Brimonidine Tartrate (Alphagan 0.2% -) 1 drop OU BID [facility] Last Admin: 09/24/17 21:13 Dose: 1 drop Clopidogrel Bisulfate (Plavix -) 75 mg PO DAILY [facility] Insulin Aspart (Novolog Vial Sliding Scale -) 1 vial SQ BIDAC [facility] PRN Reason: Protocol Last Admin: 09/24/17 17:16 Dose: 2 units Latanoprost (Xalatan 0.005% Eye Drops -) 1 drop OU [facility] Last Admin: 09/24/17 21:12 Dose: 1 drop Lisinopril (Prinivil) 20 mg PO DAILY [facility] Last Admin: 09/24/17 09:13 Dose: 20 mg Metoprolol Succinate (Toprol Xl -) 12.5 mg PO DAILY [facility] Last Admin: 09/24/17 09:13 Dose: 12.5 mg Pantoprazole Sodium (Protonix -) 40 mg PO DAILY [facility] Gen: INAD, awake , alert Heart: RRR, no m/r/g appreciate Lung: Clear anterior Abd: soft, NT, ND Ext: Right BKA Neuro: no acute focality. CBC, BMP 09/24/17 06:30 09/24/17 06:30 ASSESSMENT AND PLAN: GI Bleed Acute Blood Loss Anemia (?) GI Mass NSTEMI Lactic Acidosis Acute Kidney Injury HTN DM Dementia - Normal transfusion thresholds - PPI - BB, plavix - mechanical DVT prophylaxis - Cardiac Telemetry monitoring - DNR/DNI Tariq GANT
[2017-09-25] MEDS: INSULIN SLIDING SCALE (NOVOLOG) 1 VIAL SQ SCH ×2 (06:25→16:11)
[2017-09-25] MEDS: metoPROLOL SUCCINATE 25 MG TAB.SR.24H (FP) PO SCH (09:32)
[2017-09-25] MEDS: LISINOPRIL 20 MG TABLET (FP) PO SCH (09:33)
[2017-09-25] MEDS: BRIMONIDINE TARTRATE 0.2% OPHTHALMIC 5 ML BOTTLE OU SCH ×2 (09:34→21:19)
[2017-09-25] MEDS: CLOPIDOGREL BISULFATE 75 MG TABLET (FP) PO SCH (09:37)
--- NOTE | 2017-09-25 14:47 | PN ---
Progress Note (short form) - Note Progress Note: Subjective: no fever or chills . no abd pain. no diarrhea , no melena Objective: Vital Signs: Last Vital Signs Temp Pulse Resp BP Pulse Ox 97.3 F L 60 15 148/57 98 09/25/17 14:00 09/25/17 02:00 09/25/17 14:00 09/25/17 14:00 09/25/17 09:00 Laboratory Results - last 24 hr 09/21/17 09/22/17 09/23/17 00:35 22:05 05:50 POC Glucometer 129.30806 122.92349 Hemoglobin A1c % Blood Type O POSITIVE Antibody Screen Negative Crossmatch See Detail 09/23/17 09/23/17 09/23/17 12:34 18:25 21:31 POC Glucometer 141.00966 133.59068 125.45276 Hemoglobin A1c % Blood Type Antibody Screen Crossmatch 09/24/17 09/24/17 09/24/17 05:52 06:30 17:01 POC Glucometer 115.29747 189.23100 Hemoglobin A1c % 6.9 H Blood Type Antibody Screen Crossmatch Physical Exam: NAD. MMM CV: RRR, 2/6 SM at RUSB. Lungs: CTAB Ext: no edema or erythema. R BKA with clean stump with no skin breakdown Abd: soft, NT, ND , NL BS ASSESSMENT AND PLAN: 87 y/o lady with h/o dementia , CAD, PVD, R BKA, DM , HTN, And SVt who was brought form [place] with coffee ground emesis . 1- Upper GI bleed. with acute blood loss anemia.2/2 erosive gastritis - cont PPI in HS - safe form GI standpoint to use plavix 2- NSTEMI: trop trended down - cont BB . - cont lisinopril - plavix - cont tele - cont lipitor 40 mg HS - d/w Dr. Bush. cath as outpt . no need fro stress test . f/u in office 3- TRAY: resolved. off IVF . oral hydration 4- h/o HTN: cont BB and lisinopril 5- H/o PVD: plavix . statin Dispo :pending insurance auth for return to [place] Visit type - Emergency Visit Emergency Visit: Yes ED Registration Date: 09/20/17 Care time: The patient presented to the Emergency Department on the above date and was hospitalized for further evaluation of their emergent condition. - New Patient This patient is new to me today: No - Critical Care Critical Care patient: No
--- NOTE | 2017-09-25 15:09 | PN ---
Progress Note (short form) - Note Progress Note: CCM F/u SUBJECTIVE: Patient seen and examined in the ICU. - awaiting floor bed vs tx to [facility] Vital Signs Temp 97.9 F 09/24/17 18:00 Pulse 72 09/24/17 20:00 Resp 18 09/24/17 20:00 BP 149/64 09/24/17 20:00 Pulse Ox 98 09/24/17 21:00 Intake & Output 09/23/17 09/24/17 09/24/17 23:59 11:59 23:59 Intake Total 1240 100 350 Output Total 600 Balance 640 100 350 Weight 58.513 kg 59.024 kg Intake: IV 800 Normal Saline - 1,000 ml 600 @ 50 mls/hr IV ASDIR [facility] Rx#:[id number] Oral 440 100 350 Output: Urine 600 Mondragon 600 Other: Voiding Method Diaper Diaper Diaper # Unmeasured Voids Void 2 2 2 Bowel Movement No Height 5 ft 5 in Body Mass Index (BMI) 21.4 Weight Measurement Method [facility] in [facility] Active Medications Atorvastatin Calcium (Lipitor -) 40 mg PO HS [facility] Last Admin: 09/24/17 21:12 Dose: 40 mg Brimonidine Tartrate (Alphagan 0.2% -) 1 drop OU BID [facility] Last Admin: 09/25/17 09:34 Dose: 1 drop Clopidogrel Bisulfate (Plavix -) 75 mg PO DAILY [facility] Last Admin: 09/25/17 09:37 Dose: 75 mg Insulin Aspart (Novolog Vial Sliding Scale -) 1 vial SQ BIDAC [facility] PRN Reason: Protocol Last Admin: 09/25/17 06:25 Dose: 2 units Latanoprost (Xalatan 0.005% Eye Drops -) 1 drop OU HS [facility] Last Admin: 09/24/17 21:12 Dose: 1 drop Lisinopril (Prinivil) 20 mg PO DAILY [facility] Last Admin: 09/25/17 09:33 Dose: 20 mg Metoprolol Succinate (Toprol Xl -) 12.5 mg PO DAILY [facility] Last Admin: 09/25/17 09:32 Dose: 12.5 mg Pantoprazole Sodium (Protonix -) 40 mg PO [facility] 0 mg PO DAILY [facility] Gen: INAD, awake , alert Heart: RRR, no m/r/g appreciate Lung: Clear anterior Abd: soft, NT, ND Ext: Right BKA Neuro: no acute focality. CBCD WBC 9.2 K/mm3 (4.0-10.0) D 09/24/17 06:30 RBC 4.85 M/mm3 (3.60-5.2) 09/24/17 06:30 Hgb 14.0 GM/dL (10.7-15.3) D 09/24/17 06:30 Hct 40.6 % (32.4-45.2) 09/24/17 06:30 MCV 83.8 fl (80-96) 09/24/17 06:30 MCHC 34.5 g/dl (32.0-36.0) 09/24/17 06:30 RDW 15.2 % (11.6-15.6) 09/24/17 06:30 Plt Count 235 K/MM3 (134-434) 09/24/17 06:30 MPV 8.9 fl (7.5-11.1) 09/24/17 06:30 CMP Sodium 139 mmol/L (136-145) 09/24/17 06:30 Potassium 4.1 mmol/L (3.5-5.1) 09/24/17 06:30 Chloride 106 mmol/L (98-107) 09/24/17 06:30 Carbon Dioxide 25 mmol/L (21-32) 09/24/17 06:30 Anion Gap 8 (8-16) 09/24/17 06:30 BUN 8 mg/dL (7-18) 09/24/17 06:30 Creatinine 0.8 mg/dL (0.55-1.02) 09/24/17 06:30 Creat Clearance w eGFR > 60 (>60) 09/24/17 06:30 Calcium 8.2 mg/dL (8.5-10.1) L 09/24/17 06:30 Total Bilirubin 0.7 mg/dL (0.2-1.0) D 09/24/17 06:30 AST 24 U/L (15-37) 09/24/17 06:30 ALT 20 U/L (12-78) 09/24/17 06:30 Alkaline Phosphatase 68 U/L (45-117) 09/24/17 06:30 Total Protein 6.7 g/dl (6.4-8.2) 09/24/17 06:30 Albumin 3.3 g/dl (3.4-5.0) L 09/24/17 06:30 ASSESSMENT AND PLAN: GI Bleed Acute Blood Loss Anemia (?) GI Mass NSTEMI Lactic Acidosis Acute Kidney Injury HTN DM Dementia - Normal transfusion thresholds - PPI - BB, plavix - mechanical DVT prophylaxis - Cardiac Telemetry monitoring - DNR/DNI Pending tx to NH, awaiting SHIREEN for tx to NH [place] ACNP
--- NOTE | 2017-09-25 17:09 | DS ---
Physical Examination Vital Signs: Vital Signs Temperature 97.3 F L 09/25/17 14:00 Pulse Rate 71 09/25/17 16:00 Respiratory Rate 15 09/25/17 16:00 Blood Pressure 150/53 09/25/17 16:00 O2 Sat by Pulse Oximetry (%) 98 09/25/17 09:00 Findings/Remarks: No fever or chills, no abd pain , no melena . PE: NAD. MMM CV: RRR, 2/6 SM at RUSB. Lungs: CTAB Ext: no edema or erythema. R BKA with clean stump with no skin breakdown Abd: soft, NT, ND , NL BS Labs: CBC, BMP 09/24/17 06:30 09/24/17 06:30 Discharge Summary Reason For Visit: LACTIC ACIDOSIS/UPPER GI HEMORRHAGE Current Active Problems Erosive gastritis (Acute) NSTEMI (non-ST elevated myocardial infarction) (Acute) Upper gastrointestinal hemorrhage (Acute) Hospital Course: 87 y/o lady with h/o dementia , CAD, PVD, R BKA, DM , HTN, And SVT who was brought form [place] with coffee ground emesis . on admission she was hemodynamically stable. Her Hb dropped to 7.6 and received [address] of abd did not show significant pathology. she was seen by GI and EGD was performed to show erosive gastritis . after PPI gtt was used, she was switched to po PPI to be used in HS ( and plavix in am ) During her hospital stay she developed hypertroponemia to 6 without CP. she was diagnosed with NSTEMi due to demand ischemia from anemia. she remained hymodynamically stable and was started on BB , and statin. she was continued on lower dose of lisinopril ( 20 instead of 30. her home norvasc was d/c . she was seen by card and started on plavix instead of ASA. Stress test was not deemed necessary by card, and She will need cath after dc. Of note, echo showed mildly reduced EF. On admission , she had a mild TRAY with Cr of 1.9 and was corrected with IVF. ACEI was resumed. For DM, she did not require much coverage with SSI in house. A1c came back 6.9. (her home lantus and SSI ) were Dc and she was started on januvia. Dispo : back to [facility] Condition: improved F/U: GI, card Time spent: 40 min Condition: Improved - Instructions Diet, Activity, Other Instructions: You were admitted for the treatment of some bleeding in your stomach. You had an endoscopy which showed irritation in your stomach ( erosive gastritis ) , but no more bleeding.. - please follow with Dr. Mccormick in 1 week ( GI ) - follow with Dr. Bush ( jig inspector ) for [place] follow up ( need heart cath ) . - changes to previous meds start protonix in evening metoprolol started. plavix started in am januvia started for diabetes. lipitor started Aspirin stopped norvasc stopped tramadol stopped insulin stopped ( A1c 6.9 ) lisinopril decreased to 20 mg - report any bleeding . - need CBC, BMP in 1 week - monitor blood pressure . if needed lisinopril can be adjusted . Referrals: Leo Mccormick MD [Staff Physician] - 2 Weeks Donovan Bush MD [Staff Physician] - 1 Week Disposition: [facility] - Home Medications Comprehensive Discharge Medication List: Ambulatory Orders Acetaminophen [Tylenol .Extra-Strength -] 1,000 mg PO Q8H PRN #0 tablet Brimonidine Tartrate [Alphagan 0.2% -] 1 drop OU BID #0 drops 02/04/14 Latanoprost 0.005% Eye Drops [Xalatan 0.005% Eye Drops -] 1 drop OU HS #0 drops 02/04/14 Atorvastatin Ca [Lipitor] 40 mg PO HS tablet 09/25/17 Cholecalciferol (Vitamin D3) [Vitamin D -] 50,000 unit PO WEEKLY #0 unit Clopidogrel Bisulfate [Plavix -] 75 mg PO DAILY tablet 09/25/17 Docusate Sodium [Colace] 100 mg PO BID #0 cap 09/25/17 Gabapentin [Neurontin -] 100 mg PO HS #0 cap 09/25/17 Lisinopril [Prinivil] 20 mg PO DAILY #0 tab 09/25/17 Magnesium Hydrox 2400MG/30Ml [Milk of Magnesia -] 30 ml PO DAILY PRN #0 ml 09/25 Metoprolol Succinate [Toprol XL -] 12.5 mg PO DAILY tab.sr.24h 09/25/17 Mirtazapine [Remeron -] 30 mg PO HS #0 tab 09/25/17 Pantoprazole Sodium [Protonix -] 40 mg PO HS tablet.ec 09/25/17 Polyethylene Glycol 3350 [Miralax 119 gm Btl -] 17 gm PO BID PRN #0 bottle 09/25 Sennosides [Senna] 2 tab PO HS #0 tab 09/25/17 Sitagliptin Phosphate [Januvia] 100 mg PO DAILY #30 tablet 09/25/17 This patient is new to me today: Yes Date on this admission: 09/25/17 Emergency Visit: No Critical Care patient: No - Discharge Referral Referred to [facility] No
[2017-09-25] MEDS: ATORVASTATIN CA 40 MG TABLET (FP) PO SCH (21:18)
[2017-09-25] MEDS: LATANOPROST 0.005% OPHTH SOLN 2.5ML BOTTLE OU SCH (21:19)
[2017-09-25] MEDS ORDERED: PANTOPRAZOLE 40 MG TABLET (FP) PO SCH ×2 (22:00)
[2017-09-26] MEDS: BRIMONIDINE TARTRATE 0.2% OPHTHALMIC 5 ML BOTTLE OU SCH (09:34)
[2017-09-26] MEDS: metoPROLOL SUCCINATE 25 MG TAB.SR.24H (FP) PO SCH (09:34)
[2017-09-26] MEDS: CLOPIDOGREL BISULFATE 75 MG TABLET (FP) PO SCH (09:35)
[2017-09-26] MEDS: LISINOPRIL 20 MG TABLET (FP) PO SCH (09:35)
[2017-09-26] MEDS: INSULIN SLIDING SCALE (NOVOLOG) 1 VIAL SQ SCH (11:31)
[2017-09-26 11:38] VITALS: TEMP 97.7
--- NOTE | 2017-09-26 11:50 | PN ---
Physical Exam: SUBJECTIVE: Patient seen and examined No acute events overnight. Pt denies headache, SOB, chest pain, cough, abdominal pain, n/v/d/c, and dysuria. OBJECTIVE: Vital Signs Period Temp Pulse Resp BP Sys/Cabral Pulse Ox Last 24 Hr 97.3 F-98.9 F 65-91 10-18 106-159/44-96 99-99 GENERAL: The patient is awake, alert, oriented x1 (name), in no acute distress. HEENT: NC, AT LUNGS: CTAB, no rales or rhonchi HEART: Regular rate and rhythm, S1, S2 without murmur, rub or gallop. ABDOMEN: Soft, nontender, nondistended, normoactive bowel sounds, no guarding, no rebound, no hepatosplenomegaly, no masses. EXTREMITIES: 2+ pulses, warm, well-perfused, no edema. NEUROLOGICAL: Cranial nerves II through X grossly intact. Normal speech, gait not observed. Laboratory Results - last 24 hr 09/25/17 09/25/17 06:24 16:07 POC Glucometer 155.65774 148.19850 Active Medications Generic Name Dose Route Start Last Admin Trade Name Abranq PRN Reason Stop Dose Admin Atorvastatin Calcium 40 mg 09/23/17 22:00 09/25/17 21:18 Lipitor - PO 40 mg HS JAIRON Administration Brimonidine Tartrate 1 drop 09/23/17 22:00 09/26/17 09:34 Alphagan 0.2% - OU 1 drop BID JAIRON Administration Clopidogrel Bisulfate 75 mg 09/25/17 10:00 09/26/17 09:35 Plavix - PO 75 mg DAILY JAIRON Administration Insulin Aspart 1 vial 09/24/17 16:30 09/26/17 11:31 Novolog Vial Sliding Scale - SQ Not Given [facility] Protocol Latanoprost 1 drop 09/23/17 22:00 09/25/17 21:19 Xalatan 0.005% Eye Drops - OU 1 drop HS JAIRON Administration Lisinopril 20 mg 09/24/17 10:00 09/26/17 09:35 Prinivil PO 20 mg DAILY JAIRON Administration Metoprolol Succinate 12.5 mg 09/24/17 10:00 09/26/17 09:34 Toprol Xl - PO 12.5 mg DAILY JAIRON Administration Pantoprazole Sodium 40 mg 09/25/17 22:00 05/06/18 21:18 Protonix - PO 40 mg HS JAIRON Administration ASSESSMENT/PLAN: 87F with a PMHx of HTN, DM, PVD, s/p R BKA, CAD, dementia, admitted to ICU for UGIB, found to have erosive gastritis. CV #Troponinemia 2/2 NSTEMI -management per cards. continue atorvastain and plavix and metoprolol #HTN/CAD -lisinopril 20mg daily and metoprolol GI #Upper GI bleed and abdominal distension -s/p EGD which showed erosive gastritis -Hb stable -protonix 40mg PO HS #DM -BGM -ISS #TRAY- resolved -avoid nephrotoxins -nephro on board FEN/ppx -po fluids -no labs ordered for today -sodium controlled diet -SCDs -Protonix 40 po hs Dispo -stable for discharge. Awaiting transportation back to [place]. Case discussed with attending, Dr. Kapoor. -Chalo Atkinson MD PGY1 Visit type - Emergency Visit Emergency Visit: Yes ED Registration Date: 09/20/17 Care time: The patient presented to the Emergency Department on the above date and was hospitalized for further evaluation of their emergent condition. - New Patient This patient is new to me today: No - Critical Care Critical Care patient: Yes Total Critical Care Time (in minutes): 35 Critical Care Statement: The care of this patient involved high complexity decision making to prevent further life threatening deterioration of the patient 's condition and/or to evaluate & treat vital organ system(s) failure or risk of failure.
[2017-09-26 12:24] VITALS: BP 134/46; PULSE 64
--- NOTE | 2017-09-26 12:40 | PN ---
Progress Note, Physician History of Present Illness: On Plavix and Protonix. No stigmata of active gastrointestinal bleed. Not in distress. No nausea, vomiting reported. - Current Medication List Current Medications: Active Medications Atorvastatin Calcium (Lipitor -) 40 mg PO HS [facility] Last Admin: 09/25/17 21:18 Dose: 40 mg Brimonidine Tartrate (Alphagan 0.2% -) 1 drop OU BID [facility] Last Admin: 09/26/17 09:34 Dose: 1 drop Clopidogrel Bisulfate (Plavix -) 75 mg PO DAILY [facility] Last Admin: 09/26/17 09:35 Dose: 75 mg Insulin Aspart (Novolog Vial Sliding Scale -) 1 vial SQ BIDAC [facility] PRN Reason: Protocol Last Admin: 09/26/17 11:31 Dose: Not Given Latanoprost (Xalatan 0.005% Eye Drops -) 1 drop OU HS [facility] Last Admin: 09/25/17 21:19 Dose: 1 drop Lisinopril (Prinivil) 20 mg PO DAILY [facility] Last Admin: 09/26/17 09:35 Dose: 20 mg Metoprolol Succinate (Toprol Xl -) 12.5 mg PO DAILY [facility] Last Admin: 09/26/17 09:34 Dose: 12.5 mg Pantoprazole Sodium (Protonix -) 40 mg PO HS [facility] Last Admin: 09/25/17 21:18 Dose: 40 mg - Objective Vital Signs: Vital Signs Temperature 97.7 F 09/26/17 10:00 Pulse Rate 64 09/26/17 12:00 Respiratory Rate 13 09/26/17 12:00 Blood Pressure 134/46 09/26/17 12:00 O2 Sat by Pulse Oximetry (%) 99 09/26/17 08:19 Constitutional: Yes: No Distress, Calm Eyes: Yes: Conjunctiva Clear HENT: Yes: Atraumatic Neck: Yes: Supple Neurological: Yes: Alert Labs: CBC, BMP 09/24/17 06:30 09/24/17 06:30 INR, PTT INR 1.22 (0.82-1.09) H 09/23/17 05:40 Laboratory Last Values WBC 9.2 K/mm3 (4.0-10.0) D 09/24/17 06:30 RBC 4.85 M/mm3 (3.60-5.2) 09/24/17 06:30 Hgb 14.0 GM/dL (10.7-15.3) D 09/24/17 06:30 Hct 40.6 % (32.4-45.2) 09/24/17 06:30 MCV 83.8 fl (80-96) 09/24/17 06:30 MCH 28.9 pg (25.7-33.7) 09/24/17 06:30 MCHC 34.5 g/dl (32.0-36.0) 09/24/17 06:30 RDW 15.2 % (11.6-15.6) 09/24/17 06:30 Plt Count 235 K/MM3 (134-434) 09/24/17 06:30 MPV 8.9 fl (7.5-11.1) 09/24/17 06:30 Neutrophils % 67.3 % (42.8-82.8) 09/24/17 06:30 Lymphocytes % 20.8 % (8-40) D 09/24/17 06:30 Monocytes % 8.3 % (3.8-10.2) 09/24/17 06:30 Eosinophils % 3.1 % (0-4.5) 09/24/17 06:30 Basophils % 0.5 % (0-2.0) 09/24/17 06:30 PT with INR 13.80 SEC (9.7-13.0) H 09/23/17 05:40 INR 1.22 (0.82-1.09) H 09/23/17 05:40 PTT (Actin FS) 36.2 SECONDS (26.9-34.4) H 09/23/17 05:40 Sodium 139 mmol/L (136-145) 09/24/17 06:30 Potassium 4.1 mmol/L (3.5-5.1) 09/24/17 06:30 Chloride 106 mmol/L (98-107) 09/24/17 06:30 Carbon Dioxide 25 mmol/L (21-32) 09/24/17 06:30 Anion Gap 8 (8-16) 09/24/17 06:30 BUN 8 mg/dL (7-18) 09/24/17 06:30 Creatinine 0.8 mg/dL (0.55-1.02) 09/24/17 06:30 Creat Clearance w eGFR > 60 (>60) 09/24/17 06:30 POC Glucometer 148.03396 UNITS (80-120) 09/25/17 16:07 Random Glucose 85 mg/dL (74-106) 09/24/17 06:30 Hemoglobin A1c % 6.9 % (4.8-6.0) H 09/24/17 06:30 Lactic Acid 1.0 mmol/L (0.0-2.0) 09/21/17 00:35 Calcium 8.2 mg/dL (8.5-10.1) L 09/24/17 06:30 Phosphorus 2.5 mg/dL (2.5-4.9) 09/24/17 06:30 Magnesium 1.6 mg/dL (1.8-2.4) L 09/24/17 06:30 Total Bilirubin 0.7 mg/dL (0.2-1.0) D 09/24/17 06:30 AST 24 U/L (15-37) 09/24/17 06:30 ALT 20 U/L (12-78) 09/24/17 06:30 Alkaline Phosphatase 68 U/L (45-117) 09/24/17 06:30 Creatine Kinase 93 IU/L (26-192) 09/23/17 05:40 Troponin I 4.07 ng/ml (0.00-0.05) H* 09/23/17 05:40 Total Protein 6.7 g/dl (6.4-8.2) 09/24/17 06:30 Albumin 3.3 g/dl (3.4-5.0) L 09/24/17 06:30 Triglycerides 147 mg/dL (35-160) 09/22/17 05:52 Cholesterol 145 mg/dL (50-200) 09/22/17 05:52 Total LDL Cholesterol 99 mg/dL (5-100) 09/22/17 05:52 HDL Cholesterol 29 mg/dL (40-60) L 09/22/17 05:52 Urine Color Sanna 09/20/17 17:30 Urine Appearance Cloudy 09/20/17 17:30 Urine pH 5.0 (5.0-8.0) 09/20/17 17:30 Ur Specific [place] 1.024 (1.001-1.035) 09/20/17 17:30 Urine Protein Negative (NEGATIVE) 09/20/17 17:30 Urine Glucose (UA) Negative (NEGATIVE) 09/20/17 17:30 Urine Ketones Trace (NEGATIVE) H 09/20/17 17:30 Urine Blood Negative (NEGATIVE) 09/20/17 17:30 Urine Nitrite Negative (NEGATIVE) 09/20/17 17:30 Urine Bilirubin Negative (<2.0 mg/dL) 09/20/17 17:30 Urine Urobilinogen Negative mg/dL (0.2-1.0) 09/20/17 17:30 Ur Leukocyte Esterase Negative (NEGATIVE) 09/20/17 17:30 Ur Random Sodium 44 MMOL/L 09/21/17 00:35 Ur Random Potassium 60.7 MMOL/L 09/21/17 00:35 Ur Random Chloride 61 MMOL/L 09/21/17 00:35 Urine Creatinine 110.0 mg/dL (20-320) 09/21/17 00:35 Stool Occult Blood Negative (NEGATIVE) 09/20/17 17:20 Blood Type O POSITIVE 09/21/17 00:35 Antibody Screen Negative 09/21/17 00:35 Crossmatch See Detail 09/21/17 00:35 Problem List - Problems (1) Upper gastrointestinal hemorrhage Code(s): K92.2 - GASTROINTESTINAL HEMORRHAGE, UNSPECIFIED Assessment/Plan No stigmata of ongoing gastrointestinal bleeding. Continue care as per primary /ICU teams. Will continue to monitor.
--- NOTE | 2017-09-26 12:50 | PN ---
Teaching Attending Note Name of Resident: Chalo Atkinson ATTENDING PHYSICIAN STATEMENT I saw and evaluated the patient. I reviewed the resident's note and discussed the case with the resident. I agree with the resident's findings and plan as documented. SUBJECTIVE: Patient seen and examined in the ICU. Feels overall better. Intake & Output 09/23/17 09/24/17 09/25/17 09/26/17 23:59 23:59 23:59 23:59 Intake Total 1590 650 540 Output Total 1200 Balance 390 650 540 Weight 129 lb 130 lb 2 oz 130 lb 4 oz 127 lb 12.8 oz Last Vital Signs Temp Pulse Resp BP Pulse Ox 97.7 F 64 13 134/46 99 09/26/17 10:00 09/26/17 12:00 09/26/17 12:00 09/26/17 12:00 09/26/17 08:19 Active Medications Atorvastatin Calcium (Lipitor -) 40 mg PO HS [facility] Last Admin: 09/25/17 21:18 Dose: 40 mg Brimonidine Tartrate (Alphagan 0.2% -) 1 drop OU BID [facility] Last Admin: 09/26/17 09:34 Dose: 1 drop Clopidogrel Bisulfate (Plavix -) 75 mg PO DAILY [facility] Last Admin: 09/26/17 09:35 Dose: 75 mg Insulin Aspart (Novolog Vial Sliding Scale -) 1 vial SQ BIDAC [facility] PRN Reason: Protocol Last Admin: 09/26/17 11:31 Dose: Not Given Latanoprost (Xalatan 0.005% Eye Drops -) 1 drop OU HS [facility] Last Admin: 09/25/17 21:19 Dose: 1 drop Lisinopril (Prinivil) 20 mg PO DAILY [facility] Last Admin: 09/26/17 09:35 Dose: 20 mg Metoprolol Succinate (Toprol Xl -) 12.5 mg PO DAILY [facility] Last Admin: 09/26/17 09:34 Dose: 12.5 mg Pantoprazole Sodium (Protonix -) 40 mg PO [facility] Last Admin: 09/25/17 21:18 Dose: 40 mg Gen: NAD, awake , alert Heart: RRR, no m/r/g appreciate Lung: Clear anterior Abd: soft, NT, ND Ext: Right BKA Neuro: non-focal Laboratory Results - last 24 hr 09/25/17 09/25/17 06:24 16:07 POC Glucometer 155.55027 148.62808 ASSESSMENT AND PLAN: GI Bleed Acute Blood Loss Anemia (?) GI Mass NSTEMI Lactic Acidosis Acute Kidney Injury HTN DM Dementia - D/C planning to SNF - BB, plavix Dr Kapoor
--- NOTE | 2017-09-27 10:33 | PATH ---
Surgical Pathology Report Patient Name: AVRIL MIRELES [facility]. Rec. #: [id number] /Age/Gender: 1930 (Age: 87) / F Account: [id number] Location: ICU [employer] Taken: 09/23/2017 Received: 09/23/2017 Reported: 09/27/2017 Physicians: Leo Mccormick M.D. Specimen(s) Received BX ANTRUM/BODY Clinical History Anemia Postoperative diagnosis: Erosive gastritis Final Diagnosis ANTRUM/BODY, BIOPSY: GASTRIC MUCOSA WITH MODERATE TO SEVERE ACUTE AND CHRONIC INFLAMMATION. POSITIVE FOR INTESTINAL METAPLASIA. IMMUNOSTAIN IS NEGATIVE FOR H. PYLORI ORGANISMS. Electronically Signed Akira Jackson M.D. Gross Description Received in formalin, labeled "biopsy antrum/body" are 3 stubbs, irregular portions of soft tissue ranging from 0.2-0.5 bili.cm. in greatest dimension. The specimens are submitted in toto in one cassette. 09/23/201709/23/2017
== END 2017-09-26 14:31 | DRG 377 ==
LOC: JER 16:40 → JICU 19:43
PROVIDERS: ADMIT Internal Medicine; ATTEND Internal Medicine
PROC: 30233N1 Transfusion of Nonautologous Red Blood Cells into Peripheral Vein, Percutaneous Approach (ICD-10-PCS; 2017-09-21)
PROC: 0DD68ZX Extraction of Stomach, Via Natural or Artificial Opening Endoscopic, Diagnostic (ICD-10-PCS; principal; 2017-09-23 13:15)
DX: K92.2 Gastrointestinal hemorrhage, unspecified (principal); I21.4 Non-ST elevation (NSTEMI) myocardial infarction; D62 Acute posthemorrhagic anemia; N17.9 Acute kidney failure, unspecified; E87.2 Acidosis; F03.90 Unspecified dementia, unspecified severity, without behavioral disturbance, psychotic disturbance, mood disturbance, and anxiety; E87.5 Hyperkalemia; I12.9 Hypertensive chronic kidney disease with stage 1 through stage 4 chronic kidney disease, or unspecified chronic kidney disease; E11.22 Type 2 diabetes mellitus with diabetic chronic kidney disease; N18.9 Chronic kidney disease, unspecified; I25.10 Atherosclerotic heart disease of native coronary artery without angina pectoris; K29.60 Other gastritis without bleeding
CPT/HCPCS: 36415; 36430; 71045-TC-FY; 74018-TC-FY; 74176-TC; 80048; 80053; 80061; 81003; 82272; 82436; 82550; 82570; 82962; 83036; 83605; 83721; 83735; 84100; 84133; 84300; 84484; 85025; 85027; 85610; 85730; 86850; 86900; 86901; 86922; 87040; 87086; 87186; 88305-TC; 93005; 93010; 93306-TC; 99285-25; J7030; P9038; P9058

== ENCOUNTER 2017-11-27 01:16 | Inpatient (IN) | payer OTHER ==
--- NOTE | 2017-11-27 02:58 | PDOC ---
Attending Attestation - ED Attending Attestation I have performed the following: I have examined & evaluated the patient, The case was reviewed & discussed with the resident - HPI HPI: 11/27/17 06:32 The patient is an 87 year old female with a significant past medical history of htn, pvd s/p right bka, cad, diabetes, svt, and dementia from [facility] for evaluation of emesis. As per staff, the patient had multiple episodes of coffee ground emesis. The patient denies chest pain, shortness of breath, cough, chills, constipation , and diarrhea. Allergies: NKDA Social History: No reported alcohol, cigarette, or drug use. - Physicial Exam PE: I agree with resident's findings. <Tomasa Eden - Last Filed: 11/27/17 06:57> - Resident Resident Name: Marvin Segura - Medical Decision Making 11/28/17 04:37 Pt comes with coffee ground emesis and weakness. She will be admitted to the hospitalists for workup and GI consult. <Cyndy Mueller - Last Filed: 11/28/17 04:38> Attestations - Attestations Documentation prepared by Tomasa Eden, acting as medical data entry clerk for Cyndy Mueller MD. <Tomasa Eden - Last Filed: 11/27/17 06:57>
--- NOTE | 2017-11-27 03:14 | PDOC ---
History of Present Illness - General Chief Complaint: Coffee Ground Emesis Stated Complaint: GI BLEEDING Time Seen by Provider: 11/27/17 02:53 - History of Present Illness Initial Comments: 11/27/17 03:52 The patient is an 87 year old female with a PMH of HTN, diabetes, PVD s/p right BKA, CAD, SVT, and dementia BIBEMS from [facility] after the staff noticed multiple episodes of coffee ground emesis. Patient denies any acute symptoms except for the vomiting. No acute symptoms such as fevers, chills , constipation, diarrhea, chest pain, SOB, or cough 11/27/17 06:09 Previous admission to this hospital in September 2017 for same presentation, was determined to be of erosive gastritis etiology 11/27/17 06:20 Past History - Past Medical History Allergies/Adverse Reactions: Allergies Allergy/AdvReac Type Severity Reaction Status Date / Time No Known Allergies Allergy Verified 09/20/17 17:28 Home Medications: Ambulatory Orders Acetaminophen [Tylenol .Extra-Strength -] 1,000 mg PO Q8H PRN #0 tablet Brimonidine Tartrate [Alphagan 0.2% -] 1 drop OU BID #0 drops 02/04/14 Latanoprost 0.005% Eye Drops [Xalatan 0.005% Eye Drops -] 1 drop OU HS #0 drops 02/04/14 Atorvastatin Ca [Lipitor] 40 mg PO HS tablet 09/25/17 Cholecalciferol (Vitamin D3) [Vitamin D -] 50,000 unit PO WEEKLY #0 unit Clopidogrel Bisulfate [Plavix -] 75 mg PO DAILY tablet 09/25/17 Docusate Sodium [Colace] 100 mg PO BID #0 cap 09/25/17 Gabapentin [Neurontin -] 100 mg PO HS #0 cap 09/25/17 Lisinopril [Prinivil] 20 mg PO DAILY #0 tab 09/25/17 Magnesium Hydrox 2400MG/30Ml [Milk of Magnesia -] 30 ml PO DAILY PRN #0 ml 09/25 Metoprolol Succinate [Toprol XL -] 12.5 mg PO DAILY tab.sr.24h 09/25/17 Mirtazapine [Remeron -] 30 mg PO HS #0 tab 09/25/17 Pantoprazole Sodium [Protonix -] 40 mg PO HS tablet.ec 09/25/17 Polyethylene Glycol 3350 [Miralax 119 gm Btl -] 17 gm PO BID PRN #0 bottle 09/25 Sennosides [Senna] 2 tab PO HS #0 tab 09/25/17 Sitagliptin Phosphate [Januvia] 100 mg PO DAILY #30 tablet 09/25/17 Anemia: No Asthma: No Cancer: No Cardiac Disorders: No CVA: No COPD: No CHF: No Dementia: Yes Diabetes: Yes GI Disorders: No Disorders: No HTN: Yes Hypercholesterolemia: Yes Liver Disease: No Psychiatric Problems: Yes (major depressive disorder,) Seizures: No Thyroid Disease: No - Surgical History Abdominal Surgery: No Appendectomy: No Cardiac Surgery: No Cholecystectomy: No Lung Surgery: No Neurologic Surgery: No Orthopedic Surgery: No - Suicide/Smoking/Psychosocial Hx Smoking History: Never smoked Have you smoked in the past 12 months: No Information on smoking cessation initiated: No Hx Alcohol Use: No Drug/Substance Use Hx: No Substance Use Type: None Review of Systems - Review of Systems Able to Perform ROS?: No (dementia) *Physical Exam - Vital Signs Last Vital Signs Temp Pulse Resp BP Pulse Ox 97.2 F L 98 H 20 143/107 100 11/27/17 01:28 11/27/17 01:28 11/27/17 01:28 11/27/17 01:28 11/27/17 01:28 - Physical Exam General Appearance: Yes: Disheveled, Obese HEENT: positive: EOMI, CHALO Respiratory/Chest: positive: Lungs Clear, Normal Breath Sounds. negative: Chest Tender, Respiratory Distress Cardiovascular: positive: Regular Rhythm, S1, S2, Tachycardia Gastrointestinal/Abdominal: positive: Normal Bowel Sounds, Flat, Soft, Distended. negative: Tender Musculoskeletal: positive: Normal Inspection ED Treatment Course - LABORATORY CBC & Chemistry Diagram: 11/27/17 02:50 11/27/17 02:50 Medical Decision Making - Medical Decision Making 11/27/17 06:00 No documentation from [place] found. This presentation is similar to last admission. Will evaluate for anemia and extend of bleed. will check basic labs, EKG, CXR 11/27/17 06:05 Glucose 466. Starting IV fluids. 11/27/17 07:47 Tried to admit patient to Dr. Amato who refused the patient. Patient signed out to Dr. Stallworth *DC/Admit/Observation/Transfer Diagnosis at time of Disposition: Erosive gastritis, Upper gastrointestinal hemorrhage - Discharge Dispostion Condition at time of disposition: Stable Decision to Admit order: Yes - Referrals - Patient Instructions - Post Discharge Activity
[2017-11-27 03:47] LABS: BASO % 0.5 % (0-2.0); EOS % 0.2 % (0-4.5); HEMATOCRIT 29.3 % (32.4-45.2); HEMOGLOBIN 9.7 GM/dL (10.7-15.3); LYMPH % 11.1 % (8-40); MCH 27.5 pg (25.7-33.7); MEAN CELL VOLUME 83.3 fl (80-96); MEAN PLT VOLUME 8.9 fl (7.5-11.1); MONO % 3.2 % (3.8-10.2); PLATELET COUNT 262 K/MM3 (134-434); RBC 3.52 M/mm3 (3.60-5.2); RDW 14.3 % (11.6-15.6); WHITE BLOOD COUNT 11.9 K/mm3 (4.0-10.0)
[2017-11-27 04:02] LABS: INR 1.19 (0.82-1.09); PROTHROMBIN TIME (PATIENT) 13.5 SEC (9.7-13.0)
[2017-11-27 04:05] LABS: ACTIVATED PTT 37.8 SECONDS (25.2-36.5)
[2017-11-27 04:24] LABS: ALBUMIN 3.2 g/dl (3.4-5.0); ANION GAP 7 (8-16); BILIRUBIN,TOTAL 0.3 mg/dL (0.2-1.0); BLOOD UREA NITROGEN 32 mg/dL (7-18); CALCIUM 8.9 mg/dL (8.5-10.1); CHLORIDE 99 mmol/L (98-107); CO2 26 mmol/L (21-32); CREATININE 1.6 mg/dL (0.55-1.02); POTASSIUM 5.1 mmol/L (3.5-5.1); SGOT/AST 13 U/L (15-37); SGPT/ALT 29 U/L (12-78); SODIUM 132 mmol/L (136-145); TOT PROT 6.4 g/dl (6.4-8.2)
[2017-11-27 04:25] LABS: ALK PHOS 72 U/L (45-117)
[2017-11-27] MEDS ORDERED: SODIUM CHLORIDE 1,000 ML IV STA (05:00)
[2017-11-27 05:02] LABS: GLUCOSE,RANDOM 466 mg/dL (74-106)
[2017-11-27 07:03] LABS: URINE APPEARANCE CLOUDY; URINE BILIRUBIN NEGATIVE (<2.0 mg/dL); URINE COLOR YELLOW; URINE GLUCOSE (UA) 3+ (NEGATIVE); URINE KETONE NEGATIVE (NEGATIVE); URINE NITRITE NEGATIVE (NEGATIVE); URINE UROBILINOGEN NEGATIVE mg/dL (0.2-1.0)
[2017-11-27 07:12] LABS: URINE LEUK ESTERASE 3+ (NEGATIVE); URINE PROTEIN 1+ (NEGATIVE)
[2017-11-27 07:16] LABS: EPI CELLS RARE /HPF (FEW); URINE BACTERIA MODERATE /hpf (NONE SEEN); URINE HYALINE CAST 37 /lpf; URINE MUCUS RARE; YEAST RARE
[2017-11-27] MEDS ORDERED: INSULIN REGULAR HUMAN 100 UNITS/ML *VIAL IVPUSH ONE (08:22)
[2017-11-27] MEDS ORDERED: INSULIN (NOVOLOG) ASPART 100 UNITS/ML 10ML VIAL ONE (09:24)
--- NOTE | 2017-11-27 09:27 | PDOC ---
*Physical Exam - Vital Signs Last Vital Signs Temp Pulse Resp BP Pulse Ox 97.2 F L 98 H 20 143/107 95 11/27/17 01:28 11/27/17 01:28 11/27/17 01:28 11/27/17 01:28 11/27/17 06:53 Patient's care endorsed to me by Drs. Segura and Ami at the end of their shifts. Patient presented with coffee ground emesis, otherwise has no complaints. On my exam she has mild ttp diffusely of the abdomen, protuberant but no tight. ED Treatment Course - LABORATORY CBC & Chemistry Diagram: 11/27/17 02:50 11/27/17 02:50 - ADDITIONAL ORDERS Additional order review: Laboratory Results 11/27/17 11/27/17 11/27/17 07:45 06:37 05:49 PT with INR INR PTT (Actin FS) Sodium Potassium Chloride Carbon Dioxide Anion Gap BUN Creatinine Creat Clearance w eGFR Random Glucose Calcium Total Bilirubin AST ALT Alkaline Phosphatase Troponin I Total Protein Albumin Urine Color Yellow Urine Appearance Cloudy Urine pH 5.0 Ur Specific [place] 1.018 Urine Protein 1+ H Urine Glucose (UA) 3+ H Urine Ketones Negative Urine Blood Negative Urine Nitrite Negative Urine Bilirubin Negative Urine Urobilinogen Negative Ur Leukocyte Esterase 3+ H Urine WBC (Auto) 95 Urine RBC (Auto) 12 Ur Epithelial Cells Rare Urine Bacteria Moderate Hyaline Casts 37 Urine Mucus Rare Urine Yeast Rare Stool Occult Blood Positive Acetone, Qual Negative L Blood Type Antibody Screen 11/27/17 11/27/17 11/27/17 04:39 02:50 02:50 PT with INR INR PTT (Actin FS) Sodium 132 L Potassium 5.1 Chloride 99 Carbon Dioxide 26 Anion Gap 7 L BUN 32 H Creatinine 1.6 H Creat Clearance w eGFR 30.35 Random Glucose 466 H* Calcium 8.9 Total Bilirubin 0.3 AST 13 L ALT 29 Alkaline Phosphatase 72 Troponin I 0.08 H Total Protein 6.4 Albumin 3.2 L Urine Color Urine Appearance Urine pH Ur Specific [place] Urine Protein Urine Glucose (UA) Urine Ketones Urine Blood Urine Nitrite Urine Bilirubin Urine Urobilinogen Ur Leukocyte Esterase Urine WBC (Auto) Urine RBC (Auto) Ur Epithelial Cells Urine Bacteria Hyaline Casts Urine Mucus Urine Yeast Stool Occult Blood Acetone, Qual Blood Type O POSITIVE Antibody Screen Negative 11/27/17 02:50 PT with INR 13.50 H INR 1.19 H PTT (Actin FS) 37.8 Sodium Potassium Chloride Carbon Dioxide Anion Gap BUN Creatinine Creat Clearance w eGFR Random Glucose Calcium Total Bilirubin AST ALT Alkaline Phosphatase Troponin I Total Protein Albumin Urine Color Urine Appearance Urine pH Ur Specific [place] Urine Protein Urine Glucose (UA) Urine Ketones Urine Blood Urine Nitrite Urine Bilirubin Urine Urobilinogen Ur Leukocyte Esterase Urine WBC (Auto) Urine RBC (Auto) Ur Epithelial Cells Urine Bacteria Hyaline Casts Urine Mucus Urine Yeast Stool Occult Blood Acetone, Qual Blood Type Antibody Screen 11/27/17 02:50 RBC 3.52 L MCV 83.3 MCHC 33.0 RDW 14.3 MPV 8.9 Neutrophils % 85.0 H D Lymphocytes % 11.1 D Monocytes % 3.2 L Eosinophils % 0.2 D Basophils % 0.5 - Medications Given in the ED: ED Medications Discontinued Medications Generic Name Dose Route Start Last Admin Trade Name Freq PRN Reason Stop Dose Admin Sodium Chloride 1,000 mls @ 1,000 mls/hr 11/27/17 05:00 11/27/17 05:40 Normal Saline - IV 11/27/17 05:59 1,000 mls/hr ASDIR STA Administration Medical Decision Making - Medical Decision Making 11/27/17 09:23 Gave insulin IV Push for hyperglycemia >400. Subsequent CBG is checked. The Pt is unsafe for discharge at this time. They require further hospital observation, workup, and treatment. Microblog sent to [facility] for admission. Spoke with [facility] Dr. Rae who admits to Med/Surg IP. Dr. Amato used to go to [facility] but last year she stopped. Decision to Admit order placed to covering attending Dr. Rae. *DC/Admit/Observation/Transfer Diagnosis at time of Disposition: Erosive gastritis, Upper gastrointestinal hemorrhage Anemia Qualifiers: Anemia type: unspecified type Qualified Code(s): D64.9 - Anemia, unspecified Diabetes Qualifiers: Diabetes mellitus type: other specified (including DOROTHEA) Diabetes mellitus superintendent container terminal insulin use: unspecified superintendent container terminal insulin use status Diabetes mellitus complication status: with unspecified complications Qualified Code(s): E13.8 - Other specified diabetes mellitus with unspecified complications - Discharge Dispostion Condition at time of disposition: Stable Decision to Admit order: Yes - Referrals - Patient Instructions - Post Discharge Activity
[2017-11-27] MEDS ORDERED: PANTOPRAZOLE SODIUM 40 MG VIAL IVPUSH ONE (09:30)
[2017-11-27] MEDS ORDERED: PANTOPRAZOLE SODIUM 40 MG VIAL ONE (09:43)
--- NOTE | 2017-11-27 10:08 | EKG ---
Test Reason : Blood Pressure : / mmHG Vent. Rate : 085 BPM Atrial Rate : 085 BPM P-R Int : 116 ms QRS Dur : 104 ms QT Int : 408 ms P-R-T Axes : 053 043 125 degrees QTc Int : 485 ms NORMAL SINUS RHYTHM PROLONGED QT ABNORMAL ECG WHEN COMPARED WITH ECG OF 21-SEP-2017 22:40, T WAVE INVERSION MORE EVIDENT IN LATERAL LEADS Confirmed by STEVEN GUERRA MD ([id number]) on 11/27/2017 10:07:41 AM Referred By: Confirmed By:STEVEN GUERRA MD
[2017-11-27] MEDS ORDERED: SODIUM CHLORIDE 1,000 ML IV SCH ×2 (10:30→13:12)
--- NOTE | 2017-11-27 11:42 | HP ---
<Nanette Varma - Last Filed: 11/27/17 19:40> CHIEF COMPLAINT: Patient is a 87 y/o female with a past medical history of HTN, DM, PVD s/p R BKA, CAD, SVT and dementia who presents with hematemesis per detention. Patient states she does not remember vomiting and her only complaint is she has a headache. Patient is pleasantly confused. PCP: HISTORY OF PRESENT ILLNESS: HTN, DM, PVD s/p R BKA, CAD, SVT and dementia ER course was notable for: (1) EKG (2) (3) Recent Travel: no PAST MEDICAL HISTORY:HTN, DM, PVD s/p R BKA, CAD, SVT and dementia PAST SURGICAL HISTORY: Social History: Smoking:no Alcohol:no Drugs: no Family History: Allergies No Known Allergies Allergy (Verified 09/20/17 17:28) HOME MEDICATIONS: Home Medications Medication Instructions Recorded Acetaminophen [Tylenol 1,000 mg PO Q8H PRN #0 tablet 02/04/14 .Extra-Strength -] Brimonidine Tartrate [Alphagan 1 drop OU BID #0 drops 02/04/14 0.2% -] Latanoprost 0.005% Eye Drops 1 drop OU HS #0 drops 02/04/14 [Xalatan 0.005% Eye Drops -] Atorvastatin Ca [Lipitor] 40 mg PO HS tablet 09/25/17 Cholecalciferol (Vitamin D3) 50,000 unit PO WEEKLY #0 unit 09/25/17 [Vitamin D -] Clopidogrel Bisulfate [Plavix -] 75 mg PO DAILY tablet 09/25/17 Docusate Sodium [Colace] 100 mg PO BID #0 cap 09/25/17 Gabapentin [Neurontin -] 100 mg PO HS #0 cap 09/25/17 Lisinopril [Prinivil] 20 mg PO DAILY #0 tab 09/25/17 Magnesium Hydrox 2400MG/30Ml [Milk 30 ml PO DAILY PRN #0 ml 09/25/17 of Magnesia -] Metoprolol Succinate [Toprol XL -] 12.5 mg PO DAILY tab.sr.24h 09/25/17 Mirtazapine [Remeron -] 30 mg PO HS #0 tab 09/25/17 Pantoprazole Sodium [Protonix -] 40 mg PO HS tablet.ec 09/25/17 Polyethylene Glycol 3350 [Miralax 17 gm PO BID PRN #0 bottle 09/25/17 119 gm Btl -] Sennosides [Senna] 2 tab PO HS #0 tab 09/25/17 Sitagliptin Phosphate [Januvia] 100 mg PO DAILY #30 tablet 09/25/17 REVIEW OF SYSTEMS pleasantly confused, unable to obtain PHYSICAL EXAMINATION Vital Signs - 24 hr 11/27/17 11/27/17 11/27/17 01:28 05:24 06:53 Temperature 97.2 F L Pulse Rate 98 H Pulse Rate [ Left] Respiratory 20 Rate Blood Pressure 143/107 Blood Pressure [Arm] O2 Sat by Pulse 100 97 95 Oximetry (%) 11/27/17 09:32 Temperature Pulse Rate Pulse Rate [ 110 H Left] Respiratory 18 Rate Blood Pressure Blood Pressure 143/92 [Arm] O2 Sat by Pulse 97 Oximetry (%) GENERAL: Awake, alert HEAD: Normal with no signs of trauma. EYES: Pupils equal, round and reactive to light, extraocular movements intact EARS, NOSE, THROAT: Ears normal, nares patent, oropharynx clear without exudates. Dry mucous membranes. NECK: Normal range of motiones. LUNGS: Breath sounds equal, clear to auscultation bilaterally. No wheezes, and no crackles. No accessory muscle use. HEART: Regular rate and rhythm, normal S1 and S2 without murmur, rub or gallop. ABDOMEN: Soft, nontender, not distended, normoactive bowel sounds, no guarding, no rebound, no masses MUSCULOSKELETAL: Normal range of motion at all joints. No bony deformities or tenderness. UPPER EXTREMITIES: 2+ pulses, warm, well-perfused. No cyanosis. No clubbing. No peripheral edema. LOWER EXTREMITIES:1+ left DT pulse, R BKA NEUROLOGICAL: Cranial nerves II-XII intact. Normal speech. PSYCHIATRIC: Cooperative. Good eye contact. SKIN: Warm, dry, normal turgor, no rashes or lesions noted, normal capillary refill. Laboratory Results - last 24 hr 11/27/17 11/27/17 11/27/17 02:50 02:50 02:50 WBC 11.9 H RBC 3.52 L Hgb 9.7 L Hct 29.3 L D MCV 83.3 MCH 27.5 MCHC 33.0 RDW 14.3 Plt Count 262 MPV 8.9 Absolute Neuts (auto) 10.1 Neutrophils % 85.0 H D Lymphocytes % 11.1 D Monocytes % 3.2 L Eosinophils % 0.2 D Basophils % 0.5 Nucleated RBC % 0 PT with INR 13.50 H INR 1.19 H PTT (Actin FS) 37.8 Sodium 132 L Potassium 5.1 Chloride 99 Carbon Dioxide 26 Anion Gap 7 L BUN 32 H Creatinine 1.6 H Creat Clearance w eGFR 30.35 Random Glucose 466 H* Calcium 8.9 Total Bilirubin 0.3 AST 13 L ALT 29 Alkaline Phosphatase 72 Troponin I Total Protein 6.4 Albumin 3.2 L Urine Color Urine Appearance Urine pH Ur Specific [place] Urine Protein Urine Glucose (UA) Urine Ketones Urine Blood Urine Nitrite Urine Bilirubin Urine Urobilinogen Ur Leukocyte Esterase Urine WBC (Auto) Urine RBC (Auto) Ur Epithelial Cells Urine Bacteria Hyaline Casts Urine Mucus Urine Yeast Stool Occult Blood Acetone, Qual Blood Type Antibody Screen 11/27/17 11/27/17 11/27/17 02:50 04:39 05:49 WBC RBC Hgb Hct MCV MCH MCHC RDW Plt Count MPV Absolute Neuts (auto) Neutrophils % Lymphocytes % Monocytes % Eosinophils % Basophils % Nucleated RBC % PT with INR INR PTT (Actin FS) Sodium Potassium Chloride Carbon Dioxide Anion Gap BUN Creatinine Creat Clearance w eGFR Random Glucose Calcium Total Bilirubin AST ALT Alkaline Phosphatase Troponin I 0.08 H Total Protein Albumin Urine Color Yellow Urine Appearance Cloudy Urine pH 5.0 Ur Specific [place] 1.018 Urine Protein 1+ H Urine Glucose (UA) 3+ H Urine Ketones Negative Urine Blood Negative Urine Nitrite Negative Urine Bilirubin Negative Urine Urobilinogen Negative Ur Leukocyte Esterase 3+ H Urine WBC (Auto) 95 Urine RBC (Auto) 12 Ur Epithelial Cells Rare Urine Bacteria Moderate Hyaline Casts 37 Urine Mucus Rare Urine Yeast Rare Stool Occult Blood Acetone, Qual Blood Type O POSITIVE Antibody Screen Negative 11/27/17 11/27/17 06:37 07:45 WBC RBC Hgb Hct MCV MCH MCHC RDW Plt Count MPV Absolute Neuts (auto) Neutrophils % Lymphocytes % Monocytes % Eosinophils % Basophils % Nucleated RBC % PT with INR INR PTT (Actin FS) Sodium Potassium Chloride Carbon Dioxide Anion Gap BUN Creatinine Creat Clearance w eGFR Random Glucose Calcium Total Bilirubin AST ALT Alkaline Phosphatase Troponin I Total Protein Albumin Urine Color Urine Appearance Urine pH Ur Specific [place] Urine Protein Urine Glucose (UA) Urine Ketones Urine Blood Urine Nitrite Urine Bilirubin Urine Urobilinogen Ur Leukocyte Esterase Urine WBC (Auto) Urine RBC (Auto) Ur Epithelial Cells Urine Bacteria Hyaline Casts Urine Mucus Urine Yeast Stool Occult Blood Positive Acetone, Qual Negative L Blood Type Antibody Screen ASSESSMENT/PLAN: Patient is a 87 y/o female with a past medical history of HTN, DM, PVD s/p R BKA, CAD, SVT and dementia who presents with hematemesis. #Hematemesis - Per GI suspected due to acute ileus/ gastroparesis due to hyperglycemia - f/u HGB: 9.7, and iron studies - IV Protonix 40 mg BID - FOBT + in ED, negative per GI #UTI -Ceftrixaone 1 gm (day 1) -UA: 3+ glucose, 3+ leukocyte esterase, WBC: 95, 37 hyaline casts -WBC: 11.9 #Prerenal TRAY - BUN: 32 Cr: 1.6 - NS @ 75 (1L) #Hyperglycemia -insulin sliding scale - home medications Visit type - Emergency Visit Emergency Visit: Yes ED Registration Date: 11/27/17 Care time: The patient presented to the Emergency Department on the above date and was hospitalized for further evaluation of their emergent condition. - New Patient This patient is new to me today: Yes Date on this admission: 11/27/17 - Critical Care Critical Care patient: No Hospitalist Screening - Colonoscopy Questionnaire Colonoscopy Questionnaire: Colonoscopy Questionnaire - Patient: 50 - 75 years old and never had a screening colonoscopy: Unknown History of colon or rectal polyps, or CA: Unknown History of IBD, Crohn's disease or UC: Unknown History of abdominal radiation therapy as a child: Unknown - Relative: 1 with colon or rectal CA, or polyps at age 60 or younger: Unknown Colon or rectal CA diagnosed at age 45 or younger: Unknown Multiple relatives with colon or rectal CA: Unknown - Outcome: Screening Result: Negative Screen <Yamileth Rae - Last Filed: 11/27/17 22:07> Patient is lying in bed with no active bleeding. GI consult appreciated. will continue Protonic 40mg IV BId, diabtic diet, will stop her fluid since she is a high risk for fluid overload. Hospitalist Screening - Colonoscopy Questionnaire Colonoscopy Questionnaire: Colonoscopy Questionnaire
[2017-11-27 12:06] VITALS: BMI 21.4
[2017-11-27] MEDS ORDERED: CEFTRIAXONE 1 GM in DEXTROSE 5%-WATER 100 ML IVPB SCH (13:15)
--- NOTE | 2017-11-27 13:37 | PN ---
Progress Note (short form) - Note Progress Note: GI CONSULTATION: FOR DR EPIFANIO TIRADO PLEASE SEE COMPLETE DICATATION OF CONSULT SEE RECENT CONSULT OF 09/20/17 AND ENDO REPORT OF 09/27/[address] HEAD SYSTEM SUSPECT VOMITING DUE TO ACUTE ILEUS/GASTROPARESIS FROM MARKED HYPERGLYCEMIA NO ACTIVE OR ONGOING BLEEDING AT THIS TIME STOOL IS BEIGE AND GUAIAC NEGATIVE NO FURTHER GI SX'S PT ON A/C WOULD RESUME DIET/ OBSERVE CONTINUE PPI FOR NOW F/U LABS (hgb) AND IRON STUDIES WILL DEFER NEED FOR GI W/U TO DR TIRADO'S TEAM THANKS, MD STELLA
[2017-11-27] MEDS: INSULIN SLIDING SCALE (NOVOLOG) 1 VIAL SQ SCH ×4 (14:09→22:35)
[2017-11-27] MEDS ORDERED: cefTRIAXone SODIUM 1 GM VIAL ONE (14:13)
[2017-11-27] MEDS ORDERED: DEXTROSE 5%-WATER 100 ML IVPB ONE (14:14)
[2017-11-27] MEDS: CEFTRIAXONE 1 GM in DEXTROSE 5%-WATER 100 ML IVPB SCH (14:16)
--- NOTE | 2017-11-27 14:25 | CONS ---
DATE OF CONSULTATION: 11/27/[address] Mccormick; I am in coverage. Apparently, the patient is known to Dr. Leo Mccormick, who saw the patient on September 20, 2017. At that time, she presented as an 87-year-old woman from the custodial with a past medical history of hypertension, diabetes, peripheral vascular disease, status post right BKA, coronary artery disease with underlying dementia who came in from the custodial with multiple episodes of coffee-ground emesis. At that time, Dr. Mccormick noted that the patient was a poor historian and, at that time, apparently, she had no complaints when she came in. She was not having any bloody stools and there was no further coffee-ground vomiting when she presented. She did have a drop in her hemoglobin of 3 g and, at that time, it was noted she had no known drug allergies. She was on aspirin, oxycodone, amlodipine, Alphagan eyedrops, Novolin insulin, latanoprost eyedrops, vitamin D, Colace, Neurontin, Levemir, Prinivil, magnesium hydroxide, Remeron, MiraLAX, Senokot, and tramadol. Dr. Mccormick noted a hemoglobin of 7.6 with a hematocrit of 23 and a normal INR and it was his impression that she had stable upper GI bleeding without signs of ongoing bleeding. He, at that time, planned for an upper endoscopy and the patient was placed on a proton pump inhibitor. The patient underwent an upper endoscopy, it appears, on September 27, 2017, and, on that examination, she was noted to have normal duodenal mucosa, erythematous gastritis in the gastric body and gastric antrum. Biopsies were obtained. The esophagus appeared normal. There were no significant findings on that examination that was performed on September 27. It looks like the patient has not been in the hospital since then and, now apparently, by report, she came in from the custodial with an episode of vomiting with blood seen. This was reported in the custodial. The patient could not give any accurate history and, here at [facility], where she has been for the past over 12 hours, she has not had any signs of any ongoing bleeding or further vomiting or hematemesis. In fact, in the ER, the patient reported she did not remember having any vomiting and she only reported a headache. There is really no other additional obtainable history. She does not smoke, drink, or use drugs. She comes in from the custodial. She has no known drug allergies. Her medications are pretty much the same, except it is noted that she is on Plavix, Januvia, senna, MiraLAX, Protonix, Remeron, Toprol, milk of magnesia, Prinivil, Neurontin, Colace, Lipitor. When she came, her vital signs were completely stable and, in the emergency room, she had a platelet count of 262,000, white count of 11.9, hemoglobin of 9.7, hematocrit of 29.3. PHYSICAL EXAMINATION: General: Currently, on examination, the patient is very happy. She looks to be in no distress. She is smiling. HEENT: She is edentulous. Her mucosa in the mouth is dry. Neck: Supple. Abdomen: Not really distended. Bowel sounds are active, very active. The abdomen is soft. There is no tenderness. There are no obvious masses, rebound, or guarding. Rectal: Examination reveals stool that is light stubbs in color, beige, and is guaiac negative. LABORATORY DATA: Notable in that the serum sodium is 132, potassium 5.1, chloride 99, bicarbonate of 26, BUN 32, creatinine 1.6, glucose 466, calcium 8.9. Total bilirubin of 0.3, AST 13, ALT 29, alkaline phosphatase 72. Apparently, her hemoglobin is 9.7, hematocrit is 29.3 and, if you look at her baseline hemoglobin to compare, when she was discharged on September 23 and September 24, her hemoglobin was between 12.7 and 14. It is my impression that the patient is an 87-year-old woman from the custodial with medical issues as noted, significantly the diabetes, came in with hyperglycemia, had reported episode of hematemesis prior. A couple of months ago, she was admitted for a coffee-ground vomiting. She had an endoscopy without finding. I suspect the vomiting is most likely due to ileus from hyperglycemia and I suspect that the coffee-ground or hematemesis appeared that way because she probably has some underlying inflammation. She already had an upper endoscopy. At the present time, she is guaiac negative. There are no signs of any ongoing or active bleeding; however, she is more anemic than prior, so I think she certainly needs to have a hematologic evaluation and she needs to have iron studies checked to rule out signs of iron deficiency; otherwise, she will need further investigation and, possibly, repeat GI investigation. For now, I agree with empiric proton pump inhibition, observation, following up the hemoglobin and hematocrit in the morning and I think her diet, at this time, can be resumed. In the hospital, it appears she is getting Protonix, Novolin, IV fluid, and ceftriaxone. We will continue to be available to aide in the management of this patient. MELI DOUGLAS M.D. [id number]
[2017-11-27] MEDS ORDERED: MAG HYDROX/AL HYDROX/SIMETH 30 ML UNIT-DOSE CUP PO PRN (17:09)
[2017-11-27] MEDS ORDERED: ACETAMINOPHEN 500 MG TABLET (FP) PO PRN (17:09)
[2017-11-27] MEDS ORDERED: POLYETHYLENE GLYCOL 3350 119 GM BTL PO PRN (17:09)
[2017-11-27] MEDS ORDERED: ERGOCALCIFEROL (VITAMIN D2) 50,000 UNIT CAPSULE (FP) PO SCH (17:46)
[2017-11-27] MEDS: DOCUSATE SODIUM 100 MG CAPSULE (FP) PO SCH (21:37)
[2017-11-27] MEDS: SENNOSIDES 8.6MG TABLET (FP) PO SCH (21:37)
[2017-11-27] MEDS: PANTOPRAZOLE SODIUM 40 MG VIAL IVPUSH SCH (21:37)
[2017-11-27] MEDS: MIRTAZAPINE 15 MG TABLET (FP) PO SCH (21:37)
[2017-11-27] MEDS: GABAPENTIN 100 MG CAPSULE (FP) PO SCH (21:38)
[2017-11-27] MEDS: LATANOPROST 0.005% OPHTH SOLN 2.5ML BOTTLE OU SCH (21:38)
[2017-11-27] MEDS: ATORVASTATIN CA 40 MG TABLET (FP) PO SCH (21:38)
[2017-11-27] MEDS ORDERED: PANTOPRAZOLE 40 MG TABLET (FP) PO SCH (22:00)
[2017-11-28] MEDS: INSULIN SLIDING SCALE (NOVOLOG) 1 VIAL SQ SCH ×6 (03:02→22:29)
[2017-11-28] MEDS: sitaGLIPtin PHOSPHATE 50 MG TABLET PO SCH (06:36)
[2017-11-28] MEDS ORDERED: INSULIN (NOVOLOG) ASPART 100 UNITS/ML 10ML VIAL ONE ×2 (06:37→17:37)
[2017-11-28] MEDS ORDERED: INSULIN (LEVEMIR) 100 UNITS/ML UNITS SQ ONE (06:38)
[2017-11-28 08:27] LABS: HEMATOCRIT 22.4 % (32.4-45.2); HEMOGLOBIN 7.6 GM/dL (10.7-15.3); MCH 28.3 pg (25.7-33.7); MCHC 34.1 g/dl (32.0-36.0); MEAN PLT VOLUME 8.4 fl (7.5-11.1); PLATELET COUNT 186 K/MM3 (134-434); RDW 14.5 % (11.6-15.6); WHITE BLOOD COUNT 8.6 K/mm3 (4.0-10.0)
[2017-11-28 08:46] LABS: ALBUMIN 2.9 g/dl (3.4-5.0); ALK PHOS 59 U/L (45-117); ANION GAP 8 (8-16); BILIRUBIN,TOTAL 0.1 mg/dL (0.2-1.0); BLOOD UREA NITROGEN 32 mg/dL (7-18); CALCIUM 8.3 mg/dL (8.5-10.1); CHLORIDE 109 mmol/L (98-107); CO2 26 mmol/L (21-32); CREATININE 0.9 mg/dL (0.55-1.02); GLUCOSE,RANDOM 137 mg/dL (74-106); MAGNESIUM 1.9 mg/dL (1.8-2.4); PHOSPHOROUS 2.9 mg/dL (2.5-4.9); POTASSIUM 3.8 mmol/L (3.5-5.1); SGOT/AST 27 U/L (15-37); SGPT/ALT 20 U/L (12-78); SODIUM 143 mmol/L (136-145); TOT PROT 5.8 g/dl (6.4-8.2)
--- NOTE | 2017-11-28 09:05 | PN ---
Physical Exam: SUBJECTIVE: Patient is a 87 y/o female with a past medical history of HTN, DM, PVD s/p R BKA, CAD, SVT and dementia who presents with hematemesis per long-term. Patient is pleasantly confused and has no complaints for today. Per nursing staff she did not have any episodes of vomiting or diarrhea. OBJECTIVE: Vital Signs Period Temp Pulse Resp BP Sys/Cabral Pulse Ox Last 24 Hr 97.9 F-98.8 F 88-110 18-20 103-143/45-92 97-97 GENERAL: Awake, alert HEAD: Normal with no signs of trauma. EYES: Pupils equal, round and reactive to light, extraocular movements intact NECK: Normal range of motion LUNGS: Breath sounds equal, clear to auscultation bilaterally. HEART: Regular rate and rhythm, normal S1 and S2 ABDOMEN: Soft, nontender, not distended, normoactive bowel sounds, no guarding, no rebound, no masses MUSCULOSKELETAL: Normal range of motion at all joints. No bony deformities or tenderness. UPPER EXTREMITIES: 2+ pulses, warm, well-perfused. No cyanosis. No clubbing. No peripheral edema. LOWER EXTREMITIES:1+ left DT pulse, R BKA NEUROLOGICAL: Cranial nerves II-XII intact. Normal speech. Laboratory Results - last 24 hr 11/27/17 11/27/17 11/27/17 10:31 12:55 17:26 WBC RBC Hgb Hct MCV MCH MCHC RDW Plt Count MPV POC Glucometer > 400 336 275 Hemoglobin A1c % Ferritin 11/27/17 11/28/17 11/28/17 22:25 02:59 06:29 WBC RBC Hgb Hct MCV MCH MCHC RDW Plt Count MPV POC Glucometer 96 207 162 Hemoglobin A1c % Ferritin 11/28/17 11/28/17 11/28/17 08:07 08:07 08:07 WBC 8.6 RBC 2.70 L Hgb 7.6 L Hct 22.4 L D MCV 83.0 MCH 28.3 MCHC 34.1 RDW 14.5 Plt Count 186 D MPV 8.4 POC Glucometer Hemoglobin A1c % 10.2 H Ferritin Cancelled Active Medications Generic Name Dose Route Start Last Admin Trade Name Freq PRN Reason Stop Dose Admin Acetaminophen 1,000 mg 11/27/17 17:09 Tylenol - PO Q8H PRN FEVER Atorvastatin Calcium 40 mg 11/27/17 22:00 11/27/17 21:38 Lipitor - PO 40 mg HS JAIRON Administration Docusate Sodium 100 mg 11/27/17 22:00 11/27/17 21:37 Colace - PO 100 mg BID JAIRON Administration Ergocalciferol 50,000 unit 11/27/17 17:46 11/27/17 19:31 Drisdol - PO 50,000 unit Tuttle@1000 JAIRON Administration Gabapentin 100 mg 11/27/17 22:00 11/27/17 21:38 Neurontin - PO 100 mg HS JAIRON Administration Ceftriaxone Sodium 1 gm/ 100 mls @ 200 mls/hr 11/27/17 15:00 11/27/17 14:16 Dextrose IVPB 200 mls/hr DAILY JAIRON Administration Insulin Aspart 0 vial 11/27/17 10:30 11/28/17 06:32 Novolog Vial Sliding Scale - SQ 2 units Q4H JAIRON Administration Protocol Latanoprost 1 drop 11/27/17 22:00 11/27/17 21:38 Xalatan 0.005% Eye Drops - OU 1 drop HS JAIRON Administration Mirtazapine 30 mg 11/27/17 22:00 11/27/17 21:37 Remeron - PO 30 mg HS JAIRON Administration Pantoprazole Sodium 40 mg 11/27/17 22:00 11/27/17 21:37 Protonix Iv IVPUSH 40 mg BID JAIRON Administration Polyethylene Glycol 17 gm 11/27/17 17:09 Miralax (For Daily Use) - PO BID PRN CONSTIPATION Senna 2 tab 11/27/17 22:00 11/27/17 21:37 Senna - PO 2 tab HS JAIRON Administration Sitagliptin Phosphate 50 mg 11/28/17 07:00 11/28/17 06:36 Januvia - PO 50 mg ACBK JAIRON Administration ASSESSMENT/PLAN: Patient is a 87 y/o female with a past medical history of HTN, DM, PVD s/p R BKA, CAD, SVT and dementia who presents with hematemesis. #Hematemesis - Per GI suspected due to acute ileus/ gastroparesis due to hyperglycemia - f/u HGB: 7.6, and iron studies - IV Protonix 40 mg BID - FOBT + in ED, negative per GI #UTI -Ceftrixaone 1 gm (day 2) -UA: 3+ glucose, 3+ leukocyte esterase, WBC: 95, 37 hyaline casts -WBC: 11.9> 8.6 #Prerenal TRAY : resolved - BUN: 32 Cr: .9 - NS @ 75 (1L) 11/27 #Hyperglycemia -insulin sliding scale - home medications: januvia renally dosed 50 mg - metformin held for now - A1C: 10.2 #HLD -continue atorvastatin #HTN -home meds held for now Dispo: monitor on abx for now, possible D/C tomorrow Visit type - Emergency Visit Emergency Visit: No - New Patient This patient is new to me today: No - Critical Care Critical Care patient: No
[2017-11-28] MEDS ORDERED: DEXTROSE 5%-WATER 100 ML IVPB ONE (10:31)
[2017-11-28] MEDS ORDERED: cefTRIAXone SODIUM 1 GM VIAL ONE (10:31)
[2017-11-28] MEDS: CEFTRIAXONE 1 GM in DEXTROSE 5%-WATER 100 ML IVPB SCH (10:35)
[2017-11-28] MEDS: PANTOPRAZOLE SODIUM 40 MG VIAL IVPUSH SCH (10:36)
[2017-11-28] MEDS: DOCUSATE SODIUM 100 MG CAPSULE (FP) PO SCH ×2 (10:39→22:24)
[2017-11-28 16:00] LABS: BASO % 0.5 % (0-2.0); EOS % 4.4 % (0-4.5); HEMATOCRIT 23.4 % (32.4-45.2); HEMOGLOBIN 7.8 GM/dL (10.7-15.3); LYMPH % 25.1 % (8-40); MCH 27.8 pg (25.7-33.7); MCHC 33.2 g/dl (32.0-36.0); MEAN CELL VOLUME 83.8 fl (80-96); MEAN PLT VOLUME 8.8 fl (7.5-11.1); MONO % 7.6 % (3.8-10.2); NEUT % 62.4 % (42.8-82.8); PLATELET COUNT 191 K/MM3 (134-434); RBC 2.79 M/mm3 (3.60-5.2); RDW 14.8 % (11.6-15.6); WHITE BLOOD COUNT 7.7 K/mm3 (4.0-10.0)
--- NOTE | 2017-11-28 19:56 | PN ---
GI Progress Note Subjective: No acute events No abdominal - Objective Vital Signs: Vital Signs Temperature 98.1 F 11/28/17 16:30 Pulse Rate 99 H 11/28/17 16:30 Respiratory Rate 18 11/28/17 16:30 Blood Pressure 124/62 11/28/17 16:30 O2 Sat by Pulse Oximetry (%) 97 11/27/17 20:43 Constitutional: Calm Eyes: No: Sclera Icterus Cardiovascular: Yes: Tachycardia Respiratory: Yes: CTA Bilaterally Gastrointestinal Inspection: No: Distention ...Auscultate: Yes: Normoactive Bowel Sounds ...Palpate: Yes: Soft. No: Tenderness ...Percussion: Yes: Tympanitic (mild tympany) Edema: No (No LLE edema, right BKA) Neurological: Yes: Alert Labs: CBC, BMP 11/28/17 15:30 11/28/17 08:07 INR, PTT INR 1.19 (0.82-1.09) H 11/27/17 02:50 Problem List - Problems (1) Anemia Assessment/Plan: No overt bleeding with stable h/h. Guaiac negative on Dr. Oseguera's exam over the weekend but guaiac positive from specimen sent to lab. Suspect that the anemia is multifactorial. Discussed things with Mr. Campbell Miguel, Ms. Miguel's son and HCP. He in turn asked me sal discuss things with his Mary Beth Miguel. We discussed the finding of anemia. Discussed that to look for source of upper GI bleeding given the worsened anemia from her last admission and coffee ground emesis in setting of Plavix therapy, repeat upper endoscopy could be performed for further evaluation. We discussed potential risks of the procedure like but not limited to bleeding, perforation requiring surgery to repair, infection, sedation medication effects all of which could be potentially life threatening. We agreed on montitoring her counts for now. If persistently low or worsening, discussed EGD later in week with Plavix held longer. Needs glycemic control as hyperglycemia likely contributing to gastroparesis / vomiting Ordered FUA to assess for ileus Protonix 40mg once daily for now Monitor for active GI bleeding Code(s): D64.9 - ANEMIA, UNSPECIFIED Qualifiers: Anemia type: unspecified type Qualified Code(s): D64.9 - Anemia, unspecified
--- NOTE | 2017-11-28 21:19 | PN ---
Teaching Attending Note Name of Resident: Nanette Varma ATTENDING PHYSICIAN STATEMENT I saw and evaluated the patient. I reviewed the resident's note and discussed the case with the resident. I agree with the resident's findings and plan as documented. SUBJECTIVE: OBJECTIVE: Vital Signs Temperature 98.1 F 11/28/17 16:30 Pulse Rate 99 H 11/28/17 16:30 Respiratory Rate 18 11/28/17 16:30 Blood Pressure 124/62 11/28/17 16:30 O2 Sat by Pulse Oximetry (%) 97 11/27/17 20:43 CBCD WBC 7.7 K/mm3 (4.0-10.0) 11/28/17 15:30 RBC 2.79 M/mm3 (3.60-5.2) L 11/28/17 15:30 Hgb 7.8 GM/dL (10.7-15.3) L 11/28/17 15:30 Hct 23.4 % (32.4-45.2) L 11/28/17 15:30 MCV 83.8 fl (80-96) 11/28/17 15:30 MCHC 33.2 g/dl (32.0-36.0) 11/28/17 15:30 RDW 14.8 % (11.6-15.6) 11/28/17 15:30 Plt Count 191 K/MM3 (134-434) 11/28/17 15:30 MPV 8.8 fl (7.5-11.1) 11/28/17 15:30 CMP Sodium 143 mmol/L (136-145) 11/28/17 08:07 Potassium 3.8 mmol/L (3.5-5.1) 11/28/17 08:07 Chloride 109 mmol/L (98-107) H 11/28/17 08:07 Carbon Dioxide 26 mmol/L (21-32) 11/28/17 08:07 Anion Gap 8 (8-16) 11/28/17 08:07 BUN 32 mg/dL (7-18) H 11/28/17 08:07 Creatinine 0.9 mg/dL (0.55-1.02) 11/28/17 08:07 Creat Clearance w eGFR 58.95 (>60) 11/28/17 08:07 Random Glucose 137 mg/dL (74-106) H 11/28/17 08:07 Calcium 8.3 mg/dL (8.5-10.1) L 11/28/17 08:07 Total Bilirubin 0.1 mg/dL (0.2-1.0) L 11/28/17 08:07 AST 27 U/L (15-37) 11/28/17 08:07 ALT 20 U/L (12-78) 11/28/17 08:07 Alkaline Phosphatase 59 U/L (45-117) D 11/28/17 08:07 Total Protein 5.8 g/dl (6.4-8.2) L 11/28/17 08:07 Albumin 2.9 g/dl (3.4-5.0) L 11/28/17 08:07 CARDIAC ENZYMES Troponin I 0.08 ng/ml (0.00-0.05) H 11/27/17 04:39 Current Medications Generic Name Dose Route Start Last Admin Trade Name Freq PRN Reason Stop Dose Admin Acetaminophen 1,000 mg 11/27/17 17:09 Tylenol - PO Q8H PRN FEVER Atorvastatin Calcium 40 mg 11/27/17 22:00 11/27/17 21:38 Lipitor - PO 40 mg HS JAIRON Administration Docusate Sodium 100 mg 11/27/17 22:00 11/28/17 10:39 Colace - PO 100 mg BID JAIRON Administration Ergocalciferol 50,000 unit 11/27/17 17:46 11/27/17 19:31 Drisdol - PO 50,000 unit Tuttle@1000 JAIRON Administration Gabapentin 100 mg 11/27/17 22:00 11/27/17 21:38 Neurontin - PO 100 mg HS JAIRON Administration Ceftriaxone Sodium 1 gm/ 100 mls @ 200 mls/hr 11/27/17 15:00 11/28/17 10:35 Dextrose IVPB 200 mls/hr DAILY JAIRON Administration Insulin Aspart 0 vial 11/27/17 10:30 11/28/17 17:43 Novolog Vial Sliding Scale - SQ Not Given Q4H JAIRON Protocol Latanoprost 1 drop 11/27/17 22:00 11/27/17 21:38 Xalatan 0.005% Eye Drops - OU 1 drop HS JAIRON Administration Mirtazapine 30 mg 11/27/17 22:00 11/27/17 21:37 Remeron - PO 30 mg HS JAIRON Administration Pantoprazole Sodium 40 mg 11/29/17 10:00 Protonix - PO DAILY JAIRON Polyethylene Glycol 17 gm 11/27/17 17:09 Miralax (For Daily Use) - PO BID PRN CONSTIPATION Senna 2 tab 11/27/17 22:00 11/27/17 21:37 Senna - PO 2 tab HS JAIRON Administration Sitagliptin Phosphate 50 mg 11/28/17 07:00 11/28/17 06:36 Januvia - PO 50 mg ACBK JAIRON Administration Home Medications Medication Instructions Recorded Acetaminophen [Tylenol 1,000 mg PO Q8H PRN #0 tablet 02/04/14 .Extra-Strength -] Brimonidine Tartrate [Alphagan 1 drop OU BID #0 drops 02/04/14 0.2% -] Latanoprost 0.005% Eye Drops 1 drop OU HS #0 drops 02/04/14 [Xalatan 0.005% Eye Drops -] Atorvastatin Ca [Lipitor] 40 mg PO HS tablet 09/25/17 Cholecalciferol (Vitamin D3) 50,000 unit PO WEEKLY #0 unit 09/25/17 [Vitamin D -] Clopidogrel Bisulfate [Plavix -] 75 mg PO DAILY tablet 09/25/17 Docusate Sodium [Colace] 100 mg PO BID #0 cap 09/25/17 Gabapentin [Neurontin -] 100 mg PO HS #0 cap 09/25/17 Lisinopril [Prinivil] 20 mg PO DAILY #0 tab 09/25/17 Magnesium Hydrox 2400MG/30Ml [Milk 30 ml PO DAILY PRN #0 ml 09/25/17 of Magnesia -] Metoprolol Succinate [Toprol XL -] 12.5 mg PO DAILY tab.sr.24h 09/25/17 Mirtazapine [Remeron -] 30 mg PO HS #0 tab 09/25/17 Pantoprazole Sodium [Protonix -] 40 mg PO HS tablet.ec 09/25/17 Polyethylene Glycol 3350 [Miralax 17 gm PO BID PRN #0 bottle 09/25/17 119 gm Btl -] Sennosides [Senna] 2 tab PO HS #0 tab 09/25/17 Sitagliptin Phosphate [Januvia] 100 mg PO DAILY #30 tablet 09/25/17 ASSESSMENT AND PLAN:
[2017-11-28] MEDS ORDERED: PT OWN MED DRAWER 7, Y5N ONE (22:21)
[2017-11-28] MEDS: LATANOPROST 0.005% OPHTH SOLN 2.5ML BOTTLE OU SCH (22:23)
[2017-11-28] MEDS: MIRTAZAPINE 15 MG TABLET (FP) PO SCH (22:23)
[2017-11-28] MEDS: GABAPENTIN 100 MG CAPSULE (FP) PO SCH (22:23)
[2017-11-28] MEDS: ATORVASTATIN CA 40 MG TABLET (FP) PO SCH (22:24)
[2017-11-28] MEDS: SENNOSIDES 8.6MG TABLET (FP) PO SCH (22:24)
[2017-11-29] MEDS ORDERED: INSULIN (NOVOLOG) ASPART 100 UNITS/ML 10ML VIAL ONE (01:22)
[2017-11-29] MEDS: INSULIN SLIDING SCALE (NOVOLOG) 1 VIAL SQ SCH ×6 (02:38→22:30)
[2017-11-29 06:10] LABS: SERUM IRON SATURATION 23 % (15-55); TOTAL IRON BINDING CAPACITY 229 ug/dL (250-450); UIBC 176 ug/dL (118-369)
[2017-11-29] MEDS: sitaGLIPtin PHOSPHATE 50 MG TABLET PO SCH (07:06)
--- NOTE | 2017-11-29 07:50 | PN ---
Physical Exam: SUBJECTIVE: Patient is a 87 y/o female with a past medical history of HTN, DM, PVD s/p R BKA, CAD, SVT and dementia who presents with hematemesis per snf. Patient is pleasantly confused and has no complaints for today. OBJECTIVE: Vital Signs Period Temp Pulse Resp BP Sys/Cabral Pulse Ox Last 24 Hr 97.8 F-98.7 F 80-99 18-20 121-159/53-86 GENERAL: Awake, alert HEAD: Normal with no signs of trauma. EYES: Pupils equal, round and reactive to light, extraocular movements intact NECK: Normal range of motion LUNGS: Breath sounds equal, clear to auscultation bilaterally. HEART: Regular rate and rhythm, normal S1 and S2 ABDOMEN: Soft, nontender, not distended, normoactive bowel sounds, no guarding, no rebound, no masses MUSCULOSKELETAL: Normal range of motion at all joints. No bony deformities or tenderness. UPPER EXTREMITIES: 2+ pulses, warm, well-perfused. No cyanosis. No clubbing. No peripheral edema. LOWER EXTREMITIES:1+ left DT pulse, R BKA NEUROLOGICAL: Cranial nerves II-XII intact. Normal speech. Laboratory Results - last 24 hr 11/28/17 11/28/17 11/28/17 08:07 08:07 08:07 WBC 8.6 RBC 2.70 L Hgb 7.6 L Hct 22.4 L D MCV 83.0 MCH 28.3 MCHC 34.1 RDW 14.5 Plt Count 186 D MPV 8.4 Absolute Neuts (auto) Neutrophils % Lymphocytes % Monocytes % Eosinophils % Basophils % Nucleated RBC % Sodium 143 Potassium 3.8 Chloride 109 H Carbon Dioxide 26 Anion Gap 8 BUN 32 H Creatinine 0.9 Creat Clearance w eGFR 58.95 POC Glucometer Random Glucose 137 H Hemoglobin A1c % Calcium 8.3 L Phosphorus 2.9 Magnesium 1.9 Iron 53 TIBC 229 L Iron Saturation 23 Ferritin 65.5 Total Bilirubin 0.1 L AST 27 ALT 20 Alkaline Phosphatase 59 D Total Protein 5.8 L Albumin 2.9 L 11/28/17 11/28/17 11/28/17 08:07 08:07 11:31 WBC RBC Hgb Hct MCV MCH MCHC RDW Plt Count MPV Absolute Neuts (auto) Neutrophils % Lymphocytes % Monocytes % Eosinophils % Basophils % Nucleated RBC % Sodium Potassium Chloride Carbon Dioxide Anion Gap BUN Creatinine Creat Clearance w eGFR POC Glucometer 147 Random Glucose Hemoglobin A1c % 10.2 H Calcium Phosphorus Magnesium Iron TIBC Iron Saturation Ferritin Cancelled Total Bilirubin AST ALT Alkaline Phosphatase Total Protein Albumin 11/28/17 11/28/17 11/28/17 15:30 16:50 21:23 WBC 7.7 RBC 2.79 L Hgb 7.8 L Hct 23.4 L MCV 83.8 MCH 27.8 MCHC 33.2 RDW 14.8 Plt Count 191 MPV 8.8 Absolute Neuts (auto) 4.8 Neutrophils % 62.4 D Lymphocytes % 25.1 D Monocytes % 7.6 D Eosinophils % 4.4 D Basophils % 0.5 Nucleated RBC % 0 Sodium Potassium Chloride Carbon Dioxide Anion Gap BUN Creatinine Creat Clearance w eGFR POC Glucometer 237 250 Random Glucose Hemoglobin A1c % Calcium Phosphorus Magnesium Iron TIBC Iron Saturation Ferritin Total Bilirubin AST ALT Alkaline Phosphatase Total Protein Albumin 11/28/17 11/29/17 11/29/17 22:28 02:37 05:52 WBC RBC Hgb Hct MCV MCH MCHC RDW Plt Count MPV Absolute Neuts (auto) Neutrophils % Lymphocytes % Monocytes % Eosinophils % Basophils % Nucleated RBC % Sodium Potassium Chloride Carbon Dioxide Anion Gap BUN Creatinine Creat Clearance w eGFR POC Glucometer 242 153 183 Random Glucose Hemoglobin A1c % Calcium Phosphorus Magnesium Iron TIBC Iron Saturation Ferritin Total Bilirubin AST ALT Alkaline Phosphatase Total Protein Albumin Active Medications Generic Name Dose Route Start Last Admin Trade Name Freq PRN Reason Stop Dose Admin Acetaminophen 1,000 mg 11/27/17 17:09 Tylenol - PO Q8H PRN FEVER Atorvastatin Calcium 40 mg 11/27/17 22:00 11/28/17 22:24 Lipitor - PO 40 mg HS JAIRON Administration Docusate Sodium 100 mg 11/27/17 22:00 11/28/17 22:24 Colace - PO 100 mg BID JAIRON Administration Ergocalciferol 50,000 unit 11/27/17 17:46 11/27/17 19:31 Drisdol - PO 50,000 unit Tuttle@1000 JAIRON Administration Gabapentin 100 mg 11/27/17 22:00 11/28/17 22:23 Neurontin - PO 100 mg HS JAIRON Administration Ceftriaxone Sodium 1 gm/ 100 mls @ 200 mls/hr 11/27/17 15:00 11/28/17 10:35 Dextrose IVPB 200 mls/hr DAILY JAIRON Administration Insulin Aspart 0 vial 11/27/17 10:30 11/29/17 07:06 Novolog Vial Sliding Scale - SQ 2 units Q4H JAIRON Administration Protocol Latanoprost 1 drop 11/27/17 22:00 11/28/17 22:23 Xalatan 0.005% Eye Drops - OU 1 drop HS JAIRON Administration Mirtazapine 30 mg 11/27/17 22:00 11/28/17 22:23 Remeron - PO 30 mg HS JAIRON Administration Pantoprazole Sodium 40 mg 11/29/17 10:00 Protonix - PO DAILY JAIRON Polyethylene Glycol 17 gm 11/27/17 17:09 Miralax (For Daily Use) - PO BID PRN CONSTIPATION Senna 2 tab 11/27/17 22:00 11/28/17 22:24 Senna - PO 2 tab HS JAIRON Administration Sitagliptin Phosphate 50 mg 11/28/17 07:00 11/29/17 07:06 Januvia - PO 50 mg ACBK JAIRON Administration ASSESSMENT/PLAN: Patient is a 87 y/o female with a past medical history of HTN, DM, PVD s/p R BKA, CAD, SVT and dementia who is admitted for suspected GI bleed. #Hematemesis - Per GI suspected due to acute ileus/ gastroparesis due to hyperglycemia - f/u HGB: 7.6, and iron studies - IV Protonix 40 mg once daily - FOBT + in ED, negative on GI exam - GI (Dr. Shoemaker) discussed with family EGD for possible GI bleed, decided to continue to monitor H/H off of plavix for now - f/u XRAY of abd/ pelvis #UTI -Ceftrixaone 1 gm (day 3) -UA: 3+ glucose, 3+ leukocyte esterase, WBC: 95, 37 hyaline casts -WBC: 11.9> 8.6 #Prerenal TRAY : resolved - BUN: 32 Cr: .9 - NS @ 75 (1L) 11/27 #Hyperglycemia -insulin sliding scale - home medications: januvia renally dosed 50 mg - metformin held for now - A1C: 10.2 #HLD -continue atorvastatin #HTN -home meds held for now Dispo: monitor on abx for now, possible D/C tomorrow
[2017-11-29 08:26] LABS: BASO % 0.3 % (0-2.0); EOS % 3.6 % (0-4.5); HEMATOCRIT 21.9 % (32.4-45.2); HEMOGLOBIN 7.3 GM/dL (10.7-15.3); MCH 27.8 pg (25.7-33.7); MCHC 33.3 g/dl (32.0-36.0); MEAN CELL VOLUME 83.4 fl (80-96); MEAN PLT VOLUME 8.1 fl (7.5-11.1); MONO % 9.4 % (3.8-10.2); NEUT % 60.7 % (42.8-82.8); PLATELET COUNT 185 K/MM3 (134-434); RBC 2.63 M/mm3 (3.60-5.2); RDW 14.7 % (11.6-15.6); WHITE BLOOD COUNT 6.1 K/mm3 (4.0-10.0)
[2017-11-29 08:39] LABS: BLOOD UREA NITROGEN 22 mg/dL (7-18); CALCIUM 8.7 mg/dL (8.5-10.1); CO2 22 mmol/L (21-32); CREATININE 0.8 mg/dL (0.55-1.02); GLUCOSE,RANDOM 194 mg/dL (74-106)
[2017-11-29 08:42] LABS: ANION GAP 11 (8-16); CHLORIDE 109 mmol/L (98-107); SODIUM 142 mmol/L (136-145)
[2017-11-29] MEDS ORDERED: DEXTROSE 5%-WATER 100 ML IVPB ONE (09:34)
[2017-11-29] MEDS ORDERED: cefTRIAXone SODIUM 1 GM VIAL ONE (09:34)
[2017-11-29] MEDS: PANTOPRAZOLE 40 MG TABLET (FP) PO SCH (09:38)
[2017-11-29] MEDS: DOCUSATE SODIUM 100 MG CAPSULE (FP) PO SCH ×2 (09:38→22:31)
[2017-11-29] MEDS: CEFTRIAXONE 1 GM in DEXTROSE 5%-WATER 100 ML IVPB SCH (09:38)
[2017-11-29] MEDS: INSULIN (LEVEMIR) 100 UNITS/ML UNITS SQ SCH (10:43)
--- NOTE | 2017-11-29 15:18 | DS ---
Physical Exam: SUBJECTIVE: Patient is a 87 y/o female with a past medical history of HTN, DM, PVD s/p R BKA, CAD, SVT and dementia who presents with hematemesis per longterm. Patient is pleasantly confused and has no complaints for today. OBJECTIVE: Vital Signs Period Temp Pulse Resp BP Sys/Cabral Pulse Ox Last 24 Hr 97.8 F-98.7 F 80-99 18-20 124-159/53-86 100 PHYSICAL EXAM GENERAL: Awake, alert HEAD: Normal with no signs of trauma. EYES: Pupils equal, round and reactive to light, extraocular movements intact NECK: Normal range of motion LUNGS: Breath sounds equal, clear to auscultation bilaterally. HEART: Regular rate and rhythm, normal S1 and S2 ABDOMEN: Soft, nontender, not distended, normoactive bowel sounds, no guarding, no rebound, no masses LOWER EXTREMITIES:1+ left DT pulse, R BKA NEUROLOGICAL: Cranial nerves II-XII intact. Normal speech. LABS Laboratory Results - last 24 hr 11/28/17 11/28/17 11/28/17 08:07 15:30 16:50 WBC 7.7 RBC 2.79 L Hgb 7.8 L Hct 23.4 L MCV 83.8 MCH 27.8 MCHC 33.2 RDW 14.8 Plt Count 191 MPV 8.8 Absolute Neuts (auto) 4.8 Neutrophils % 62.4 D Lymphocytes % 25.1 D Monocytes % 7.6 D Eosinophils % 4.4 D Basophils % 0.5 Nucleated RBC % 0 Sodium Potassium Chloride Carbon Dioxide Anion Gap BUN Creatinine Creat Clearance w eGFR POC Glucometer 237 Random Glucose Calcium Iron 53 TIBC 229 L Iron Saturation 23 11/28/17 11/28/17 11/29/17 21:23 22:28 02:37 WBC RBC Hgb Hct MCV MCH MCHC RDW Plt Count MPV Absolute Neuts (auto) Neutrophils % Lymphocytes % Monocytes % Eosinophils % Basophils % Nucleated RBC % Sodium Potassium Chloride Carbon Dioxide Anion Gap BUN Creatinine Creat Clearance w eGFR POC Glucometer 250 242 153 Random Glucose Calcium Iron TIBC Iron Saturation 11/29/17 11/29/17 11/29/17 05:52 07:00 07:40 WBC 6.1 RBC 2.63 L Hgb 7.3 L Hct 21.9 L MCV 83.4 MCH 27.8 MCHC 33.3 RDW 14.7 Plt Count 185 MPV 8.1 Absolute Neuts (auto) 3.7 Neutrophils % 60.7 Lymphocytes % 26.0 Monocytes % 9.4 Eosinophils % 3.6 Basophils % 0.3 Nucleated RBC % 0 Sodium 142 Potassium 4.0 Chloride 109 H Carbon Dioxide 22 Anion Gap 11 BUN 22 H Creatinine 0.8 Creat Clearance w eGFR > 60 POC Glucometer 183 Random Glucose 194 H Calcium 8.7 Iron TIBC Iron Saturation 11/29/17 11/29/17 11/29/17 10:31 11:30 13:45 WBC RBC Hgb Hct MCV MCH MCHC RDW Plt Count MPV Absolute Neuts (auto) Neutrophils % Lymphocytes % Monocytes % Eosinophils % Basophils % Nucleated RBC % Sodium Potassium Chloride Carbon Dioxide Anion Gap BUN Creatinine Creat Clearance w eGFR POC Glucometer 235 232 207 Random Glucose Calcium Iron TIBC Iron Saturation HOSPITAL COURSE: Date of Admission:11/27/17 Patient was admitted to the hospital for hematemesis as per longterm. Patient's hemoglobin on presentation was 9.7. She was given one liter of fluid and the following day hemoglobin was 7.6. Her hemoglobin remained stable for the rest of her stay. GI consult, Dr. Shoemaker spoke with family members about risks and benefits of EGD. They decided not to do EGD and monitor patient off Plavix. Patients plavix will be held for now and reevaluated by PCP. Patient's iron studies were all within normal limits. Patient was found to have a UTI on admission, leukocyte esterase of 3+ and 95 WBC's. Patient was treated with Ceftriaxone for three days. Patient will finish treatment of Ceftin 500 mg BID for 4 days. Patient's A1C was found to be 10.2. Patient's glucose was being treated with sliding scale insulin. Levimir 8 units in the morning was started for the patient and will be continued outpatient, as well as continuing her home medications. Patient is discharged back to longterm with f/u instructions to see Dr. Mccormick. Date of Discharge: 11/29/17 Minutes to complete discharge: 40 Discharge Summary Reason For Visit: UPPER GI HEMORRHAGE,ANEMIA,HYPONATREMIA,EROSIVE Current Active Problems Anemia (Acute) Diabetes (Chronic) Condition: Stable - Instructions Diet, Activity, Other Instructions: You were admitted to the hospital for vomiting blood. We monitored your hemoglobin, which is a measure of your blood count, during your stay here. Your hemoglobin levels are okay for you to be discharged at this time. You were found to have a urinary tract infection while you were here. You should continue to take the antibiotic Ceftin 500 mg twice a day for four days to treat the infection. During your stay here we added insulin medication (Levemir) to be taken to help control your sugar levels. Please take 8 units of Levemir in the morning. Use the sliding scale insulin as needed with your sugar levels, as instructed on the medication. Your Plavix will be held for now since you have a low hemoglobin , follow up with your primary care doctor within one week to see when to restart your Plavix. You may continue your home medications as prescribed. Please follow up with your primary care doctor within one week. Also Follow with the rigging foreman within a week. Have your CBC to be repeated within a week. Please return to the Emergency Department if you experience any nausea, vomiting , diarrhea, chest pain, or shortness of breath. Referrals: Leo Mccormick MD [Staff Physician] - 1 Week Disposition: [facility] - Home Medications Comprehensive Discharge Medication List: Ambulatory Orders Acetaminophen [Tylenol .Extra-Strength -] 1,000 mg PO Q8H PRN #0 tablet Brimonidine Tartrate [Alphagan 0.2% -] 1 drop OU BID #0 drops 02/04/14 Latanoprost 0.005% Eye Drops [Xalatan 0.005% Eye Drops -] 1 drop OU HS #0 drops 02/04/14 Atorvastatin Ca [Lipitor] 40 mg PO HS tablet 09/25/17 Cholecalciferol (Vitamin D3) [Vitamin D -] 50,000 unit PO WEEKLY #0 unit Docusate Sodium [Colace] 100 mg PO BID #0 cap 09/25/17 Gabapentin [Neurontin -] 100 mg PO HS #0 cap 09/25/17 Lisinopril [Prinivil] 20 mg PO DAILY #0 tab 09/25/17 Magnesium Hydrox 2400MG/30Ml [Milk of Magnesia -] 30 ml PO DAILY PRN #0 ml 09/25 Metoprolol Succinate [Toprol XL -] 12.5 mg PO DAILY tab.sr.24h 09/25/17 Mirtazapine [Remeron -] 30 mg PO HS #0 tab 09/25/17 Pantoprazole Sodium [Protonix -] 40 mg PO HS tablet.ec 09/25/17 Polyethylene Glycol 3350 [Miralax 119 gm Btl -] 17 gm PO BID PRN #0 bottle 09/25 Sennosides [Senna] 2 tab PO HS #0 tab 09/25/17 Sitagliptin Phosphate [Januvia] 100 mg PO DAILY #30 tablet 09/25/17 Cefuroxime Axetil [Ceftin -] 500 mg PO BID #8 tablet 11/29/17 Insulin (Levemir) [Levemir Vial] 8 units SQ DAILY units 11/29/17 Insulin Sliding Scale [Novolog Vial Sliding Scale -] 0 vial SQ Q4H units This patient is new to me today: No Emergency Visit: No Critical Care patient: No - Discharge Referral Referred to [facility] No
--- NOTE | 2017-11-29 16:47 | PN ---
GI Progress Note Subjective: No overt bleeding No BM today AXR: not officially read but does not appear to have an obstructive pattern. Stool in left colon - Objective Vital Signs: Vital Signs Temperature 97.8 F 11/29/17 09:46 Pulse Rate 98 H 11/29/17 09:46 Respiratory Rate 20 11/29/17 09:46 Blood Pressure 156/74 11/29/17 09:46 O2 Sat by Pulse Oximetry (%) 100 11/29/17 11:30 Constitutional: Calm Cardiovascular: Yes: Tachycardia Gastrointestinal Inspection: No: Distention ...Auscultate: Yes: Normoactive Bowel Sounds ...Palpate: Yes: Guarding. No: Tenderness ...Percussion: No: Tympanitic Edema: No (right BKA) Neurological: Yes: Alert Labs: CBC, BMP 11/29/17 07:40 11/29/17 07:00 INR, PTT INR 1.19 (0.82-1.09) H 11/27/17 02:50 - ....Imaging X-ray: Image Reviewed Problem List - Problems (1) Anemia Assessment/Plan: Hgb continues to dwindle Possible repeat EGD later in week with patient off of plavix Still with borderline tachycardia. ? etiology. ? from hypovolemia. consider PRBC transfusion given ? unclear cardiac status. ? use of plavix Monitor H/H and for active GI bleeding Pantoprazole 40mg once daily Called Dr. Rae to discuss case Code(s): D64.9 - ANEMIA, UNSPECIFIED Qualifiers: Anemia type: unspecified type Qualified Code(s): D64.9 - Anemia, unspecified
--- NOTE | 2017-11-29 17:30 | PN ---
Physical Exam: SUBJECTIVE: Patient is a 87 y/o female with a past medical history of HTN, DM, PVD s/p R BKA, CAD, SVT and dementia who presents with hematemesis per correction. Patient is pleasantly confused and has no complaints for today. OBJECTIVE: Vital Signs Period Temp Pulse Resp BP Sys/Cabral Pulse Ox Last 24 Hr 97.8 F-98.7 F 80-105 18-20 141-159/53-96 100 GENERAL: Awake, alert HEAD: Normal with no signs of trauma. EYES: Pupils equal, round and reactive to light, extraocular movements intact NECK: Normal range of motion LUNGS: Breath sounds equal, clear to auscultation bilaterally. HEART: Regular rate and rhythm, normal S1 and S2 ABDOMEN: Soft, nontender, not distended, normoactive bowel sounds, no guarding, no rebound, no masses LOWER EXTREMITIES:1+ left DT pulse, R BKA Laboratory Results - last 24 hr 11/27/17 11/28/17 11/28/17 02:50 08:07 16:50 WBC RBC Hgb Hct MCV MCH MCHC RDW Plt Count MPV Absolute Neuts (auto) Neutrophils % Lymphocytes % Monocytes % Eosinophils % Basophils % Nucleated RBC % Sodium Potassium Chloride Carbon Dioxide Anion Gap BUN Creatinine Creat Clearance w eGFR POC Glucometer 237 Random Glucose Calcium Iron 53 TIBC 229 L Iron Saturation 23 Crossmatch See Detail 11/28/17 11/28/17 11/29/17 21:23 22:28 02:37 WBC RBC Hgb Hct MCV MCH MCHC RDW Plt Count MPV Absolute Neuts (auto) Neutrophils % Lymphocytes % Monocytes % Eosinophils % Basophils % Nucleated RBC % Sodium Potassium Chloride Carbon Dioxide Anion Gap BUN Creatinine Creat Clearance w eGFR POC Glucometer 250 242 153 Random Glucose Calcium Iron TIBC Iron Saturation Crossmatch 11/29/17 11/29/17 11/29/17 05:52 07:00 07:40 WBC 6.1 RBC 2.63 L Hgb 7.3 L Hct 21.9 L MCV 83.4 MCH 27.8 MCHC 33.3 RDW 14.7 Plt Count 185 MPV 8.1 Absolute Neuts (auto) 3.7 Neutrophils % 60.7 Lymphocytes % 26.0 Monocytes % 9.4 Eosinophils % 3.6 Basophils % 0.3 Nucleated RBC % 0 Sodium 142 Potassium 4.0 Chloride 109 H Carbon Dioxide 22 Anion Gap 11 BUN 22 H Creatinine 0.8 Creat Clearance w eGFR > 60 POC Glucometer 183 Random Glucose 194 H Calcium 8.7 Iron TIBC Iron Saturation Crossmatch 11/29/17 11/29/17 11/29/17 10:31 11:30 13:45 WBC RBC Hgb Hct MCV MCH MCHC RDW Plt Count MPV Absolute Neuts (auto) Neutrophils % Lymphocytes % Monocytes % Eosinophils % Basophils % Nucleated RBC % Sodium Potassium Chloride Carbon Dioxide Anion Gap BUN Creatinine Creat Clearance w eGFR POC Glucometer 235 232 207 Random Glucose Calcium Iron TIBC Iron Saturation Crossmatch Active Medications Generic Name Dose Route Start Last Admin Trade Name Freq PRN Reason Stop Dose Admin Acetaminophen 1,000 mg 11/27/17 17:09 Tylenol - PO Q8H PRN FEVER Atorvastatin Calcium 40 mg 11/27/17 22:00 11/28/17 22:24 Lipitor - PO 40 mg HS JAIRON Administration Docusate Sodium 100 mg 11/27/17 22:00 11/29/17 09:38 Colace - PO 100 mg BID JAIRON Administration Ergocalciferol 50,000 unit 11/27/17 17:46 11/27/17 19:31 Drisdol - PO 50,000 unit Tuttle@1000 JAIRON Administration Gabapentin 100 mg 11/27/17 22:00 11/28/17 22:23 Neurontin - PO 100 mg HS JAIRON Administration Ceftriaxone Sodium 1 gm/ 100 mls @ 200 mls/hr 11/27/17 15:00 11/29/17 09:38 Dextrose IVPB 200 mls/hr DAILY JAIRON Administration Insulin Aspart 0 vial 11/27/17 10:30 11/29/17 12:01 Novolog Vial Sliding Scale - SQ 4 units Q4H JAIRON Administration Protocol Insulin Detemir 8 units 11/29/17 10:45 11/29/17 10:43 Levemir Vial SQ 8 units ACBK JAIRON Administration Latanoprost 1 drop 11/27/17 22:00 11/28/17 22:23 Xalatan 0.005% Eye Drops - OU 1 drop HS JAIRON Administration Mirtazapine 30 mg 11/27/17 22:00 11/28/17 22:23 Remeron - PO 30 mg HS JAIRON Administration Pantoprazole Sodium 40 mg 11/29/17 10:00 11/29/17 09:38 Protonix - PO 40 mg DAILY JAIRON Administration Polyethylene Glycol 17 gm 11/27/17 17:09 Miralax (For Daily Use) - PO BID PRN CONSTIPATION Senna 2 tab 11/27/17 22:00 11/28/17 22:24 Senna - PO 2 tab HS JAIRON Administration Sitagliptin Phosphate 50 mg 11/28/17 07:00 11/29/17 07:06 Januvia - PO 50 mg ACBK JAIRON Administration ASSESSMENT/PLAN: Patient is a 87 y/o female with a past medical history of HTN, DM, PVD s/p R BKA, CAD, SVT and dementia who presents with hematemesis and anemia #Hematemesis - Per GI suspected due to acute ileus/ gastroparesis due to hyperglycemia - HGB: 7.3, iron studies all within normal limits - IV Protonix 40 mg BID - FOBT + in ED, negative per GI - 1 unit PRBC, f/u Hgb, 20 mg IV lasix post transfusion #UTI -Ceftrixaone 1 gm (day 3) -UA: 3+ glucose, 3+ leukocyte esterase, WBC: 95, 37 hyaline casts -WBC: 11.9> 8.6> 6.1 #Prerenal TRAY : resolved - BUN: 32 Cr: .9 - NS @ 75 (1L) 11/27 #Hyperglycemia -insulin sliding scale - home medications: januvia renally dosed 50 mg - metformin held for now - A1C: 10.2 #HLD -continue atorvastatin #HTN -home meds held for now Dispo: monitor on abx for now, f/u GI for EGD inpatient or outpatient Visit type - Emergency Visit Emergency Visit: Yes ED Registration Date: 11/27/17 Care time: The patient presented to the Emergency Department on the above date and was hospitalized for further evaluation of their emergent condition. - New Patient This patient is new to me today: Yes Date on this admission: 11/29/17 - Critical Care Critical Care patient: No
--- NOTE | 2017-11-29 21:56 | PN ---
Teaching Attending Note Name of Resident: Nanette Varma ATTENDING PHYSICIAN STATEMENT I saw and evaluated the patient. I reviewed the resident's note and discussed the case with the resident. I agree with the resident's findings and plan as documented. SUBJECTIVE: Patien tis comfortable with no acute distress. OBJECTIVE: Vital Signs Temperature 98.2 F 11/29/17 16:30 Pulse Rate 105 H 11/29/17 16:30 Respiratory Rate 18 11/29/17 20:13 Blood Pressure 141/96 11/29/17 16:30 O2 Sat by Pulse Oximetry (%) 99 11/29/17 20:13 CBCD WBC 6.1 K/mm3 (4.0-10.0) 11/29/17 07:40 RBC 2.63 M/mm3 (3.60-5.2) L 11/29/17 07:40 Hgb 7.3 GM/dL (10.7-15.3) L 11/29/17 07:40 Hct 21.9 % (32.4-45.2) L 11/29/17 07:40 MCV 83.4 fl (80-96) 11/29/17 07:40 MCHC 33.3 g/dl (32.0-36.0) 11/29/17 07:40 RDW 14.7 % (11.6-15.6) 11/29/17 07:40 Plt Count 185 K/MM3 (134-434) 11/29/17 07:40 MPV 8.1 fl (7.5-11.1) 11/29/17 07:40 CMP Sodium 142 mmol/L (136-145) 11/29/17 07:00 Potassium 4.0 mmol/L (3.5-5.1) 11/29/17 07:00 Chloride 109 mmol/L (98-107) H 11/29/17 07:00 Carbon Dioxide 22 mmol/L (21-32) 11/29/17 07:00 Anion Gap 11 (8-16) 11/29/17 07:00 BUN 22 mg/dL (7-18) H 11/29/17 07:00 Creatinine 0.8 mg/dL (0.55-1.02) 11/29/17 07:00 Creat Clearance w eGFR > 60 (>60) 11/29/17 07:00 Random Glucose 194 mg/dL (74-106) H 11/29/17 07:00 Calcium 8.7 mg/dL (8.5-10.1) 11/29/17 07:00 Total Bilirubin 0.1 mg/dL (0.2-1.0) L 11/28/17 08:07 AST 27 U/L (15-37) 11/28/17 08:07 ALT 20 U/L (12-78) 11/28/17 08:07 Alkaline Phosphatase 59 U/L (45-117) D 11/28/17 08:07 Total Protein 5.8 g/dl (6.4-8.2) L 11/28/17 08:07 Albumin 2.9 g/dl (3.4-5.0) L 11/28/17 08:07 CARDIAC ENZYMES Troponin I 0.08 ng/ml (0.00-0.05) H 11/27/17 04:39 Current Medications Generic Name Dose Route Start Last Admin Trade Name Freq PRN Reason Stop Dose Admin Acetaminophen 1,000 mg 11/27/17 17:09 Tylenol - PO Q8H PRN FEVER Atorvastatin Calcium 40 mg 11/27/17 22:00 11/28/17 22:24 Lipitor - PO 40 mg HS JAIRON Administration Docusate Sodium 100 mg 11/27/17 22:00 11/29/17 09:38 Colace - PO 100 mg BID JAIRON Administration Ergocalciferol 50,000 unit 11/27/17 17:46 11/27/17 19:31 Drisdol - PO 50,000 unit Tuttle@1000 JAIRON Administration Furosemide 20 mg 11/29/17 17:20 Lasix Injection - IVPUSH 11/29/17 17:21 ONCE ONE Gabapentin 100 mg 11/27/17 22:00 11/28/17 22:23 Neurontin - PO 100 mg HS JAIRON Administration Ceftriaxone Sodium 1 gm/ 100 mls @ 200 mls/hr 11/27/17 15:00 11/29/17 09:38 Dextrose IVPB 200 mls/hr DAILY JAIRON Administration Insulin Aspart 1 vial 11/29/17 22:00 11/29/17 17:30 Novolog Vial Sliding Scale - SQ 4 units ACHS JAIRON Administration Protocol Insulin Detemir 8 units 11/29/17 10:45 11/29/17 10:43 Levemir Vial SQ 8 units ACBK JARION Administration Latanoprost 1 drop 11/27/17 22:00 11/28/17 22:23 Xalatan 0.005% Eye Drops - OU 1 drop HS JAIRON Administration Mirtazapine 30 mg 11/27/17 22:00 11/28/17 22:23 Remeron - PO 30 mg HS JAIRON Administration Pantoprazole Sodium 40 mg 11/29/17 10:00 11/29/17 09:38 Protonix - PO 40 mg DAILY JAIRON Administration Polyethylene Glycol 17 gm 11/27/17 17:09 Miralax (For Daily Use) - PO BID PRN CONSTIPATION Senna 2 tab 11/27/17 22:00 11/28/17 22:24 Senna - PO 2 tab HS JAIRON Administration Sitagliptin Phosphate 50 mg 11/28/17 07:00 11/29/17 07:06 Januvia - PO 50 mg ACBK JAIRON Administration PE: per resident's note ASSESSMENT AND PLAN: Patient is a 87 y/o female with a past medical history of HTN, DM, PVD s/p R BKA, CAD, SVT and dementia who presents with hematemesis and anemia # Anemia due to acute blood loss: H/h in am. One unit of PRBC today , possile EGD on Tuesday, discussed with #Hematemesis possible due PUD on Protonix continue #UTI Ceftrixaone 1 gm (day 3) #Prerenal TRAY : resolved #Hyperglycemia insulin sliding scale; home medications: januvia renally dosed 50 mg, metformin held for now,A1C: 10.2, started on Levemir 8 units in am #HLD continue atorvastatin #HTN continue meds Possible EGD on Tuesday .check with Patient is going for transfusion x 1 unit, recheck H/H
[2017-11-29] MEDS ORDERED: PT OWN MED DRAWER 7, Y5N ONE (22:22)
[2017-11-29] MEDS ORDERED: FUROSEMIDE 40 MG/4 ML INJECTABLE VIAL IVPUSH ONE (22:30)
[2017-11-29] MEDS: SENNOSIDES 8.6MG TABLET (FP) PO SCH (22:31)
[2017-11-29] MEDS: LATANOPROST 0.005% OPHTH SOLN 2.5ML BOTTLE OU SCH (22:31)
[2017-11-29] MEDS: GABAPENTIN 100 MG CAPSULE (FP) PO SCH (22:31)
[2017-11-29] MEDS: ATORVASTATIN CA 40 MG TABLET (FP) PO SCH (22:31)
[2017-11-29] MEDS: MIRTAZAPINE 15 MG TABLET (FP) PO SCH (22:31)
[2017-11-30] MEDS: INSULIN SLIDING SCALE (NOVOLOG) 1 VIAL SQ SCH ×4 (06:14→21:27)
[2017-11-30] MEDS: sitaGLIPtin PHOSPHATE 50 MG TABLET PO SCH (06:14)
[2017-11-30] MEDS: INSULIN (LEVEMIR) 100 UNITS/ML UNITS SQ SCH (06:15)
[2017-11-30 08:31] LABS: BASO % 0.3 % (0-2.0); EOS % 3.5 % (0-4.5); HEMATOCRIT 29.8 % (32.4-45.2); HEMOGLOBIN 10.3 GM/dL (10.7-15.3); MCH 28.3 pg (25.7-33.7); MCHC 34.4 g/dl (32.0-36.0); MEAN CELL VOLUME 82.3 fl (80-96); MEAN PLT VOLUME 8.4 fl (7.5-11.1); MONO % 10.7 % (3.8-10.2); NEUT % 53.5 % (42.8-82.8); PLATELET COUNT 199 K/MM3 (134-434); RBC 3.62 M/mm3 (3.60-5.2); RDW 14.6 % (11.6-15.6)
[2017-11-30 09:03] LABS: BLOOD UREA NITROGEN 16 mg/dL (7-18); CALCIUM 8.5 mg/dL (8.5-10.1); CHLORIDE 107 mmol/L (98-107); GLUCOSE,RANDOM 150 mg/dL (74-106); POTASSIUM 3.5 mmol/L (3.5-5.1); SODIUM 143 mmol/L (136-145)
[2017-11-30 09:05] LABS: ANION GAP 8 (8-16); CO2 28 mmol/L (21-32); CREATININE 0.9 mg/dL (0.55-1.02)
[2017-11-30] MEDS ORDERED: INSULIN (NOVOLOG) ASPART 100 UNITS/ML 10ML VIAL ONE ×4 (09:19→21:26)
[2017-11-30] MEDS ORDERED: INSULIN (LEVEMIR) 100 UNITS/ML UNITS SQ ONE (09:19)
[2017-11-30] MEDS ORDERED: DEXTROSE 5%-WATER 100 ML IVPB ONE (10:37)
[2017-11-30] MEDS ORDERED: cefTRIAXone SODIUM 1 GM VIAL ONE (10:37)
[2017-11-30] MEDS: PANTOPRAZOLE 40 MG TABLET (FP) PO SCH (10:50)
[2017-11-30] MEDS: CEFTRIAXONE 1 GM in DEXTROSE 5%-WATER 100 ML IVPB SCH (10:50)
[2017-11-30] MEDS: DOCUSATE SODIUM 100 MG CAPSULE (FP) PO SCH ×2 (10:50→21:26)
--- NOTE | 2017-11-30 15:14 | PN ---
Physical Exam: SUBJECTIVE: Patient is a 87 y/o female with a past medical history of HTN, DM, PVD s/p R BKA, CAD, SVT and dementia who presents with hematemesis per shelter. Patient is pleasantly confused and has no complaints for today. EGD scheduled for tomorrow. OBJECTIVE: Vital Signs Period Temp Pulse Resp BP Sys/Cabral Pulse Ox Last 24 Hr 97.4 F-99.0 F 84-105 16-20 139-159/53-96 99 GENERAL: Awake, alert HEAD: Normal with no signs of trauma. EYES: Pupils equal, round and reactive to light, extraocular movements intact NECK: Normal range of motion LUNGS: Breath sounds equal, clear to auscultation bilaterally. HEART: Regular rate and rhythm, normal S1 and S2 ABDOMEN: Soft, nontender, not distended, normoactive bowel sounds, no guarding, no rebound, no masses LOWER EXTREMITIES:1+ left DT pulse, R BKA NEUROLOGICAL: Cranial nerves II-XII intact. Normal speech. Laboratory Results - last 24 hr 11/27/17 11/29/17 11/29/17 02:50 17:07 22:29 WBC RBC Hgb Hct MCV MCH MCHC RDW Plt Count MPV Absolute Neuts (auto) Neutrophils % Lymphocytes % Monocytes % Eosinophils % Basophils % Nucleated RBC % Sodium Potassium Chloride Carbon Dioxide Anion Gap BUN Creatinine Creat Clearance w eGFR POC Glucometer 218 236 Random Glucose Calcium Blood Type O POSITIVE Antibody Screen Negative Crossmatch See Detail 11/30/17 11/30/17 11/30/17 05:41 06:30 06:30 WBC 7.0 RBC 3.62 Hgb 10.3 L Hct 29.8 L D MCV 82.3 MCH 28.3 MCHC 34.4 RDW 14.6 Plt Count 199 MPV 8.4 Absolute Neuts (auto) 3.7 Neutrophils % 53.5 Lymphocytes % 32.0 D Monocytes % 10.7 H Eosinophils % 3.5 Basophils % 0.3 Nucleated RBC % 0 Sodium 143 Potassium 3.5 Chloride 107 Carbon Dioxide 28 Anion Gap 8 BUN 16 Creatinine 0.9 Creat Clearance w eGFR 58.95 POC Glucometer 172 Random Glucose 150 H Calcium 8.5 Blood Type Antibody Screen Crossmatch 11/30/17 11:53 WBC RBC Hgb Hct MCV MCH MCHC RDW Plt Count MPV Absolute Neuts (auto) Neutrophils % Lymphocytes % Monocytes % Eosinophils % Basophils % Nucleated RBC % Sodium Potassium Chloride Carbon Dioxide Anion Gap BUN Creatinine Creat Clearance w eGFR POC Glucometer 227 Random Glucose Calcium Blood Type Antibody Screen Crossmatch Active Medications Generic Name Dose Route Start Last Admin Trade Name Freq PRN Reason Stop Dose Admin Acetaminophen 1,000 mg 11/27/17 17:09 Tylenol - PO Q8H PRN FEVER Atorvastatin Calcium 40 mg 11/27/17 22:00 11/29/17 22:31 Lipitor - PO 40 mg HS JAIRON Administration Docusate Sodium 100 mg 11/27/17 22:00 11/30/17 10:50 Colace - PO 100 mg BID JAIRON Administration Ergocalciferol 50,000 unit 11/27/17 17:46 11/27/17 19:31 Drisdol - PO 50,000 unit Tuttle@1000 JAIRON Administration Gabapentin 100 mg 11/27/17 22:00 11/29/17 22:31 Neurontin - PO 100 mg HS JAIRON Administration Insulin Aspart 1 vial 11/29/17 22:00 11/30/17 11:54 Novolog Vial Sliding Scale - SQ 4 units ACHS JAIRON Administration Protocol Insulin Detemir 8 units 11/29/17 10:45 11/30/17 06:15 Levemir Vial SQ 8 units ACBK JAIRON Administration Latanoprost 1 drop 11/27/17 22:00 11/29/17 22:31 Xalatan 0.005% Eye Drops - OU 1 drop HS JAIRON Administration Mirtazapine 30 mg 11/27/17 22:00 11/29/17 22:31 Remeron - PO 30 mg HS JAIRON Administration Pantoprazole Sodium 40 mg 11/29/17 10:00 11/30/17 10:50 Protonix - PO 40 mg DAILY JAIRON Administration Polyethylene Glycol 17 gm 11/27/17 17:09 Miralax (For Daily Use) - PO BID PRN CONSTIPATION Senna 2 tab 11/27/17 22:00 11/29/17 22:31 Senna - PO 2 tab HS JAIRON Administration Sitagliptin Phosphate 50 mg 11/28/17 07:00 11/30/17 06:14 Januvia - PO 50 mg ACBK JAIRON Administration ASSESSMENT/PLAN: Patient is a 87 y/o female with a past medical history of HTN, DM, PVD s/p R BKA, CAD, SVT and dementia who presents with hematemesis. #Hematemesis - Per GI suspected due to acute ileus/ gastroparesis due to hyperglycemia - f/u HGB: 7.6, and iron studies - Hgb: 10.3 post transfusion, lasix 40 post transfusion - Protonix 40 mg po daily - FOBT + in ED, negative per GI - EGD scheduled for Tuesday #UTI -Ceftrixaone 1 gm (day 3) -UA: 3+ glucose, 3+ leukocyte esterase, WBC: 95, 37 hyaline casts -WBC: 11.9> 8.6>6 - f/u Ucx #Hyperglycemia - insulin sliding scale - home medications: januvia renally dosed 50 mg - Levemir 8 units added - metformin held for now - A1C: 10.2 #Prerenal TRAY : resolved - BUN: 32 Cr: .9 - NS @ 75 (1L) 11/27 #HLD -continue atorvastatin #HTN -home meds held for now Dispo: D/C tuesday post EGD Visit type - Emergency Visit Emergency Visit: No - New Patient This patient is new to me today: No - Critical Care Critical Care patient: No
--- NOTE | 2017-11-30 20:04 | PN ---
Teaching Attending Note Name of Resident: Nanette Varma ATTENDING PHYSICIAN STATEMENT I saw and evaluated the patient. I reviewed the resident's note and discussed the case with the resident. I agree with the resident's findings and plan as documented. SUBJECTIVE: No fever or chills, no abd pain, no events OBJECTIVE: NAD. MMM CV: RRR, 2/6 SM at RUSB. Lungs: CTAB Ext: no edema or erythema. R BKA with clean stump with no skin breakdown Abd: soft, NT, ND , NL BS ASSESSMENT AND PLAN: 87 y/o lady with h/o dementia , CAD, PVD, R BKA, DM , HTN, And SVt who was brought form [place] with hematemesis 1- Acute blood loss anemia due to upper GI bleed . s/p blood transfusion . last EGD 10/07 with gastritis and neg path for malignancy and helicobater pylori. - monitor HB - cont off plavix - for EGD possibly Tuesday. GI to decide on timing 2- h/o CAD, had NsTEMI last admission - resume low dose lisinopril - can resume BB after EGD - plavix on hold - cont lipitor 3- UTI: switch to po . 4- DM : cont januvia and insulin disp o: HLOC
[2017-11-30] MEDS: GABAPENTIN 100 MG CAPSULE (FP) PO SCH (21:27)
[2017-11-30] MEDS: MIRTAZAPINE 15 MG TABLET (FP) PO SCH (21:27)
[2017-11-30] MEDS: SENNOSIDES 8.6MG TABLET (FP) PO SCH (21:27)
[2017-11-30] MEDS: ATORVASTATIN CA 40 MG TABLET (FP) PO SCH (21:27)
[2017-11-30] MEDS: LATANOPROST 0.005% OPHTH SOLN 2.5ML BOTTLE OU SCH (21:29)
[2017-11-30] MEDS ORDERED: CEFUROXIME AXETIL 500 MG TABLET PO SCH (22:00)
--- NOTE | 2017-12-01 06:15 | PN ---
Physical Exam: SUBJECTIVE: Patient is a 87 y/o female with a past medical history of HTN, DM, PVD s/p R BKA, CAD, SVT and dementia who presents with hematemesis per retirement. Patient is pleasantly confused and has no complaints for today. EGD scheduled for tomorrow. OBJECTIVE: Vital Signs Period Temp Pulse Resp BP Sys/Cabral Pulse Ox Last 24 Hr 97.4 F-98.2 F 78-85 16-20 134-147/59-71 100-100 GENERAL: Awake, alert HEAD: Normal with no signs of trauma. EYES: Pupils equal, round and reactive to light, extraocular movements intact NECK: Normal range of motion LUNGS: Breath sounds equal, clear to auscultation bilaterally. HEART: Regular rate and rhythm, normal S1 and S2 ABDOMEN: Soft, nontender, not distended, normoactive bowel sounds, no guarding, no rebound, no masses LOWER EXTREMITIES:1+ left DT pulse, R BKA NEUROLOGICAL: Cranial nerves II-XII intact. Normal speech. Laboratory Results - last 24 hr 11/30/17 11/30/17 11/30/17 06:30 06:30 11:53 WBC 7.0 RBC 3.62 Hgb 10.3 L Hct 29.8 L D MCV 82.3 MCH 28.3 MCHC 34.4 RDW 14.6 Plt Count 199 MPV 8.4 Absolute Neuts (auto) 3.7 Neutrophils % 53.5 Lymphocytes % 32.0 D Monocytes % 10.7 H Eosinophils % 3.5 Basophils % 0.3 Nucleated RBC % 0 Sodium 143 Potassium 3.5 Chloride 107 Carbon Dioxide 28 Anion Gap 8 BUN 16 Creatinine 0.9 Creat Clearance w eGFR 58.95 POC Glucometer 227 Random Glucose 150 H Calcium 8.5 11/30/17 11/30/17 17:20 21:24 WBC RBC Hgb Hct MCV MCH MCHC RDW Plt Count MPV Absolute Neuts (auto) Neutrophils % Lymphocytes % Monocytes % Eosinophils % Basophils % Nucleated RBC % Sodium Potassium Chloride Carbon Dioxide Anion Gap BUN Creatinine Creat Clearance w eGFR POC Glucometer 122 169 Random Glucose Calcium Active Medications Generic Name Dose Route Start Last Admin Trade Name Freq PRN Reason Stop Dose Admin Acetaminophen 1,000 mg 11/27/17 17:09 Tylenol - PO Q8H PRN FEVER Atorvastatin Calcium 40 mg 11/27/17 22:00 11/30/17 21:27 Lipitor - PO 40 mg HS JAIRON Administration Cefuroxime Axetil 250 mg 12/01/17 10:00 Ceftin - PO BID JAIRON Docusate Sodium 100 mg 11/27/17 22:00 11/30/17 21:26 Colace - PO 100 mg BID JAIRON Administration Ergocalciferol 50,000 unit 11/27/17 17:46 11/27/17 19:31 Drisdol - PO 50,000 unit Tuttle@1000 JAIRON Administration Gabapentin 100 mg 11/27/17 22:00 11/30/17 21:27 Neurontin - PO 100 mg HS JAIRON Administration Insulin Aspart 1 vial 11/29/17 22:00 11/30/17 21:27 Novolog Vial Sliding Scale - SQ 2 units ACHS JAIRON Administration Protocol Insulin Detemir 8 units 11/29/17 10:45 11/30/17 06:15 Levemir Vial SQ 8 units ACBK JAIRON Administration Latanoprost 1 drop 11/27/17 22:00 11/30/17 21:29 Xalatan 0.005% Eye Drops - OU 1 drop HS JAIRON Administration Lisinopril 10 mg 12/01/17 10:00 Prinivil PO DAILY JAIRON Mirtazapine 30 mg 11/27/17 22:00 11/30/17 21:27 Remeron - PO 30 mg HS JAIRON Administration Pantoprazole Sodium 40 mg 11/29/17 10:00 11/30/17 10:50 Protonix - PO 40 mg DAILY JAIRON Administration Polyethylene Glycol 17 gm 11/27/17 17:09 Miralax (For Daily Use) - PO BID PRN CONSTIPATION Senna 2 tab 11/27/17 22:00 11/30/17 21:27 Senna - PO 2 tab HS JAIRON Administration Sitagliptin Phosphate 50 mg 11/28/17 07:00 11/30/17 06:14 Januvia - PO 50 mg ACBK JAIRON Administration ASSESSMENT/PLAN: Patient is a 87 y/o female with a past medical history of HTN, DM, PVD s/p R BKA, CAD, SVT and dementia who presents with hematemesis. #Hematemesis - Per GI suspected due to acute ileus/ gastroparesis due to hyperglycemia - iron studeis WNL - Hgb: 10.3>10.9s/p day 1 transfusion - Protonix 40 mg po daily - FOBT + in ED, negative per GI - EGD scheduled for Tuesday - will hold plavix for now and for D/C, spoke with Mary Beth Miguel who has plan to discuss plavix with doctors/retirement and decide if it is necessary to continue after she has been discharged #UTI -Ceftrixaone 1 gm (day 3), switched to Ceftin po ( day 2) -UA: 3+ glucose, 3+ leukocyte esterase, WBC: 95, 37 hyaline casts -WBC: 11.9> 8.6>6 - f/u Ucx #Hyperglycemia - insulin sliding scale - home medications: januvia renally dosed 50 mg - Levemir 8 units added - metformin held for now - A1C: 10.2 #Prerenal TRAY : resolved - BUN: 32 Cr: .9 - NS @ 75 (1L) 11/27 #HLD -continue atorvastatin #HTN -home meds held for now Dispo: D/C Tuesday morning post EGD tuesday, discuss with social work tomorrow Visit type - Emergency Visit Emergency Visit: No - New Patient This patient is new to me today: No - Critical Care Critical Care patient: No
[2017-12-01] MEDS: sitaGLIPtin PHOSPHATE 50 MG TABLET PO SCH (06:26)
[2017-12-01] MEDS: INSULIN SLIDING SCALE (NOVOLOG) 1 VIAL SQ SCH ×4 (06:27→22:20)
[2017-12-01] MEDS: INSULIN (LEVEMIR) 100 UNITS/ML UNITS SQ SCH ×2 (06:27→09:34)
[2017-12-01] MEDS ORDERED: PT OWN MED DRAWER 7, Y5N ONE ×5 (06:50→22:13)
[2017-12-01] MEDS ORDERED: INSULIN (NOVOLOG) ASPART 100 UNITS/ML 10ML VIAL ONE ×2 (07:09→18:53)
[2017-12-01] MEDS ORDERED: INSULIN (LEVEMIR) 100 UNITS/ML UNITS SQ ONE ×2 (07:10→18:53)
[2017-12-01 08:45] LABS: BASO % 0.4 % (0-2.0); EOS % 4.3 % (0-4.5); HEMATOCRIT 31.9 % (32.4-45.2); HEMOGLOBIN 10.9 GM/dL (10.7-15.3); LYMPH % 34.3 % (8-40); MCH 28.2 pg (25.7-33.7); MCHC 34.1 g/dl (32.0-36.0); MEAN CELL VOLUME 82.7 fl (80-96); MEAN PLT VOLUME 8.3 fl (7.5-11.1); MONO % 11.2 % (3.8-10.2); NEUT % 49.8 % (42.8-82.8); PLATELET COUNT 221 K/MM3 (134-434); RBC 3.86 M/mm3 (3.60-5.2); RDW 14.7 % (11.6-15.6); WHITE BLOOD COUNT 6.9 K/mm3 (4.0-10.0)
--- NOTE | 2017-12-01 08:49 | PN ---
Progress Note (short form) - Note Progress Note: No overt bleeding reported s/p 1 [facility] Discussed plan for EGD tomorrow with myron richmond, Ms. Myriam's daughter in law and health care proxy (patient's son jossue deferred medical decision making to his ). We reviewed potential risks of the procedure like but not limioted to bleeding perforation requiring surgery to repair, infection, sedation medication effects all of which could be potentially life threatening. She has agreed to the procedure Plan for Problem List - Problems (1) Anemia Code(s): D64.9 - ANEMIA, UNSPECIFIED Qualifiers: Anemia type: unspecified type Qualified Code(s): D64.9 - Anemia, unspecified
[2017-12-01] MEDS: PANTOPRAZOLE 40 MG TABLET (FP) PO SCH (09:32)
[2017-12-01] MEDS: DOCUSATE SODIUM 100 MG CAPSULE (FP) PO SCH ×2 (09:32→22:19)
[2017-12-01] MEDS: CEFUROXIME AXETIL 250 MG TABLET PO SCH ×2 (09:32→22:20)
[2017-12-01] MEDS: LISINOPRIL 10 MG TABLET (FP) PO SCH (09:32)
--- NOTE | 2017-12-01 16:24 | PN ---
Teaching Attending Note Name of Resident: Nanette Varma ATTENDING PHYSICIAN STATEMENT I saw and evaluated the patient. I reviewed the resident's note and discussed the case with the resident. I agree with the resident's findings and plan as documented. SUBJECTIVE: no pain or events . NO GI bleed OBJECTIVE: NAD. MMM CV: RRR, 2/6 SM at RUSB. Lungs: CTAB Ext: no edema or erythema. R BKA with clean stump with no skin breakdown Abd: soft, NT, ND , NL BS ASSESSMENT AND PLAN: 87 y/o lady with h/o dementia , CAD, PVD, R BKA, DM , HTN, And SVt who was brought form [place] with hematemesis 1- Acute blood loss anemia due to upper GI bleed . s/p blood transfusion . - monitor HB - cont off plavix - for EGD tomorrow 2- h/o CAD, had NSTEMI last admission - tolerated low dose lisinopril - can resume BB after EGD - plavix on hold - cont lipitor - this lady is high risk for recurrent bleed with plavix but at same time has PVD and CAD , no stents as per chart review. will d/w GI and family risks and benefits of plavix 3- UTI:day 5 of abx 4- DM : cont januvia and insulin dispo: HLOC b ASSESSMENT AND PLAN:
[2017-12-01] MEDS: GABAPENTIN 100 MG CAPSULE (FP) PO SCH (22:19)
[2017-12-01] MEDS: ATORVASTATIN CA 40 MG TABLET (FP) PO SCH (22:19)
[2017-12-01] MEDS: SENNOSIDES 8.6MG TABLET (FP) PO SCH (22:19)
[2017-12-01] MEDS: LATANOPROST 0.005% OPHTH SOLN 2.5ML BOTTLE OU SCH (22:19)
[2017-12-01] MEDS: MIRTAZAPINE 15 MG TABLET (FP) PO SCH (22:19)
[2017-12-02] MEDS ORDERED: PT OWN MED DRAWER 7, Y5N ONE ×4 (00:36→11:23)
[2017-12-02] MEDS: INSULIN SLIDING SCALE (NOVOLOG) 1 VIAL SQ SCH ×3 (06:29→17:49)
[2017-12-02 07:58] LABS: HEMATOCRIT 30.4 % (32.4-45.2); HEMOGLOBIN 10.2 GM/dL (10.7-15.3); MCH 28.3 pg (25.7-33.7); MCHC 33.6 g/dl (32.0-36.0); MEAN CELL VOLUME 84.1 fl (80-96); PLATELET COUNT 208 K/MM3 (134-434); RBC 3.61 M/mm3 (3.60-5.2); RDW 14.7 % (11.6-15.6); WHITE BLOOD COUNT 7.6 K/mm3 (4.0-10.0)
[2017-12-02] MEDS ORDERED: PROPOFOL 20 ML ONE ×2 (08:19)
[2017-12-02] MEDS ORDERED: LIDOCAINE HCL/PF 2% SDV 5ML VIAL ONE (08:19)
--- NOTE | 2017-12-02 08:30 | PN ---
Physical Exam: SUBJECTIVE: Patient is a 87 y/o female with a past medical history of HTN, DM, PVD s/p R BKA, CAD, SVT and dementia who presents with hematemesis per fpc. Patient is pleasantly confused and has no complaints for today. EGD today. OBJECTIVE: Vital Signs Period Temp Pulse Resp BP Sys/Cabral Pulse Ox Last 24 Hr 98.1 F-98.6 F 78-87 20-20 123-152/64-72 100-100 GENERAL: Awake, alert HEAD: Normal with no signs of trauma. EYES: Pupils equal, round and reactive to light, extraocular movements intact NECK: Normal range of motion LUNGS: Breath sounds equal, clear to auscultation bilaterally. HEART: Regular rate and rhythm, normal S1 and S2 ABDOMEN: Soft, nontender, not distended, normoactive bowel sounds, no guarding, no rebound, no masses LOWER EXTREMITIES:1+ left DT pulse, R BKA NEUROLOGICAL: Cranial nerves II-XII intact. Normal speech. Laboratory Results - last 24 hr 12/01/17 12/01/17 12/01/17 07:00 12:07 17:42 WBC 6.9 RBC 3.86 Hgb 10.9 Hct 31.9 L MCV 82.7 MCH 28.2 MCHC 34.1 RDW 14.7 Plt Count 221 MPV 8.3 Absolute Neuts (auto) 3.4 Neutrophils % 49.8 Lymphocytes % 34.3 Monocytes % 11.2 H Eosinophils % 4.3 Basophils % 0.4 Nucleated RBC % 0 POC Glucometer 229 192 12/01/17 12/02/17 12/02/17 20:44 06:00 06:03 WBC 7.6 RBC 3.61 Hgb 10.2 L Hct 30.4 L MCV 84.1 MCH 28.3 MCHC 33.6 RDW 14.7 Plt Count 208 MPV 8.0 Absolute Neuts (auto) Neutrophils % Lymphocytes % Monocytes % Eosinophils % Basophils % Nucleated RBC % POC Glucometer 97 137 Active Medications Generic Name Dose Route Start Last Admin Trade Name Freq PRN Reason Stop Dose Admin Acetaminophen 1,000 mg 11/27/17 17:09 Tylenol - PO Q8H PRN FEVER Atorvastatin Calcium 40 mg 11/27/17 22:00 12/01/17 22:19 Lipitor - PO 40 mg HS JAIRON Administration Cefuroxime Axetil 250 mg 12/01/17 10:00 12/01/17 22:20 Ceftin - PO 250 mg BID JAIRON Administration Docusate Sodium 100 mg 11/27/17 22:00 12/01/17 22:19 Colace - PO 100 mg BID JAIRON Administration Ergocalciferol 50,000 unit 11/27/17 17:46 11/27/17 19:31 Drisdol - PO 50,000 unit Tuttle@1000 JAIRON Administration Gabapentin 100 mg 11/27/17 22:00 12/01/17 22:19 Neurontin - PO 100 mg HS JAIRON Administration Insulin Aspart 1 vial 11/29/17 22:00 12/02/17 06:29 Novolog Vial Sliding Scale - SQ Not Given ACHS [facility] Protocol Insulin Detemir 8 units 11/29/17 10:45 12/01/17 09:34 Levemir Vial SQ 8 units ACBK JAIRON Administration Latanoprost 1 drop 11/27/17 22:00 12/01/17 22:19 Xalatan 0.005% Eye Drops - OU 1 drop HS JAIRON Administration Lisinopril 10 mg 12/01/17 10:00 12/01/17 09:32 Prinivil PO 10 mg DAILY JAIRON Administration Mirtazapine 30 mg 11/27/17 22:00 12/01/17 22:19 Remeron - PO 30 mg HS JAIRON Administration Pantoprazole Sodium 40 mg 11/29/17 10:00 12/01/17 09:32 Protonix - PO 40 mg DAILY JAIRON Administration Polyethylene Glycol 17 gm 11/27/17 17:09 Miralax (For Daily Use) - PO BID PRN CONSTIPATION Senna 2 tab 11/27/17 22:00 12/01/17 22:19 Senna - PO 2 tab HS JAIRON Administration Sitagliptin Phosphate 50 mg 11/28/17 07:00 12/01/17 06:26 Januvia - PO Not Given ACBK [facility] ASSESSMENT/PLAN: Patient is a 87 y/o female with a past medical history of HTN, DM, PVD s/p R BKA, CAD, SVT and dementia who presents with hematemesis. #Hematemesis - Per GI suspected due to acute ileus/ gastroparesis due to hyperglycemia - iron studeis WNL - Hgb: 10.3>10.9s/p day 1 transfusion - Protonix 40 mg po daily - FOBT + in ED, negative per GI - EGD scheduled for Tuesday - will hold plavix for now and for D/C, spoke with Mary Beth Miguel who has plan to discuss plavix with doctors/fpc and decide if it is necessary to continue after she has been discharged #UTI -Ceftrixaone 1 gm (day 3), switched to Ceftin po ( day 2) -UA: 3+ glucose, 3+ leukocyte esterase, WBC: 95, 37 hyaline casts -WBC: 11.9> 8.6>6 - f/u Ucx #Hyperglycemia - insulin sliding scale - home medications: januvia renally dosed 50 mg - Levemir 8 units added - metformin held for now - A1C: 10.2 #Prerenal TRAY : resolved - BUN: 32 Cr: .9 - NS @ 75 (1L) 11/27 #HLD -continue atorvastatin #HTN -home meds held for now Dispo: D/C Tuesday morning post EGD tuesday, discuss with social work tomorrow
--- NOTE | 2017-12-02 09:28 | PN ---
Progress Note (short form) - Note Progress Note: EGD complete. Procedure report left in physical chart and to be scanned into [employer] Problem List - Problems (1) Anemia Code(s): D64.9 - ANEMIA, UNSPECIFIED Qualifiers: Anemia type: unspecified type Qualified Code(s): D64.9 - Anemia, unspecified
[2017-12-02] MEDS: DOCUSATE SODIUM 100 MG CAPSULE (FP) PO SCH (11:26)
[2017-12-02] MEDS: LISINOPRIL 10 MG TABLET (FP) PO SCH (11:26)
[2017-12-02] MEDS: PANTOPRAZOLE 40 MG TABLET (FP) PO SCH (11:26)
[2017-12-02] MEDS: CEFUROXIME AXETIL 250 MG TABLET PO SCH (11:27)
[2017-12-02] MEDS ORDERED: LISINOPRIL 20 MG TABLET (FP) PO SCH (13:30)
[2017-12-02] MEDS ORDERED: metoPROLOL SUCCINATE 25 MG TAB.SR.24H (FP) PO SCH (13:30)
--- NOTE | 2017-12-02 14:15 | PN ---
Teaching Attending Note Name of Resident: Nanette Varma ATTENDING PHYSICIAN STATEMENT I saw and evaluated the patient. I reviewed the resident's note and discussed the case with the resident. I agree with the resident's findings and plan as documented. SUBJECTIVE: No abd pain, no fever or chills. OBJECTIVE: NAD. MMM CV: RRR, 2/6 SM at RUSB. Lungs: CTAB Ext: no edema or erythema. R BKA with clean stump with no skin breakdown Abd: soft, NT, ND , NL BS ASSESSMENT AND PLAN: 87 y/o lady with h/o dementia , CAD, PVD, R BKA, DM , HTN, And SVt who was brought form [place] with hematemesis 1- Acute blood loss anemia due to upper GI bleed . s/p blood transfusion . - EGD with 2 small ulcers at GE junction . d/w Dr. grace, OK to resume plavix in 2 days . this was d/w family who will follow closely with PCP and card to determine the chronic use of plavix. 2- h/o CAD, had NSTEMI last admission - nresume all BP meds at home doses - plavix on hold - cont lipitor 3- UTI:day 6 of Abx. no need for more 4- DM : cont januvia and insulin dispo:back to [place] today
[2017-12-02 16:40] VITALS: BP 142/64; PULSE 84; TEMP 98.2
--- NOTE | 2017-12-05 10:14 | PATH ---
Surgical Pathology Report Patient Name: AVRIL MIRELES Med. Rec. #: [id number] /Age/Gender: 1930 (Age: 87) / F Account: [id number] Location: [facility] MED/SURG Taken: 12/02/2017 Received: 12/02/2017 Reported: 12/05/2017 Physicians: Mayito Beltrán D.O. Specimen(s) Received BX DISTAL ESOPHAGUS ULCER Clinical History Anemia Postoperative diagnosis: Esophagitis Final Diagnosis DISTAL ESOPHAGUS ULCER, BIOPSY: COLUMNAR EPITHELIUM SHOWING INTESTINAL METAPLASIA, MILD CHRONIC INFLAMMATION, AND FOCAL EDEMATOUS CHANGE IN THE LAMINA PROPRIA. NEGATIVE FOR DYSPLASIA. Electronically Signed Akira Jackson M.D. Gross Description Received in formalin, labeled "biopsy distal esophagus ulcer" is a stubbs, irregular portion of soft tissue measuring 0.3 cm. in greatest dimension. The specimen is submitted in toto in one cassette. 12/02/201712/02/2017
== END 2017-12-02 19:42 | DRG 369 ==
LOC: JER 01:16 → JERBED 06:21 → J8W 10:59
PROVIDERS: ADMIT Internal Medicine; ATTEND Internal Medicine
PROC: 30233N1 Transfusion of Nonautologous Red Blood Cells into Peripheral Vein, Percutaneous Approach (ICD-10-PCS; 2017-12-02)
PROC: 0DD58ZX Extraction of Esophagus, Via Natural or Artificial Opening Endoscopic, Diagnostic (ICD-10-PCS; principal; 2017-12-02 09:00)
DX: K22.6 Gastro-esophageal laceration-hemorrhage syndrome (principal); N39.0 Urinary tract infection, site not specified; N17.9 Acute kidney failure, unspecified; K56.7 Ileus, unspecified; D62 Acute posthemorrhagic anemia; K22.10 Ulcer of esophagus without bleeding; E11.51 Type 2 diabetes mellitus with diabetic peripheral angiopathy without gangrene; I25.10 Atherosclerotic heart disease of native coronary artery without angina pectoris; F03.90 Unspecified dementia, unspecified severity, without behavioral disturbance, psychotic disturbance, mood disturbance, and anxiety; I10 Essential (primary) hypertension; E11.65 Type 2 diabetes mellitus with hyperglycemia; E11.43 Type 2 diabetes mellitus with diabetic autonomic (poly)neuropathy; K31.84 Gastroparesis; R00.0 Tachycardia, unspecified; Z89.511 Acquired absence of right leg below knee
CPT/HCPCS: 36415; 36430; 71045-TC-FY; 74019-TC-FY; 80048; 80053; 81003; 81015; 82009; 82272; 82728; 82962; 83036; 83540; 83550; 83735; 84100; 84484; 85025; 85027; 85610; 85730; 86850; 86900; 86901; 86922; 87086; 88305-TC; 93005; 93010; 99284-25; J7030; P9038; P9058